=== PATIENT | male | born 1970 | race Hispanic/Latino ===

== ENCOUNTER 2016-06-23 18:26 | Inpatient (IN) | payer BC, MEDICAID ==
[2016-06-23] MEDS ORDERED: Sodium Chloride 0.9% 1,000 ML IV STA (18:59)
[2016-06-23 19:08] LABS: BASO # 0.1 K/uL (0.0-0.2); BASO % 0.6 % (0.0-2.0); EOS % 0.1 % (0.0-4.0); HEMATOCRIT 56.5 % (35.0-51.0); LYMPH # 1.1 K/uL (1.0-4.3); LYMPH % 6.1 % (20.0-40.0); MEAN CELL VOLUME 86.3 fL (80.0-94.0); MEAN CORPUSCULAR HEMOGLOBIN 28.1 pg (27.0-31.0); MEAN CORPUSCULAR HGB CONC 32.6 g/dL (33.0-37.0); MEAN PLATELET VOLUME 8.4 fL (7.2-11.7); MONO # 0.6 K/uL (0.0-0.8); MONO % 3.5 % (0.0-10.0); NRBC % 0.2 % (0.0-2.0); PLATELET COUNT 313 K/uL (130-400); RED CELL DISTRIBUTION WIDTH 13.6 % (11.5-14.5); WHITE BLOOD COUNT 18.2 K/uL (4.8-10.8)
[2016-06-23 19:20] LABS: VENOUS BLOOD GAS BASE EXCESS -29.1 mmol/L (0.0-2.0); VENOUS BLOOD GAS PCO2 12 mmHg (40-60)
[2016-06-23 19:22] LABS: NEUTROPHIL 88 % (50-75); TOTAL CELLS COUNTED 100
[2016-06-23] MEDS ORDERED: Potassium Chloride 20 mEq 100 ML IVPB ONE ×2 (19:22→19:28)
--- NOTE | 2016-06-23 19:23 | RAD ---
PROCEDURE: CHEST RADIOGRAPH, 1 VIEW HISTORY: Diabetic COMPARISON: None available. FINDINGS: LUNGS: Diffuse increased interstitial markings suggestive for venous congestion and or interstitial infiltrates. Left hilar prominence. Biapical pleural thickening with upper lobe granulomatous changes. PLEURA: As above. CARDIOVASCULAR: Cardiomegaly. Prominent aorta. OSSEOUS STRUCTURES: Degenerative changes in the spine and shoulders. VISUALIZED UPPER ABDOMEN: Normal. OTHER FINDINGS: None. IMPRESSION: Diffuse increased interstitial markings suggestive for venous congestion and or interstitial infiltrates. Left hilar prominence. Biapical pleural thickening with upper lobe granulomatous changes.
[2016-06-23 19:25] LABS: CHLORIDE 90 mmol/L (98-107); SODIUM 135 mmol/L (132-148)
[2016-06-23 19:26] LABS: POTASSIUM 4.9 mmol/L (3.6-5.2)
[2016-06-23 19:27] LABS: GFR AFRICAN-AMERICAN > 60
[2016-06-23 19:28] LABS: ALB/GLOB RATIO 1.3 (1.0-2.1); ALKALINE PHOSPHATASE 125 U/L (38-126); ALT/SGPT 26 U/L (21-72); AST/SGOT 18 U/L (17-59); BILIRUBIN,TOTAL 0.6 mg/dL (0.2-1.3); BLOOD UREA NITROGEN 24 mg/dL (9-20); TOTAL PROTEIN 7.9 g/dL (6.3-8.3)
[2016-06-23 19:29] LABS: CALCIUM 8.9 mg/dl (8.6-10.4); MAGNESIUM 2.2 mg/dL (1.6-2.3)
[2016-06-23] MEDS ORDERED: Dextrose 5%/0.9% NS 1,000 ML IV ONE (19:31)
[2016-06-23 19:36] LABS: RBC URINE < 1 /hpf (0-3); URINE BILIRUBIN NEGATIVE (NEGATIVE); URINE BLOOD 1+ (NEGATIVE); URINE COLOR Yellow (YELLOW); URINE GLUCOSE (UA) 3+ mg/dL (Normal); URINE KETONE 2+ mg/dL (NEGATIVE); URINE LEUKOCYTE ESTERASE NEG Leu/uL (Negative); URINE PROTEIN 1+ mg/dL (NEGATIVE); URINE UROBILINOGEN NORMAL mg/dL (0.2-1.0); WBC URINE 2 /hpf (0-5)
[2016-06-23] MEDS ORDERED: Sodium Chloride 0.9% 1,000 ML IV ONE (19:37)
[2016-06-23 19:56] LABS: CARBON DIOXIDE 9 mmol/L (22-30); GLUCOSE,RANDOM 589 mg/dL (75-110)
--- NOTE | 2016-06-23 20:01 | C.PDOC ---
Time Seen by Provider: 06/23/16 18:55 Chief Complaint (Nursing): High Blood Sugar History Per: Patient, Family Onset/Duration Of Symptoms: Hrs (since last night) Current Symptoms Are (Timing): Still Present Severity: Severe Current Diabetic Medications: Insulin Associated Infectious Symptoms: Nausea, Vomiting Additional History Per: Prior Records Past Medical History Reviewed: Historical Data, Nursing Documentation, Vital Signs Vital Signs: Last Vital Signs Temp Pulse 139 H 06/23/16 18:52 Resp 40 H 06/23/16 18:52 BP 147/63 06/23/16 18:52 Pulse Ox 98 06/23/16 18:52 - Medical History PMH: Diabetes (Type 1), HTN Surgical History: No Surg Hx Family History: States: Unknown Family Hx - Social History Hx Alcohol Use: No Hx Substance Use: No Review Of Systems Except As Marked, All Systems Reviewed And Found Negative. Constitutional: Positive for: Weakness Cardiovascular: Negative for: Chest Pain Respiratory: Negative for: Hemoptysis Gastrointestinal: Positive for: Nausea, Vomiting Musculoskeletal: Negative for: Neck Pain Skin: Negative for: Rash Neurological: Negative for: Weakness, Numbness, Seizures Physical Exam - Physical Exam Appears: Toxic, In Acute Distress Skin: Normal Color, Warm, Dry Head: Atraumatic, Normacephalic Eye(s): bilateral: PERRL, EOMI Oral Mucosa: Dry Neck: Normal ROM, Supple Cardiovascular: Rhythm Regular Respiratory: Normal Breath Sounds, No Accessory Muscle Use, Other (tachypnea) Gastrointestinal/Abdominal: Soft, No Tenderness Extremity: Normal ROM, No Deformity Neurological/Psych: Oriented x3, Normal Motor, Normal Sensation ED Course And Treatment - Laboratory Results Result Diagrams: 06/23/16 19:06 06/23/16 19:06 Lab Interpretation: Abnormal Interpretation Of Abnormal: Hyperglycemia. Acidosis. ECG: Interpreted By Me, Viewed By Me ECG Rhythm: Sinus Tachycardia, Nonspecific Changes ECG Interpretation: Abnormal Rate From EC O2 Sat by Pulse Oximetry: 98 Pulse Ox Interpretation: Normal - Radiology CXR: Viewed By Me, Read By Radiologist CXR Interpretation: Yes: Other (Diffuse increased interstitial markings suggestive for venous congestion and or interstitial infiltrates. Left hilar prominence. Biapical pleural thickening with upper lobe granulomatous changes.) - Physician Consult Information Physician Contacted: Boston Tucker Outcome Of Conversation: He accepted pt to ICU and agrees with current management. Progress - Interventions Interventions:: Observation, Intravenous fluid, Oxygen - Medications Administered Intravenous: Other (KCl. Insulin drip. ) - Data Reviewed Data Reviewed: Lab, Diagnostic imaging, EKG, Old records - Patient Status Patient status: Partially improved, Critical - Critical Care Citical Care: Excluding Proc Time Critical Care Time: 60 minutes - Continuity of Care Discussed patient case with:: Patient, Family-HIPPA compliant, ED Nurse, On- call PMD-pt unassigned Discussed pt. case with bi consultant/specialty: Pulmonary/Crit. Care - Patient Plan Patient Plan: Admission, ICU Disposition Discussed With DrLouis: Wang Hernandez Comment: He accepted pt on hospitalist service and agrees with current management. Doctor Will See Patient In The: Hospital Counseled Patient/Family Regarding: Studies Performed, Diagnosis - Disposition Disposition: HOSPITALIZED Disposition Time: 20:03 Condition: CRITICAL - Clinical Impression Clinical Impression: Diabetic ketoacidosis
--- NOTE | 2016-06-23 20:21 | CP.PCM.CON ---
History of Present Illness - History of Present Illness History of Present Illness: 46M DM1, HTN with acute onset of abd pain, n/v, polyuria and polydipsia that started today. Pt states he ate some seafood yesterday and is likely suffering from food poisoning. Denies brown/dizziness/chest pain/fevers/cough/sputum production. also has experienced tachypnea which prompted visit to ED. IN ED, workup reveals DKA and has been started on aggressive IVF resuscitation and Insulin gtt. ICU consult now requested. Review of Systems - Constitutional Constitutional: As Per HPI - EENT Eyes: absent: Blurred Vision, Diplopia Nose/Mouth/Throat: Dry Mouth - Cardiovascular Cardiovascular: absent: Chest Pain, Diaphoresis, Dyspnea, Edema, Irregular Heart Rhythm, Leg Edema - Respiratory Respiratory: absent: Cough, Dyspnea, Wheezing, Stridor - Gastrointestinal Gastrointestinal: Abdominal Pain, Nausea, Vomiting. absent: Diarrhea - Genitourinary Genitourinary: Urinary Frequency - Neurological Neurological: absent: Confusion, Dizziness, Numbness, Focal Weakness - Endocrine Endocrine: Polydipsia, Polyuria Past Patient History - Past Social History Smoking Status: Never Smoked Alcohol: None Drugs: Denies Home Situation {Lives}: With Family - CARDIAC Hx Hypertension: Yes - ENDOCRINE/METABOLIC Hx Diabetes Mellitus Type 1: Yes - PSYCHIATRIC Hx Substance Use: No Meds Allergies/Adverse Reactions: Allergies Allergy/AdvReac Type Severity Reaction Status Date / Time No Known Allergies Allergy Verified 06/23/16 18:52 - Medications Medications: Current Medications Acetaminophen (Tylenol 325mg Tab) 650 mg PO Q6 PRN PRN Reason: Headache Famotidine (Pepcid) 20 mg PO Q12 KIM Potassium Chloride (Potassium Chloride 20 Meq/100 Ml) 100 mls @ 50 mls/hr IVPB ONCE ONE Stop: 06/23/16 21:21 Insulin Human Regular 100 unit (/ Sodium Chloride) 100 mls @ 4 mls/hr IV .Q24H KIM PRN Reason: Protocol Sodium Chloride (Sodium Chloride 0.9%) 1,000 mls @ 1,000 mls/hr IV .Q1H ONE Stop: 06/23/16 20:36 Sodium Chloride (Sodium Chloride 0.9%) 1,000 mls @ 1,000 mls/hr IV .Q1H KIM Stop: 06/23/16 22:14 Sodium Chloride (Sodium Chloride 0.9%) 1,000 mls @ 200 mls/hr IV .Q5H [facility] Potassium Phosphate 15 mmole/ (Sodium Chloride) 255 mls @ 63 mls/hr IV ONCE ONE Stop: 06/24/16 00:12 Morphine Sulfate (Morphine) 2 mg IVP Q4H PRN PRN Reason: Pain, moderate (4-7) Ondansetron HCl (Zofran Inj) 4 mg IVP Q6H PRN PRN Reason: Nausea/Vomiting Physical Exam - Constitutional Appears: In Acute Distress (tachypneac, tachycardic) - Head Exam Head Exam: ATRAUMATIC, NORMAL INSPECTION, NORMOCEPHALIC - Eye Exam Eye Exam: EOMI, Normal appearance, PERRL - ENT Exam ENT Exam: Mucous Membranes Dry, Normal Exam - Neck Exam Neck exam: Positive for: Normal Inspection - Respiratory Exam Respiratory Exam: Clear to Auscultation Bilateral. absent: Rales, Rhonchi, Wheezes - Cardiovascular Exam Cardiovascular Exam: Tachycardia, REGULAR RHYTHM, +S1, +S2. absent: Diastolic murmur, Systolic Murmur - GI/Abdominal Exam GI & Abdominal Exam: Normal Bowel Sounds, Soft. absent: Distended, Tenderness - Extremities Exam Extremities exam: Positive for: normal inspection. Negative for: pedal edema, tenderness - Neurological Exam Neurological exam: Alert, CN II-XII Intact, Oriented x3 - Skin Skin Exam: Dry, Intact, Normal Color, Warm Results - Vital Signs Recent Vital Signs: Last Vital Signs Temp Pulse 139 H 06/23/16 18:52 Resp 40 H 06/23/16 18:52 BP 147/63 06/23/16 18:52 Pulse Ox 98 06/23/16 20:03 - Labs Result Diagrams: 06/23/16 19:06 06/23/16 19:06 Labs: Laboratory Results - last 24 hr 06/23/16 06/23/16 06/23/16 19:06 19:10 19:31 WBC 18.2 H RBC 6.54 H Hgb 18.4 H Hct 56.5 H MCV 86.3 MCH 28.1 MCHC 32.6 L RDW 13.6 Plt Count 313 MPV 8.4 Neut % (Auto) 89.7 H Lymph % (Auto) 6.1 L [place] % (Auto) 3.5 Eos % (Auto) 0.1 Baso % (Auto) 0.6 Neut # 16.3 H Lymph # 1.1 [place] # 0.6 Eos # 0.0 Baso # 0.1 Neutrophils % (Manual) 88 H Lymphocytes % (Manual) 10 L Monocytes % (Manual) 2 Platelet Estimate Normal pO2 80 H VBG pH 6.90 L* VBG pCO2 12 L* VBG HCO3 1.8 VBG Total CO2 2.8 L VBG O2 Sat (Calc) 97.6 H VBG Base Excess -29.1 L VBG Potassium 2.0 L* Glucose 284 H Lactate 1.8 Crit Value Called To Dr. gautam Crit Value Called By Chanda liriano rcp Crit Value Read Back Y Blood Gas Notified Time 1919 Sodium 135 144.0 Potassium 4.9 Chloride 90 L 126.0 H Carbon Dioxide 9 L* Anion Gap 41 H BUN 24 H Creatinine 1.5 Est GFR ( Amer) > 60 Est GFR (Non-Af Amer) 51 Random Glucose 589 H* Calcium 8.9 Phosphorus 10.0 H Magnesium 2.2 Total Bilirubin 0.6 AST 18 ALT 26 Alkaline Phosphatase 125 Troponin I < 0.0120 Total Protein 7.9 Albumin 4.4 Globulin 3.4 Albumin/Globulin Ratio 1.3 Lipase 3834 H Venous Blood Potassium 2.0 L* Urine Color Yellow Urine Clarity Clear Urine pH 5.0 Ur Specific [place] 1.023 Urine Protein 1+ H Urine Glucose (UA) 3+ H Urine Ketones 2+ H Urine Blood 1+ H Urine Nitrate Negative Urine Bilirubin Negative Urine Urobilinogen Normal Ur Leukocyte Esterase Neg Urine WBC (Auto) 2 Urine RBC (Auto) < 1 - Imaging and Cardiology Chest x-ray Status: Image reviewed by me (Poor inspiratory film; L hilar and basilar prominence) Assessment & Plan - Assessment and Plan (Free Text) Assessment: 46M DM1, HTN p/w acute DKA and possible acute pancreatitis admit to ICU cont aggressive IVF resuscitation insulin gtt with FSG q1 close monitoring of electrolytes and aggressive repletion maintain NPO follow lipase levels; if remain elevated, would consider CT scan and further workup symtomatic management and supportive care GI / DVT PPx d/w pt and family at bedside Boston Tucker MD cc time spent 40min
[2016-06-23] MEDS: Insulin Human Regular 100 UNIT in Sodium Chloride 0.9% 99 ML IV SCH (20:50)
[2016-06-23] MEDS: Sodium Chloride 0.9% 1,000 ML IV SCH ×3 (20:52→21:52)
[2016-06-23] MEDS ORDERED: Potassium Phosphate 15 MMOLE in Sodium Chloride 0.9% 250 ML IV ONE (21:00)
[2016-06-23 23:27] LABS: CHLORIDE 101 mmol/L (98-107)
[2016-06-23 23:28] LABS: SODIUM 137 mmol/L (132-148)
[2016-06-23 23:30] LABS: ALB/GLOB RATIO 1.3 (1.0-2.1); ALKALINE PHOSPHATASE 107 U/L (38-126); AST/SGOT 15 U/L (17-59); BILIRUBIN,TOTAL 0.4 mg/dL (0.2-1.3); BLOOD UREA NITROGEN 22 mg/dL (9-20); GFR AFRICAN-AMERICAN > 60; GLUCOSE,RANDOM 368 mg/dL (75-110); TOTAL PROTEIN 7.3 g/dL (6.3-8.3)
[2016-06-23 23:31] LABS: ALT/SGPT 16 U/L (21-72); CALCIUM 7.8 mg/dl (8.6-10.4); MAGNESIUM 1.9 mg/dL (1.6-2.3); PHOSPHOROUS 5.5 mg/dL (2.5-4.5)
[2016-06-23 23:35] LABS: CARBON DIOXIDE < 5 mmol/L (22-30); POTASSIUM 6.3 mmol/L (3.6-5.2)
[2016-06-24] MEDS: Sodium Chloride 0.9% 1,000 ML IV SCH ×3 (01:00→06:00)
--- NOTE | 2016-06-24 05:14 | CP.PCM.HP ---
<Jennifer Romero - Last Filed: 06/24/16 04:59> History of Present Illness - History of Present Illness History of Present Illness: CC: nausea, vomiting, hyperglycemia HPI: Pt is a 46 year old male who presented to the ED with nausea, vomiting, polydipsia, and hyperglycemia. Patient notes he started to have abdominal pain and emesis at 3 AM on Friday which he attributed to food poisoning from eating shellfish the night prior. Patient states he checked his blood sugar around 5 am and noted it to be in the 400s. Patient developed significant shortness of breath in the afternoon which prompted him to come to the hospital. Patient states he does not regularly check his sugars. He is compliant with his medications: Lantus 35 U SC BID and Humolog 10 U before breakfast. Patient states he was diagnosed with DM type I 10 years ago and was last hospitalized with DKA 5 years ago. Initial VBG: pH 6.90, pCO2 12, HCO3 1.8, Potassium 2.0, High Anion Gap 36 Glucose 284, repeat potassium and glucose 4.9 and 589, respectively Patient admitted to ICU for DKA. PMD: Dr. Martin PMH: DM type I , HTN Medications: Lantus 35 U SC BID and Humolog 10 U before breakfast Allergies: NKDA Family History: Grandfather: CAD Surgical Hx: Detached retina repair, Cyst excision to back Social: Never smoker. Denies alcohol and illicit drug use. Present on Admission - Present on Admission Any Indicators Present on Admission: No History of DVT/PE: No History of Uncontrolled Diabetes: Yes Urinary Catheter: No Decubitus Ulcer Present: No Review of Systems - Constitutional Constitutional: absent: Chills, Fever, Headache, Weakness - EENT Eyes: absent: Change in Vision - Cardiovascular Cardiovascular: absent: Chest Pain, Dyspnea - Respiratory Respiratory: absent: Dyspnea on Exertion - Gastrointestinal Gastrointestinal: Abdominal Pain, Nausea, Vomiting. absent: Constipation, Diarrhea - Genitourinary Genitourinary: absent: Urinary Frequency - Musculoskeletal Musculoskeletal: absent: Arthralgias, Back Pain - Integumentary Integumentary: absent: Changing Lesions, New Lesions - Neurological Neurological: absent: Confusion, Dizziness, Focal Weakness, Headaches - Psychiatric Psychiatric: absent: Anxiety Past Patient History - Past Medical History & Family History Past Medical History?: Yes - Past Social History Smoking Status: Never Smoked - CARDIAC Hx Cardiac Disorders: Yes Hx Hypertension: Yes - PULMONARY Hx Respiratory Disorders: No - NEUROLOGICAL Hx Neurological Disorder: No - HEENT Hx HEENT Problems: No - RENAL Hx Chronic Kidney Disease: No - ENDOCRINE/METABOLIC Hx Endocrine Disorders: Yes Hx Diabetes Mellitus Type 1: Yes - HEMATOLOGICAL/ONCOLOGICAL Hx Blood Disorders: No - INTEGUMENTARY Hx Dermatological Problems: No - MUSCULOSKELETAL/RHEUMATOLOGICAL Hx Musculoskeletal Disorders: No Hx Falls: No - GASTROINTESTINAL Hx Gastrointestinal Disorders: No - GENITOURINARY/GYNECOLOGICAL Hx Genitourinary Disorders: No - PSYCHIATRIC Hx Psychophysiologic Disorder: No Hx Substance Use: No - SURGICAL HISTORY Hx Surgeries: No - ANESTHESIA Hx Anesthesia: No Meds Allergies/Adverse Reactions: Allergies Allergy/AdvReac Type Severity Reaction Status Date / Time No Known Allergies Allergy Verified 06/23/16 18:52 Physical Exam - Constitutional Appears: Non-toxic Additional comments: increased respiratory rate - Head Exam Head Exam: ATRAUMATIC, NORMAL INSPECTION, NORMOCEPHALIC - Eye Exam Eye Exam: EOMI, Normal appearance, PERRL - ENT Exam ENT Exam: Mucous Membranes Moist - Neck Exam Neck exam: Positive for: Normal Inspection - Respiratory Exam Respiratory Exam: Clear to Auscultation Bilateral Additional comments: increased respiratory rate - Cardiovascular Exam Cardiovascular Exam: Tachycardia, +S1, +S2. absent: Diastolic murmur, Systolic Murmur - GI/Abdominal Exam GI & Abdominal Exam: Normal Bowel Sounds, Soft. absent: Firm, Guarding - Extremities Exam Extremities exam: Positive for: normal inspection. Negative for: pedal edema, tenderness - Back Exam Back exam: NORMAL INSPECTION - Neurological Exam Neurological exam: Oriented x3 - Psychiatric Exam Psychiatric exam: Normal Affect, Normal Mood - Skin Skin Exam: Intact, Normal Color Results - Vital Signs Recent Vital Signs: Last Vital Signs Temp 97.2 F L 06/24/16 04:00 Pulse 119 H 06/24/16 04:00 Resp 35 H 06/24/16 04:00 BP 135/82 06/24/16 03:30 Pulse Ox 100 06/24/16 04:00 - Labs Result Diagrams: 06/23/16 19:06 06/23/16 23:22 Labs: Laboratory Results - last 24 hr 06/23/16 06/23/16 06/23/16 20:27 22:40 23:12 Sodium Potassium Chloride Carbon Dioxide Anion Gap BUN Creatinine Est GFR ( Amer) Est GFR (Non-Af Amer) POC Glucose (mg/dL) 341 H 288 H 252 H Random Glucose Calcium Phosphorus Magnesium Total Bilirubin AST ALT Alkaline Phosphatase Total Protein Albumin Globulin Albumin/Globulin Ratio 06/23/16 06/24/16 06/24/16 23:22 00:17 01:13 Sodium 137 Potassium 6.3 H* D Chloride 101 Carbon Dioxide < 5 L* D Anion Gap 37 H BUN 22 H Creatinine 1.2 Est GFR ( Amer) > 60 Est GFR (Non-Af Amer) > 60 POC Glucose (mg/dL) 300 H 341 H Random Glucose 368 H Calcium 7.8 L Phosphorus 5.5 H Magnesium 1.9 Total Bilirubin 0.4 AST 15 L ALT 16 L D Alkaline Phosphatase 107 Total Protein 7.3 Albumin 4.1 Globulin 3.2 Albumin/Globulin Ratio 1.3 06/24/16 06/24/16 06/24/16 02:05 03:09 03:57 Sodium Potassium Chloride Carbon Dioxide Anion Gap BUN Creatinine Est GFR ( Amer) Est GFR (Non-Af Amer) POC Glucose (mg/dL) 242 H 262 H 200 H Random Glucose Calcium Phosphorus Magnesium Total Bilirubin AST ALT Alkaline Phosphatase Total Protein Albumin Globulin Albumin/Globulin Ratio Assessment & Plan - Assessment and Plan (Free Text) Assessment: 1. DKA Admit to ICU Insulin drip Normal Saline IV @200cc/hr Potassium Chloride IV Zofran 4 mg IVP Q6h Accuchecks q1h f/u hemoglobin a1c Continue care per ICU team - Date & Time Date: 06/24/16 Time: 05:20 <Wang Hernandez P - Last Filed: 06/28/16 08:38> Results - Vital Signs Recent Vital Signs: Last Vital Signs Temp 98.1 F 06/28/16 07:23 Pulse 78 06/28/16 07:23 Resp 20 06/28/16 07:23 BP 140/81 06/28/16 07:23 Pulse Ox 96 06/28/16 07:23 - Labs Result Diagrams: 06/28/16 07:40 06/28/16 07:40 Labs: Laboratory Results - last 24 hr 06/27/16 06/27/16 06/27/16 08:27 12:01 16:43 WBC RBC Hgb Hct MCV MCH MCHC RDW Plt Count MPV Neut % (Auto) Lymph % (Auto) [place] % (Auto) Eos % (Auto) Baso % (Auto) Neut # Lymph # [place] # Eos # Baso # Sodium 134 Potassium 3.4 L Chloride 102 Carbon Dioxide 17 L Anion Gap 18 BUN 8 L Creatinine 0.6 L Est GFR ( Amer) > 60 Est GFR (Non-Af Amer) > 60 POC Glucose (mg/dL) 162 H 139 H Random Glucose 128 H Calcium 7.8 L Phosphorus 2.6 Magnesium 1.8 Total Bilirubin 0.9 AST 16 L ALT 26 Alkaline Phosphatase 70 Total Protein 6.0 L Albumin 2.9 L D Globulin 3.2 Albumin/Globulin Ratio 0.9 L Triglycerides 98 Cholesterol 146 LDL Cholesterol Direct 91 HDL Cholesterol 33 Lipase 748 H TSH 3rd Generation 3.35 06/27/16 06/28/16 06/28/16 22:06 06:06 07:01 WBC RBC Hgb Hct MCV MCH MCHC RDW Plt Count MPV Neut % (Auto) Lymph % (Auto) [place] % (Auto) Eos % (Auto) Baso % (Auto) Neut # Lymph # [place] # Eos # Baso # Sodium Potassium Chloride Carbon Dioxide Anion Gap BUN Creatinine Est GFR ( Amer) Est GFR (Non-Af Amer) POC Glucose (mg/dL) 71 111 H 94 Random Glucose Calcium Phosphorus Magnesium Total Bilirubin AST ALT Alkaline Phosphatase Total Protein Albumin Globulin Albumin/Globulin Ratio Triglycerides Cholesterol LDL Cholesterol Direct HDL Cholesterol Lipase TSH 3rd Generation 06/28/16 07:40 WBC 5.7 RBC 4.99 Hgb 13.5 Hct 39.7 MCV 79.5 L D MCH 27.1 MCHC 34.1 RDW 13.5 Plt Count 169 MPV 7.9 Neut % (Auto) 60.3 Lymph % (Auto) 26.7 [place] % (Auto) 10.6 H Eos % (Auto) 1.8 Baso % (Auto) 0.6 Neut # 3.4 Lymph # 1.5 [place] # 0.6 Eos # 0.1 Baso # 0.0 Sodium 137 Potassium 3.0 L Chloride 102 Carbon Dioxide 21 L Anion Gap 17 BUN 7 L Creatinine 0.6 L Est GFR ( Amer) > 60 Est GFR (Non-Af Amer) > 60 POC Glucose (mg/dL) Random Glucose 106 Calcium 7.8 L Phosphorus 3.2 Magnesium 1.8 Total Bilirubin 0.6 AST 12 L D ALT 17 L D Alkaline Phosphatase 63 Total Protein 5.5 L Albumin 2.8 L Globulin 2.8 Albumin/Globulin Ratio 1.0 Triglycerides Cholesterol LDL Cholesterol Direct HDL Cholesterol Lipase TSH 3rd Generation Attending/Attestation - Attestation I have personally seen and examined this patient.: Yes I have fully participated in the care of the patient.: Yes I have reviewed all pertinent clinical information: Yes
[2016-06-24 06:37] LABS: BASO # 0.1 K/uL (0.0-0.2); BASO % 0.4 % (0.0-2.0); HEMATOCRIT 49.5 % (35.0-51.0); LYMPH # 1.4 K/uL (1.0-4.3); LYMPH % 10.1 % (20.0-40.0); MEAN CELL VOLUME 82.8 fL (80.0-94.0); MEAN CORPUSCULAR HGB CONC 33.8 g/dL (33.0-37.0); MEAN PLATELET VOLUME 7.9 fL (7.2-11.7); MONO # 1.3 K/uL (0.0-0.8); MONO % 8.8 % (0.0-10.0); NRBC % 0.1 % (0.0-2.0); RED CELL DISTRIBUTION WIDTH 13.6 % (11.5-14.5); WHITE BLOOD COUNT 14.2 K/uL (4.8-10.8)
[2016-06-24 06:40] LABS: CHLORIDE 105 mmol/L (98-107); POTASSIUM 5.7 mmol/L (3.6-5.2); SODIUM 141 mmol/L (132-148)
[2016-06-24 06:42] LABS: ALB/GLOB RATIO 1.1 (1.0-2.1); AMYLASE 813 U/L (30-110); BILIRUBIN,TOTAL 0.7 mg/dL (0.2-1.3); GFR AFRICAN-AMERICAN > 60; TOTAL PROTEIN 7.1 g/dL (6.3-8.3)
[2016-06-24 06:43] LABS: ALKALINE PHOSPHATASE 85 U/L (38-126); ALT/SGPT 26 U/L (21-72); AST/SGOT 17 U/L (17-59); BLOOD UREA NITROGEN 18 mg/dL (9-20); CALCIUM 8.1 mg/dl (8.6-10.4); GLUCOSE,RANDOM 190 mg/dL (75-110); MAGNESIUM 2.1 mg/dL (1.6-2.3); PHOSPHOROUS 2.7 mg/dL (2.5-4.5)
[2016-06-24 06:53] LABS: CARBON DIOXIDE 11 mmol/L (22-30)
[2016-06-24 07:12] LABS: THYROID STIMULATING HORMONE 1.02 mIU/L (0.46-4.68)
[2016-06-24] MEDS: Dextrose 5%/0.9% NS 1,000 ML IV SCH ×3 (07:30→20:06)
[2016-06-24] MEDS ORDERED: Sodium Chloride 0.9% 1,000 ML IV SCH (07:39)
--- NOTE | 2016-06-24 09:16 | CP.PCM.PN ---
Subjective - Date & Time of Evaluation Date of Evaluation: 06/24/16 Time of Evaluation: 09:10 - Subjective Subjective: Medical Attending Note Follow-up: DKA, Abdominal Pain Patient seen and examined. Patient denies headache, denies chest pain, denies shortness of breathe, denies abdominal pain, denies nausea, denies vomitting, denies BRBPR, denies constipation, denies diarrhea. Patient reports 1.5 days ago, he went to a restaurant which is known to him from before, but it was the first time he was trying seafood. Patient denies swelling, denies itchiness, denies allergy type symptoms. Objective - Vital Signs/Intake and Output Vital Signs (last 24 hours): Temp Pulse Resp BP Pulse Ox 97.2 F L 114 H 22 132/71 100 06/24/16 04:00 06/24/16 07:00 06/24/16 07:00 06/24/16 06:30 06/24/16 07:00 Intake and Output: 06/24/16 06/24/16 06:59 18:59 Intake Total 2698 202 Output Total 3900 150 Balance -1202 52 - Medications Medications: Current Medications Acetaminophen (Tylenol 325mg Tab) 650 mg PO Q6 PRN PRN Reason: Headache Famotidine (Pepcid) 20 mg PO Q12 [facility] Last Admin: 06/23/16 21:44 Dose: 20 mg Insulin Human Regular 100 unit (/ Sodium Chloride) 100 mls @ 4 mls/hr IV .Q24H KIM PRN Reason: Protocol Last Titration: 06/24/16 05:15 Dose: 2 units/hr Dextrose/Sodium Chloride (Dextrose 5%/0.9% Ns 1000 Ml) 1,000 mls @ 175 mls/hr IV .Q5H43M KIM Sodium Chloride (Sodium Chloride 0.9%) 1,000 mls @ 50 mls/hr IV .Q20H KIM Morphine Sulfate (Morphine) 2 mg IVP Q4H PRN PRN Reason: Pain, moderate (4-7) Ondansetron HCl (Zofran Inj) 4 mg IVP Q6H PRN PRN Reason: Nausea/Vomiting - Labs Labs: 06/24/16 06:20 06/24/16 06:20 - Constitutional Appears: Non-toxic, No Acute Distress - Head Exam Head Exam: NORMAL INSPECTION - Eye Exam Eye Exam: EOMI - ENT Exam ENT Exam: Mucous Membranes Moist - Respiratory Exam Respiratory Exam: Clear to Ausculation Bilateral, NORMAL BREATHING PATTERN. absent: Rales, Rhonchi - Cardiovascular Exam Cardiovascular Exam: RRR, +S1, +S2 - GI/Abdominal Exam GI & Abdominal Exam: Soft, Tenderness (generalized), Normal Bowel Sounds. absent: Distended, Firm, Guarding, Rigid, Rebound - Extremities Exam Extremities Exam: absent: Pedal Edema, Tenderness - Neurological Exam Neurological Exam: Alert, Awake, Oriented x3 - Psychiatric Exam Psychiatric exam: Normal Affect, Normal Mood - Skin Skin Exam: Dry, Normal Color, Warm Assessment and Plan (1) DKA (diabetic ketoacidosis) Assessment & Plan: D5 NS 175 cc/hr Monitor anion gap Monitor potassium Monitor CO2 Insulin drip Management per ICU Patient reports he is compliant on his insulin regiment, and reports he sees a genetic coordinator (a doctor) as an outpatient. Status: Acute (2) Abdominal pain Assessment & Plan: Lipase uptrendning Mild abdominal pain upon palpation Ordered for blood alcohol, lipid panel Abdominal US ordered check for CBD/gallstones Ordered for CT abdomen/pelvis PO contrast Status: Acute (3) Prophylactic measure Assessment & Plan: DVT ppx: Lovenox 40mg subq daily GI ppx: Pepcid 20mg IV Q 12hours Status: Acute
[2016-06-24] MEDS ORDERED: Pneumococcal 23-Valent Vaccine SC ONE (09:50)
[2016-06-24] MEDS ORDERED: Enoxaparin 40 mg Syringe SC SCH (10:00)
[2016-06-24] MEDS: Enoxaparin 40 mg Syringe SC SCH (10:44)
--- NOTE | 2016-06-24 11:04 | US ---
HISTORY: check CBD, gallstones COMPARISON: None. TECHNIQUE: Sonographic evaluation of the abdomen. FINDINGS: LIVER: Measures 15.5 cm. There is diffuse increased echogenicity of the liver parenchyma. No mass. No intrahepatic bile duct dilatation. GALLBLADDER: The gallbladder is well distended without evidence of gallstones, wall thickening or pericholecystic fluid. The sonographic Russo's sign is negative. COMMON BILE DUCT: Measures 0.3 mm. No stones. No dilatation. PANCREAS: Unremarkable as visualized. No mass. No ductal dilatation. RIGHT KIDNEY: Measures 13.2cm. Normal echogenicity. No calculus, mass, or hydronephrosis. LEFT KIDNEY: Measures 13.2cm. Normal echogenicity. No calculus, mass, or hydronephrosis. SPLEEN: Normal in size and contour. No mass. AORTA: No aneurysmal dilatation. IVC: Unremarkable. OTHER FINDINGS: There is small amount of free fluid in the Morison's pouch. IMPRESSION: Diffuse increased echogenicity in the liver may reflect hepatic steatosis however parenchymal infectious/ inflammatory etiologies cannot be entirely excluded. Clinical and laboratory correlation is advised. No evidence of cholelithiasis or biliary dilatation.
[2016-06-24] MEDS ORDERED: Iohexol 240 (50 ml) PO ONE (11:30)
--- NOTE | 2016-06-24 14:29 | CT ---
PROCEDURE: CT Abdomen and Pelvis without IV contrast. HISTORY: abdominal pain, elevated lipase COMPARISON: Abdominal ultrasound performed 06/24/16 TECHNIQUE: Contiguous axial images of the abdomen and pelvis. Oral contrast was administered. No IV contrast given. Coronal and Sagittal reformats generated and reviewed. Radiation dose: Total exam DLP = 1149.04 mGy-cm. FINDINGS: There is limited evaluation of the solid organs without the administration of IV contrast. LOWER THORAX: Mild bibasilar atelectasis. There is no visible pleural effusion or pneumothorax. Small hiatal hernia/distal esophageal wall thickening and evidence of gastroesophageal reflux. LIVER: Unremarkable unenhanced appearance. GALLBLADDER AND BILE DUCTS: Unremarkable unenhanced appearance. PANCREAS: Peripancreatic inflammatory stranding, peripancreatic adenopathy, and mild pancreatic edema consistent with acute pancreatitis. SPLEEN: Unremarkable unenhanced appearance. ADRENALS: Unremarkable unenhanced appearance. KIDNEYS AND URETERS: No hydronephrosis or obstructing renal calculus. BLADDER: The urinary bladder appears unremarkable. REPRODUCTIVE: Unremarkable. APPENDIX: The appendix appears within normal limits of caliber. No secondary signs of acute appendicitis. BOWEL: The stomach is nondistended. The bowel loops appear within normal limits of caliber without evidence of intestinal obstruction. PERITONEUM: No significant free fluid. No definite free air. LYMPH NODES: Prominent peripancreatic lymph nodes. VASCULATURE: No aortic aneurysm. BONES: No acute osseous abnormality is detected. OTHER FINDINGS: None. IMPRESSION: Peripancreatic inflammatory stranding, peripancreatic adenopathy, and mild pancreatic edema consistent with acute pancreatitis. Small hiatal hernia/distal esophageal wall thickening and evidence of gastroesophageal reflux. Recommend further evaluation with endoscopy given prominent distal esophageal wall thickening of unclear significance.
[2016-06-24 14:54] LABS: CHLORIDE 106 mmol/L (98-107)
[2016-06-24 14:56] LABS: POTASSIUM 3.9 mmol/L (3.6-5.2); SODIUM 136 mmol/L (132-148)
[2016-06-24 14:57] LABS: BILIRUBIN,TOTAL 0.6 mg/dL (0.2-1.3); CARBON DIOXIDE 13 mmol/L (22-30); GFR AFRICAN-AMERICAN > 60
[2016-06-24 14:58] LABS: ALKALINE PHOSPHATASE 75 U/L (38-126); ALT/SGPT 23 U/L (21-72); AST/SGOT 20 U/L (17-59); BLOOD UREA NITROGEN 13 mg/dL (9-20); CALCIUM 7.9 mg/dl (8.6-10.4); CHOLESTEROL 171 mg/dL (0-199); GLUCOSE,RANDOM 197 mg/dL (75-110); PHOSPHOROUS 2.3 mg/dL (2.5-4.5); TOTAL PROTEIN 6.3 g/dL (6.3-8.3)
[2016-06-24 14:59] LABS: ALCOHOL SERUM < 10 mg/dl (0-10); MAGNESIUM 1.8 mg/dL (1.6-2.3)
[2016-06-24] MEDS: Potassium Phosphate 15 MMOLE in Sodium Chloride 0.9% 250 ML IVPB ONE ×2 (17:51→20:08)
--- NOTE | 2016-06-24 17:56 | CP.CCUPN ---
CCU Subjective - Physician Review Subjective (Free Text): 06/24/16 17:54 Patient seen and examined at bedside. No additional acute events overnight per nursing. Pt states his abdominal pain has resolved and he is feeling better. Patient urinating without problems. Patient denies chest pain, shortness of breath, nausea, vomiting, diarrhea, headaches, paresthesias, abdominal pain at this time. Critical Care Time Spent (in minutes): 45 CCU Objective - Vital Signs / Intake & Output Vital Signs (Last 4 hours): Vital Signs Pulse Resp BP Pulse Ox 06/24/16 15:31 100 H 33 H 133/89 100 06/24/16 15:00 90 16 100 06/24/16 14:32 102 H 33 H 132/70 100 06/24/16 14:22 100 H 32 H 99 06/24/16 14:01 108 H 17 Intake and Output (Last 8hrs): Intake & Output 06/24/16 06/24/16 06/24/16 06:59 14:59 22:59 Intake Total 1626 2597 228 Output Total 2700 1450 400 Balance -1074 1147 -172 Intake: Intake, IV Amount 1626 1797 228 Right Antecubital 26 22 3 Left Antecubital 1225 175 Left Hand 1600 550 50 Oral 800 Output: Urine 2700 1450 400 Urine, Voided 2700 1450 400 Other: # Voids Urine, Voided 1 1 - Physical Exam Physical Exam Limitations: Negative for: Altered Mental Status Head: Positive for: Atraumatic, Normocephalic Pupils: Positive for: PERRL Extroacular Muscles: Positive for: EOMI Conjunctiva: Positive for: Normal Mouth: Positive for: Moist Mucous Membranes Nose (External): Negative for: Atraumatic, Abrasion Nose (Internal): Positive for: Normal Inspection Neck: Positive for: Normal Range of Motion Respiratory/Chest: Positive for: Clear to Auscultation. Negative for: Wheezes Cardiovascular: Positive for: Regular Rate and Rhythm, Normal S1, S2 Abdomen: Positive for: Distention. Negative for: Tenderness Back: Positive for: Normal Inspection Upper Extremity: Positive for: Normal Inspection, Normal ROM. Negative for: Edema Lower Extremity: Positive for: Normal Inspection. Negative for: CALF TENDERNESS Neurological: Positive for: CN II-XII Intact, Speech Normal, Normal Sensory Function Skin: Positive for: Warm, Dry, Normal Color Psychiatric: Positive for: Alert, Oriented x 3, Normal Insight, Normal Concentration, Normal Affect, Normal Mood - Medications Active Medications: Active Medications Generic Name Dose Route Start Last Admin Trade Name Freq PRN Reason Stop Dose Admin Acetaminophen 650 mg 06/23/16 20:21 Tylenol 325mg Tab PO Q6 PRN Headache Enoxaparin Sodium 40 mg 06/24/16 10:00 06/24/16 10:44 Lovenox SC 40 mg DAILY KIM Administration Famotidine 20 mg 06/23/16 22:00 06/24/16 10:44 Pepcid PO 20 mg Q12 KIM Administration Insulin Human Regular 100 unit 100 mls @ 4 mls/hr 06/23/16 19:30 06/24/16 05:15 / Sodium Chloride IV 2 units/hr .Q24H KIM Titration Protocol Dextrose/Sodium Chloride 1,000 mls @ 175 mls/hr 06/24/16 07:45 06/24/16 07:30 Dextrose 5%/0.9% Ns 1000 Ml IV 175 mls/hr .Q5H43M KIM Administration Sodium Chloride 1,000 mls @ 50 mls/hr 06/24/16 07:39 06/24/16 07:30 Sodium Chloride 0.9% IV 50 mls/hr .Q20H KIM Administration Potassium Phosphate 15 mmole/ 255 mls @ 42.5 mls/hr 06/24/16 17:30 Sodium Chloride IVPB 06/24/16 23:29 ONCE ONE Morphine Sulfate 2 mg 06/23/16 20:09 Morphine IVP Q4H PRN Pain, moderate (4-7) Ondansetron HCl 4 mg 06/23/16 20:09 Zofran Inj IVP Q6H PRN Nausea/Vomiting - Patient Studies Lab Studies: Lab Studies 06/24/16 06/24/16 06/24/16 Range/Units 17:19 16:04 14:40 WBC (4.8-10.8) K/uL RBC (4.40-5.90) Mil/uL Hgb (12.0-18.0) g/dL Hct (35.0-51.0) % MCV (80.0-94.0) fL MCH (27.0-31.0) pg MCHC (33.0-37.0) g/dL RDW (11.5-14.5) % Plt Count (130-400) K/uL MPV (7.2-11.7) fL Neut % (Auto) (50.0-75.0) % Lymph % (Auto) (20.0-40.0) % [place] % (Auto) (0.0-10.0) % Eos % (Auto) (0.0-4.0) % Baso % (Auto) (0.0-2.0) % Neut # (1.8-7.0) K/uL Lymph # (1.0-4.3) K/uL [place] # (0.0-0.8) K/uL Eos # (0.0-0.7) K/uL Baso # (0.0-0.2) K/uL Sodium 136 (132-148) mmol/L Potassium 3.9 (3.6-5.2) mmol/L Chloride 106 (98-107) mmol/L Carbon Dioxide 13 L (22-30) mmol/L Anion Gap 21 H (10-20) BUN 13 (9-20) mg/dL Creatinine 0.9 (0.8-1.5) MG/DL Est GFR ( Amer) > 60 Est GFR (Non-Af Amer) > 60 POC Glucose (mg/dL) 179 H 225 H (65-110) mg/dL Random Glucose 197 H (75-110) mg/dL Hemoglobin A1c (4.2-6.5) % Calcium 7.9 L (8.6-10.4) mg/dl Phosphorus 2.3 L (2.5-4.5) mg/dL Magnesium 1.8 (1.6-2.3) mg/dL Total Bilirubin 0.6 (0.2-1.3) mg/dL AST 20 (17-59) U/L ALT 23 (21-72) U/L Alkaline Phosphatase 75 (38-126) U/L Total Protein 6.3 (6.3-8.3) g/dL Albumin 3.1 L (3.5-5.0) g/dL Globulin 3.2 (2.2-3.9) gm/dL Albumin/Globulin Ratio 1.0 (1.0-2.1) Triglycerides 122 (0-149) mg/dL Cholesterol 171 (0-199) mg/dL LDL Cholesterol Direct 110 (0-129) mg/dL HDL Cholesterol 39 (30-70) mg/dL Amylase (30-110) U/L Lipase 4940 H (23-300) U/L TSH 3rd Generation (0.46-4.68) mIU/L Alcohol, Quantitative < 10 (0-10) mg/dl 06/24/16 06/24/16 06/24/16 Range/Units 14:28 11:05 10:11 WBC (4.8-10.8) K/uL RBC (4.40-5.90) Mil/uL Hgb (12.0-18.0) g/dL Hct (35.0-51.0) % MCV (80.0-94.0) fL MCH (27.0-31.0) pg MCHC (33.0-37.0) g/dL RDW (11.5-14.5) % Plt Count (130-400) K/uL MPV (7.2-11.7) fL Neut % (Auto) (50.0-75.0) % Lymph % (Auto) (20.0-40.0) % [place] % (Auto) (0.0-10.0) % Eos % (Auto) (0.0-4.0) % Baso % (Auto) (0.0-2.0) % Neut # (1.8-7.0) K/uL Lymph # (1.0-4.3) K/uL [place] # (0.0-0.8) K/uL Eos # (0.0-0.7) K/uL Baso # (0.0-0.2) K/uL Sodium (132-148) mmol/L Potassium (3.6-5.2) mmol/L Chloride (98-107) mmol/L Carbon Dioxide (22-30) mmol/L Anion Gap (10-20) BUN (9-20) mg/dL Creatinine (0.8-1.5) MG/DL Est GFR ( Amer) Est GFR (Non-Af Amer) POC Glucose (mg/dL) 195 H 209 H 187 H (65-110) mg/dL Random Glucose (75-110) mg/dL Hemoglobin A1c (4.2-6.5) % Calcium (8.6-10.4) mg/dl Phosphorus (2.5-4.5) mg/dL Magnesium (1.6-2.3) mg/dL Total Bilirubin (0.2-1.3) mg/dL AST (17-59) U/L ALT (21-72) U/L Alkaline Phosphatase (38-126) U/L Total Protein (6.3-8.3) g/dL Albumin (3.5-5.0) g/dL Globulin (2.2-3.9) gm/dL Albumin/Globulin Ratio (1.0-2.1) Triglycerides (0-149) mg/dL Cholesterol (0-199) mg/dL LDL Cholesterol Direct (0-129) mg/dL HDL Cholesterol (30-70) mg/dL Amylase (30-110) U/L Lipase (23-300) U/L TSH 3rd Generation (0.46-4.68) mIU/L Alcohol, Quantitative (0-10) mg/dl 06/24/16 06/24/16 06/24/16 Range/Units 09:20 08:20 07:08 WBC (4.8-10.8) K/uL RBC (4.40-5.90) Mil/uL Hgb (12.0-18.0) g/dL Hct (35.0-51.0) % MCV (80.0-94.0) fL MCH (27.0-31.0) pg MCHC (33.0-37.0) g/dL RDW (11.5-14.5) % Plt Count (130-400) K/uL MPV (7.2-11.7) fL Neut % (Auto) (50.0-75.0) % Lymph % (Auto) (20.0-40.0) % [place] % (Auto) (0.0-10.0) % Eos % (Auto) (0.0-4.0) % Baso % (Auto) (0.0-2.0) % Neut # (1.8-7.0) K/uL Lymph # (1.0-4.3) K/uL [place] # (0.0-0.8) K/uL Eos # (0.0-0.7) K/uL Baso # (0.0-0.2) K/uL Sodium (132-148) mmol/L Potassium (3.6-5.2) mmol/L Chloride (98-107) mmol/L Carbon Dioxide (22-30) mmol/L Anion Gap (10-20) BUN (9-20) mg/dL Creatinine (0.8-1.5) MG/DL Est GFR ( Amer) Est GFR (Non-Af Amer) POC Glucose (mg/dL) 205 H 189 H 198 H (65-110) mg/dL Random Glucose (75-110) mg/dL Hemoglobin A1c (4.2-6.5) % Calcium (8.6-10.4) mg/dl Phosphorus (2.5-4.5) mg/dL Magnesium (1.6-2.3) mg/dL Total Bilirubin (0.2-1.3) mg/dL AST (17-59) U/L ALT (21-72) U/L Alkaline Phosphatase (38-126) U/L Total Protein (6.3-8.3) g/dL Albumin (3.5-5.0) g/dL Globulin (2.2-3.9) gm/dL Albumin/Globulin Ratio (1.0-2.1) Triglycerides (0-149) mg/dL Cholesterol (0-199) mg/dL LDL Cholesterol Direct (0-129) mg/dL HDL Cholesterol (30-70) mg/dL Amylase (30-110) U/L Lipase (23-300) U/L TSH 3rd Generation (0.46-4.68) mIU/L Alcohol, Quantitative (0-10) mg/dl 06/24/16 06/24/16 06/24/16 Range/Units 06:21 06:20 05:13 WBC 14.2 H (4.8-10.8) K/uL RBC 5.98 H (4.40-5.90) Mil/uL Hgb 16.8 (12.0-18.0) g/dL Hct 49.5 (35.0-51.0) % MCV 82.8 D (80.0-94.0) fL MCH 28.0 (27.0-31.0) pg MCHC 33.8 (33.0-37.0) g/dL RDW 13.6 (11.5-14.5) % Plt Count 235 (130-400) K/uL MPV 7.9 (7.2-11.7) fL Neut % (Auto) 80.7 H (50.0-75.0) % Lymph % (Auto) 10.1 L (20.0-40.0) % [place] % (Auto) 8.8 (0.0-10.0) % Eos % (Auto) 0.0 (0.0-4.0) % Baso % (Auto) 0.4 (0.0-2.0) % Neut # 11.5 H (1.8-7.0) K/uL Lymph # 1.4 (1.0-4.3) K/uL [place] # 1.3 H (0.0-0.8) K/uL Eos # 0.0 (0.0-0.7) K/uL Baso # 0.1 (0.0-0.2) K/uL Sodium 141 (132-148) mmol/L Potassium 5.7 H (3.6-5.2) mmol/L Chloride 105 (98-107) mmol/L Carbon Dioxide 11 L* D (22-30) mmol/L Anion Gap 31 H (10-20) BUN 18 (9-20) mg/dL Creatinine 1.1 (0.8-1.5) MG/DL Est GFR ( Amer) > 60 Est GFR (Non-Af Amer) > 60 POC Glucose (mg/dL) 170 H 173 H (65-110) mg/dL Random Glucose 190 H (75-110) mg/dL Hemoglobin A1c 12.0 H (4.2-6.5) % Calcium 8.1 L (8.6-10.4) mg/dl Phosphorus 2.7 (2.5-4.5) mg/dL Magnesium 2.1 (1.6-2.3) mg/dL Total Bilirubin 0.7 (0.2-1.3) mg/dL AST 17 (17-59) U/L ALT 26 (21-72) U/L Alkaline Phosphatase 85 (38-126) U/L Total Protein 7.1 (6.3-8.3) g/dL Albumin 3.7 (3.5-5.0) g/dL Globulin 3.4 (2.2-3.9) gm/dL Albumin/Globulin Ratio 1.1 (1.0-2.1) Triglycerides (0-149) mg/dL Cholesterol (0-199) mg/dL LDL Cholesterol Direct (0-129) mg/dL HDL Cholesterol (30-70) mg/dL Amylase 813 H (30-110) U/L Lipase 4423 H (23-300) U/L TSH 3rd Generation 1.02 (0.46-4.68) mIU/L Alcohol, Quantitative (0-10) mg/dl 06/24/16 06/24/16 06/24/16 Range/Units 03:57 03:09 02:05 WBC (4.8-10.8) K/uL RBC (4.40-5.90) Mil/uL Hgb (12.0-18.0) g/dL Hct (35.0-51.0) % MCV (80.0-94.0) fL MCH (27.0-31.0) pg MCHC (33.0-37.0) g/dL RDW (11.5-14.5) % Plt Count (130-400) K/uL MPV (7.2-11.7) fL Neut % (Auto) (50.0-75.0) % Lymph % (Auto) (20.0-40.0) % [place] % (Auto) (0.0-10.0) % Eos % (Auto) (0.0-4.0) % Baso % (Auto) (0.0-2.0) % Neut # (1.8-7.0) K/uL Lymph # (1.0-4.3) K/uL [place] # (0.0-0.8) K/uL Eos # (0.0-0.7) K/uL Baso # (0.0-0.2) K/uL Sodium (132-148) mmol/L Potassium (3.6-5.2) mmol/L Chloride (98-107) mmol/L Carbon Dioxide (22-30) mmol/L Anion Gap (10-20) BUN (9-20) mg/dL Creatinine (0.8-1.5) MG/DL Est GFR ( Amer) Est GFR (Non-Af Amer) POC Glucose (mg/dL) 200 H 262 H 242 H (65-110) mg/dL Random Glucose (75-110) mg/dL Hemoglobin A1c (4.2-6.5) % Calcium (8.6-10.4) mg/dl Phosphorus (2.5-4.5) mg/dL Magnesium (1.6-2.3) mg/dL Total Bilirubin (0.2-1.3) mg/dL AST (17-59) U/L ALT (21-72) U/L Alkaline Phosphatase (38-126) U/L Total Protein (6.3-8.3) g/dL Albumin (3.5-5.0) g/dL Globulin (2.2-3.9) gm/dL Albumin/Globulin Ratio (1.0-2.1) Triglycerides (0-149) mg/dL Cholesterol (0-199) mg/dL LDL Cholesterol Direct (0-129) mg/dL HDL Cholesterol (30-70) mg/dL Amylase (30-110) U/L Lipase (23-300) U/L TSH 3rd Generation (0.46-4.68) mIU/L Alcohol, Quantitative (0-10) mg/dl 06/24/16 06/24/16 06/23/16 Range/Units 01:13 00:17 23:22 WBC (4.8-10.8) K/uL RBC (4.40-5.90) Mil/uL Hgb (12.0-18.0) g/dL Hct (35.0-51.0) % MCV (80.0-94.0) fL MCH (27.0-31.0) pg MCHC (33.0-37.0) g/dL RDW (11.5-14.5) % Plt Count (130-400) K/uL MPV (7.2-11.7) fL Neut % (Auto) (50.0-75.0) % Lymph % (Auto) (20.0-40.0) % [place] % (Auto) (0.0-10.0) % Eos % (Auto) (0.0-4.0) % Baso % (Auto) (0.0-2.0) % Neut # (1.8-7.0) K/uL Lymph # (1.0-4.3) K/uL [place] # (0.0-0.8) K/uL Eos # (0.0-0.7) K/uL Baso # (0.0-0.2) K/uL Sodium 137 (132-148) mmol/L Potassium 6.3 H* D (3.6-5.2) mmol/L Chloride 101 (98-107) mmol/L Carbon Dioxide < 5 L* D (22-30) mmol/L Anion Gap 37 H (10-20) BUN 22 H (9-20) mg/dL Creatinine 1.2 (0.8-1.5) MG/DL Est GFR ( Amer) > 60 Est GFR (Non-Af Amer) > 60 POC Glucose (mg/dL) 341 H 300 H (65-110) mg/dL Random Glucose 368 H (75-110) mg/dL Hemoglobin A1c (4.2-6.5) % Calcium 7.8 L (8.6-10.4) mg/dl Phosphorus 5.5 H (2.5-4.5) mg/dL Magnesium 1.9 (1.6-2.3) mg/dL Total Bilirubin 0.4 (0.2-1.3) mg/dL AST 15 L (17-59) U/L ALT 16 L D (21-72) U/L Alkaline Phosphatase 107 (38-126) U/L Total Protein 7.3 (6.3-8.3) g/dL Albumin 4.1 (3.5-5.0) g/dL Globulin 3.2 (2.2-3.9) gm/dL Albumin/Globulin Ratio 1.3 (1.0-2.1) Triglycerides (0-149) mg/dL Cholesterol (0-199) mg/dL LDL Cholesterol Direct (0-129) mg/dL HDL Cholesterol (30-70) mg/dL Amylase (30-110) U/L Lipase (23-300) U/L TSH 3rd Generation (0.46-4.68) mIU/L Alcohol, Quantitative (0-10) mg/dl 06/23/16 06/23/16 06/23/16 Range/Units 23:12 22:40 20:27 WBC (4.8-10.8) K/uL RBC (4.40-5.90) Mil/uL Hgb (12.0-18.0) g/dL Hct (35.0-51.0) % MCV (80.0-94.0) fL MCH (27.0-31.0) pg MCHC (33.0-37.0) g/dL RDW (11.5-14.5) % Plt Count (130-400) K/uL MPV (7.2-11.7) fL Neut % (Auto) (50.0-75.0) % Lymph % (Auto) (20.0-40.0) % [place] % (Auto) (0.0-10.0) % Eos % (Auto) (0.0-4.0) % Baso % (Auto) (0.0-2.0) % Neut # (1.8-7.0) K/uL Lymph # (1.0-4.3) K/uL [place] # (0.0-0.8) K/uL Eos # (0.0-0.7) K/uL Baso # (0.0-0.2) K/uL Sodium (132-148) mmol/L Potassium (3.6-5.2) mmol/L Chloride (98-107) mmol/L Carbon Dioxide (22-30) mmol/L Anion Gap (10-20) BUN (9-20) mg/dL Creatinine (0.8-1.5) MG/DL Est GFR ( Amer) Est GFR (Non-Af Amer) POC Glucose (mg/dL) 252 H 288 H 341 H (65-110) mg/dL Random Glucose (75-110) mg/dL Hemoglobin A1c (4.2-6.5) % Calcium (8.6-10.4) mg/dl Phosphorus (2.5-4.5) mg/dL Magnesium (1.6-2.3) mg/dL Total Bilirubin (0.2-1.3) mg/dL AST (17-59) U/L ALT (21-72) U/L Alkaline Phosphatase (38-126) U/L Total Protein (6.3-8.3) g/dL Albumin (3.5-5.0) g/dL Globulin (2.2-3.9) gm/dL Albumin/Globulin Ratio (1.0-2.1) Triglycerides (0-149) mg/dL Cholesterol (0-199) mg/dL LDL Cholesterol Direct (0-129) mg/dL HDL Cholesterol (30-70) mg/dL Amylase (30-110) U/L Lipase (23-300) U/L TSH 3rd Generation (0.46-4.68) mIU/L Alcohol, Quantitative (0-10) mg/dl Laboratory Results - last 24 hr 06/23/16 06/23/16 06/23/16 20:27 22:40 23:12 WBC RBC Hgb Hct MCV MCH MCHC RDW Plt Count MPV Neut % (Auto) Lymph % (Auto) [place] % (Auto) Eos % (Auto) Baso % (Auto) Neut # Lymph # [place] # Eos # Baso # Sodium Potassium Chloride Carbon Dioxide Anion Gap BUN Creatinine Est GFR ( Amer) Est GFR (Non-Af Amer) POC Glucose (mg/dL) 341 H 288 H 252 H Random Glucose Hemoglobin A1c Calcium Phosphorus Magnesium Total Bilirubin AST ALT Alkaline Phosphatase Total Protein Albumin Globulin Albumin/Globulin Ratio Triglycerides Cholesterol LDL Cholesterol Direct HDL Cholesterol Amylase Lipase TSH 3rd Generation Alcohol, Quantitative 06/23/16 06/24/16 06/24/16 23:22 00:17 01:13 WBC RBC Hgb Hct MCV MCH MCHC RDW Plt Count MPV Neut % (Auto) Lymph % (Auto) [place] % (Auto) Eos % (Auto) Baso % (Auto) Neut # Lymph # [place] # Eos # Baso # Sodium 137 Potassium 6.3 H* D Chloride 101 Carbon Dioxide < 5 L* D Anion Gap 37 H BUN 22 H Creatinine 1.2 Est GFR ( Amer) > 60 Est GFR (Non-Af Amer) > 60 POC Glucose (mg/dL) 300 H 341 H Random Glucose 368 H Hemoglobin A1c Calcium 7.8 L Phosphorus 5.5 H Magnesium 1.9 Total Bilirubin 0.4 AST 15 L ALT 16 L D Alkaline Phosphatase 107 Total Protein 7.3 Albumin 4.1 Globulin 3.2 Albumin/Globulin Ratio 1.3 Triglycerides Cholesterol LDL Cholesterol Direct HDL Cholesterol Amylase Lipase TSH 3rd Generation Alcohol, Quantitative 06/24/16 06/24/16 06/24/16 02:05 03:09 03:57 WBC RBC Hgb Hct MCV MCH MCHC RDW Plt Count MPV Neut % (Auto) Lymph % (Auto) [place] % (Auto) Eos % (Auto) Baso % (Auto) Neut # Lymph # [place] # Eos # Baso # Sodium Potassium Chloride Carbon Dioxide Anion Gap BUN Creatinine Est GFR ( Amer) Est GFR (Non-Af Amer) POC Glucose (mg/dL) 242 H 262 H 200 H Random Glucose Hemoglobin A1c Calcium Phosphorus Magnesium Total Bilirubin AST ALT Alkaline Phosphatase Total Protein Albumin Globulin Albumin/Globulin Ratio Triglycerides Cholesterol LDL Cholesterol Direct HDL Cholesterol Amylase Lipase TSH 3rd Generation Alcohol, Quantitative 06/24/16 06/24/16 06/24/16 05:13 06:20 06:21 WBC 14.2 H RBC 5.98 H Hgb 16.8 Hct 49.5 MCV 82.8 D MCH 28.0 MCHC 33.8 RDW 13.6 Plt Count 235 MPV 7.9 Neut % (Auto) 80.7 H Lymph % (Auto) 10.1 L [place] % (Auto) 8.8 Eos % (Auto) 0.0 Baso % (Auto) 0.4 Neut # 11.5 H Lymph # 1.4 [place] # 1.3 H Eos # 0.0 Baso # 0.1 Sodium 141 Potassium 5.7 H Chloride 105 Carbon Dioxide 11 L* D Anion Gap 31 H BUN 18 Creatinine 1.1 Est GFR ( Amer) > 60 Est GFR (Non-Af Amer) > 60 POC Glucose (mg/dL) 173 H 170 H Random Glucose 190 H Hemoglobin A1c 12.0 H Calcium 8.1 L Phosphorus 2.7 Magnesium 2.1 Total Bilirubin 0.7 AST 17 ALT 26 Alkaline Phosphatase 85 Total Protein 7.1 Albumin 3.7 Globulin 3.4 Albumin/Globulin Ratio 1.1 Triglycerides Cholesterol LDL Cholesterol Direct HDL Cholesterol Amylase 813 H Lipase 4423 H TSH 3rd Generation 1.02 Alcohol, Quantitative 06/24/16 06/24/16 06/24/16 07:08 08:20 09:20 WBC RBC Hgb Hct MCV MCH MCHC RDW Plt Count MPV Neut % (Auto) Lymph % (Auto) [place] % (Auto) Eos % (Auto) Baso % (Auto) Neut # Lymph # [place] # Eos # Baso # Sodium Potassium Chloride Carbon Dioxide Anion Gap BUN Creatinine Est GFR ( Amer) Est GFR (Non-Af Amer) POC Glucose (mg/dL) 198 H 189 H 205 H Random Glucose Hemoglobin A1c Calcium Phosphorus Magnesium Total Bilirubin AST ALT Alkaline Phosphatase Total Protein Albumin Globulin Albumin/Globulin Ratio Triglycerides Cholesterol LDL Cholesterol Direct HDL Cholesterol Amylase Lipase TSH 3rd Generation Alcohol, Quantitative 06/24/16 06/24/16 06/24/16 10:11 11:05 14:28 WBC RBC Hgb Hct MCV MCH MCHC RDW Plt Count MPV Neut % (Auto) Lymph % (Auto) [place] % (Auto) Eos % (Auto) Baso % (Auto) Neut # Lymph # [place] # Eos # Baso # Sodium Potassium Chloride Carbon Dioxide Anion Gap BUN Creatinine Est GFR ( Amer) Est GFR (Non-Af Amer) POC Glucose (mg/dL) 187 H 209 H 195 H Random Glucose Hemoglobin A1c Calcium Phosphorus Magnesium Total Bilirubin AST ALT Alkaline Phosphatase Total Protein Albumin Globulin Albumin/Globulin Ratio Triglycerides Cholesterol LDL Cholesterol Direct HDL Cholesterol Amylase Lipase TSH 3rd Generation Alcohol, Quantitative 06/24/16 06/24/16 06/24/16 14:40 16:04 17:19 WBC RBC Hgb Hct MCV MCH MCHC RDW Plt Count MPV Neut % (Auto) Lymph % (Auto) [place] % (Auto) Eos % (Auto) Baso % (Auto) Neut # Lymph # [place] # Eos # Baso # Sodium 136 Potassium 3.9 Chloride 106 Carbon Dioxide 13 L Anion Gap 21 H BUN 13 Creatinine 0.9 Est GFR ( Amer) > 60 Est GFR (Non-Af Amer) > 60 POC Glucose (mg/dL) 225 H 179 H Random Glucose 197 H Hemoglobin A1c Calcium 7.9 L Phosphorus 2.3 L Magnesium 1.8 Total Bilirubin 0.6 AST 20 ALT 23 Alkaline Phosphatase 75 Total Protein 6.3 Albumin 3.1 L Globulin 3.2 Albumin/Globulin Ratio 1.0 Triglycerides 122 Cholesterol 171 LDL Cholesterol Direct 110 HDL Cholesterol 39 Amylase Lipase 4940 H TSH 3rd Generation Alcohol, Quantitative < 10 Fingerstick Blood Sugar Results: 288 Review of Systems - Review of Systems Review of Systems: Documented as per subjective note. Critical Care Progress Note - Prophylaxis GI Prophylaxis GI: Pepsid - Prophylaxis DVT Prophylaxis DVT: Lovenox, SCDs - Nutrition Nutrition: Nutrition Category Date Time Status NPO Diet [DIET] Diets 06/24/16 Breakfast Active Assessment/Plan - Assessment and Plan (Free Text) Assessment: 46 M with past medical history of DM Type I ( diagnosed 10 years ago) who presented to the ED yesterday with shortness of breath, nausea, vomiting, and abdominal pain. Pt admitted to ICU for DKA and now suspected pancreatitis. Plan: Neuro: AAOx3 No neurologic deficit ETOH screen - negative Pulm: On n.c. O2sat 100% RR 22- stable 06/23/16 CXR: Diffuse increased interstitial markings suggestive for venous congestion and or interstitial infiltrates. Left hilar prominence. Biapical pleural thickening with upper lobe granulomatous changes. Cardio: Hx of HTN, Normotensive at this time 06/24/16 ECG: Sinus tachycardia, T wave abnormality, consider inferior ischemia. Troponin I: <0.0120 Monitor Heme: WBC 14.2 (06/24/16) H/H: 16.8/49.5 (06/24/16) Plt 235 (06/24/16) GI: Acute pancreatitis, likely DKA associated 06/24/16 AM: Amylase 813, Lipase 4423 06/24/16 PM: Lipase 4940 (elevated) f/u pancreatic enzymes 06/24/16 CT abdomen/pelvis - Peripancreatic inflammatory stranding, peripancreatic adenopathy, and mild pancreatic edema consistent with acute pancreatitis.Small hiatal hernia/distal esophageal wall thickening and evidence of gastroesophageal reflux. Recommend further evaluation with endoscopy given prominent distal esophageal wall thickening of unclear significance. 06/24/16 U/S abdomen - Diffuse increased echogenicity in the liver may reflect hepatic steatosis, however, parenchymal infections/inflammatory etiologies cannot be entirely excluded. Clinical and laboratory correlation is advised. No evidence of chlelithiasis or biliary dilatation. Abdominal pain - resolving Lipid panel - WNL GI Consulted (Dr. Owen Xiao) - help appreciated NPO, Continue IVF Endo: DKA Insulin drip IVF D5NS IV @175cc/hr Sodium Chloride IV Zofran 4mg IVP Q6h Hgb A1c 12.0, FBS 187 (06/24/16 10:00) Accuchecks Q1h Nephro: BUN/Cr: 18/1.1 Ca2+ 8.1 Hyperkalemia resolved (5.7 >> 3.9) Monitor electrolytes, replenish as needed Phos - repleted ID: WBC 14.2 Blood, urine, MRSA cultures - pending : UA (06/23/16): protein 1+, Glu 3+, Ketones 2+, Blood 1+, Leuk esterase - UDS pending Monitor Prophylaxis: DVT ppx: Lovenox 40mg subq daily, SCDs GI ppx: Pepcid 20mg IV Q12h
--- NOTE | 2016-06-24 19:08 | CP.PCM.CON ---
History of Present Illness - History of Present Illness History of Present Illness: Reason for consult: pancreatitis, esophagitis on CT CC: abdominal pain, nausea/vomiting HPI: This is a 46 year old male with history of hypertension (not on medications), type 1 diabetes mellitus who is admitted with epigastric abdominal pain associated with nausea/vomiting. The patient states that he was in his usual state of health until yesterday morning, when he developed sudden onset sharp abdominal pain associated with multiple episodes of non bloody/non bilious emesis. No change in bowel habits. He denies diarrhea or constipation. No rectal bleeding/melena/hematemesis. No chronic acid reflux/heartburn. He was found to have DKA and admitted to ICU for further management/treatment. He was noted to have elevated lipase with CT scan today showing pancreatitis and distal esophageal wall thickening. The patient denies any prior history of pancreatitis. He denies ETOH. Abdominal sonogram/CT were negative for gallstones. There is a reported FH of pancreatic cancer. PMHx/PSHx: as above Medications: insulin Allergies: NKDA ROS: as per above, otherwise 12 point negative in detail FH: pancreatic cancer, mother with esophagitis SH: denies tobacco, ETOH or illicit drug use Review of Systems - Constitutional Constitutional: absent: Chills, Fever - Cardiovascular Cardiovascular: absent: Chest Pain - Respiratory Respiratory: absent: Cough, Dyspnea - Gastrointestinal Gastrointestinal: As Per HPI - Genitourinary Genitourinary: Urinary Frequency. absent: Dysuria - Musculoskeletal Musculoskeletal: absent: Back Pain, Numbness - Neurological Neurological: absent: Weakness - Psychiatric Psychiatric: absent: Anxiety, Depression Past Patient History - Past Medical History & Family History Past Medical History?: Yes - Past Social History Smoking Status: Never Smoked - CARDIAC Hx Cardiac Disorders: Yes Hx Hypertension: Yes - PULMONARY Hx Respiratory Disorders: No - NEUROLOGICAL Hx Neurological Disorder: No - HEENT Hx HEENT Problems: No - RENAL Hx Chronic Kidney Disease: No - ENDOCRINE/METABOLIC Hx Endocrine Disorders: Yes Hx Diabetes Mellitus Type 1: Yes - HEMATOLOGICAL/ONCOLOGICAL Hx Blood Disorders: No - INTEGUMENTARY Hx Dermatological Problems: No - MUSCULOSKELETAL/RHEUMATOLOGICAL Hx Musculoskeletal Disorders: No Hx Falls: No - GASTROINTESTINAL Hx Gastrointestinal Disorders: No - GENITOURINARY/GYNECOLOGICAL Hx Genitourinary Disorders: No - PSYCHIATRIC Hx Psychophysiologic Disorder: No Hx Substance Use: No - SURGICAL HISTORY Hx Surgeries: No - ANESTHESIA Hx Anesthesia: No Meds Allergies/Adverse Reactions: Allergies Allergy/AdvReac Type Severity Reaction Status Date / Time No Known Allergies Allergy Verified 06/23/16 18:52 - Medications Medications: Current Medications Acetaminophen (Tylenol 325mg Tab) 650 mg PO Q6 PRN PRN Reason: Headache Enoxaparin Sodium (Lovenox) 40 mg SC DAILY [facility] Last Admin: 06/24/16 10:44 Dose: 40 mg Famotidine (Pepcid) 20 mg PO Q12 [facility] Last Admin: 06/24/16 10:44 Dose: 20 mg Insulin Human Regular 100 unit (/ Sodium Chloride) 100 mls @ 4 mls/hr IV .Q24H [facility] PRN Reason: Protocol Last Titration: 06/24/16 05:15 Dose: 2 units/hr Dextrose/Sodium Chloride (Dextrose 5%/0.9% Ns 1000 Ml) 1,000 mls @ 175 mls/hr IV .Q5H43M [facility] Last Admin: 06/24/16 15:10 Dose: 175 mls/hr Sodium Chloride (Sodium Chloride 0.9%) 1,000 mls @ 50 mls/hr IV .Q20H [facility] Last Admin: 06/24/16 07:30 Dose: 50 mls/hr Potassium Phosphate 15 mmole/ (Sodium Chloride) 255 mls @ 42.5 mls/hr IVPB ONCE ONE Stop: 06/24/16 23:29 Last Admin: 06/24/16 17:51 Dose: 42.5 mls/hr Morphine Sulfate (Morphine) 2 mg IVP Q4H PRN PRN Reason: Pain, moderate (4-7) Ondansetron HCl (Zofran Inj) 4 mg IVP Q6H PRN PRN Reason: Nausea/Vomiting Physical Exam - Constitutional Appears: No Acute Distress - Eye Exam Eye Exam: absent: Scleral icterus - ENT Exam ENT Exam: Mucous Membranes Moist - Respiratory Exam Respiratory Exam: Clear to Auscultation Bilateral - Cardiovascular Exam Cardiovascular Exam: +S1, +S2 - GI/Abdominal Exam Additional comments: abdomen soft, non tender to palpation, no rebound or guarding, bowel sounds present, no palpable mass - Extremities Exam Extremities exam: Negative for: pedal edema - Neurological Exam Neurological exam: Alert, Oriented x3 - Skin Skin Exam: Dry, Intact Results - Vital Signs Recent Vital Signs: Last Vital Signs Temp 99.1 F 06/24/16 12:00 Pulse 100 H 06/24/16 15:31 Resp 33 H 06/24/16 15:31 BP 133/89 06/24/16 15:31 Pulse Ox 100 06/24/16 15:31 - Labs Result Diagrams: 06/24/16 06:20 06/24/16 14:40 Labs: Laboratory Results - last 24 hr 06/23/16 06/23/16 06/23/16 20:27 22:40 23:12 WBC RBC Hgb Hct MCV MCH MCHC RDW Plt Count MPV Neut % (Auto) Lymph % (Auto) [place] % (Auto) Eos % (Auto) Baso % (Auto) Neut # Lymph # [place] # Eos # Baso # Sodium Potassium Chloride Carbon Dioxide Anion Gap BUN Creatinine Est GFR ( Amer) Est GFR (Non-Af Amer) POC Glucose (mg/dL) 341 H 288 H 252 H Random Glucose Hemoglobin A1c Calcium Phosphorus Magnesium Total Bilirubin AST ALT Alkaline Phosphatase Total Protein Albumin Globulin Albumin/Globulin Ratio Triglycerides Cholesterol LDL Cholesterol Direct HDL Cholesterol Amylase Lipase TSH 3rd Generation Alcohol, Quantitative 06/23/16 06/24/16 06/24/16 23:22 00:17 01:13 WBC RBC Hgb Hct MCV MCH MCHC RDW Plt Count MPV Neut % (Auto) Lymph % (Auto) [place] % (Auto) Eos % (Auto) Baso % (Auto) Neut # Lymph # [place] # Eos # Baso # Sodium 137 Potassium 6.3 H* D Chloride 101 Carbon Dioxide < 5 L* D Anion Gap 37 H BUN 22 H Creatinine 1.2 Est GFR ( Amer) > 60 Est GFR (Non-Af Amer) > 60 POC Glucose (mg/dL) 300 H 341 H Random Glucose 368 H Hemoglobin A1c Calcium 7.8 L Phosphorus 5.5 H Magnesium 1.9 Total Bilirubin 0.4 AST 15 L ALT 16 L D Alkaline Phosphatase 107 Total Protein 7.3 Albumin 4.1 Globulin 3.2 Albumin/Globulin Ratio 1.3 Triglycerides Cholesterol LDL Cholesterol Direct HDL Cholesterol Amylase Lipase TSH 3rd Generation Alcohol, Quantitative 06/24/16 06/24/16 06/24/16 02:05 03:09 03:57 WBC RBC Hgb Hct MCV MCH MCHC RDW Plt Count MPV Neut % (Auto) Lymph % (Auto) [place] % (Auto) Eos % (Auto) Baso % (Auto) Neut # Lymph # [place] # Eos # Baso # Sodium Potassium Chloride Carbon Dioxide Anion Gap BUN Creatinine Est GFR ( Amer) Est GFR (Non-Af Amer) POC Glucose (mg/dL) 242 H 262 H 200 H Random Glucose Hemoglobin A1c Calcium Phosphorus Magnesium Total Bilirubin AST ALT Alkaline Phosphatase Total Protein Albumin Globulin Albumin/Globulin Ratio Triglycerides Cholesterol LDL Cholesterol Direct HDL Cholesterol Amylase Lipase TSH 3rd Generation Alcohol, Quantitative 06/24/16 06/24/16 06/24/16 05:13 06:20 06:21 WBC 14.2 H RBC 5.98 H Hgb 16.8 Hct 49.5 MCV 82.8 D MCH 28.0 MCHC 33.8 RDW 13.6 Plt Count 235 MPV 7.9 Neut % (Auto) 80.7 H Lymph % (Auto) 10.1 L [place] % (Auto) 8.8 Eos % (Auto) 0.0 Baso % (Auto) 0.4 Neut # 11.5 H Lymph # 1.4 [place] # 1.3 H Eos # 0.0 Baso # 0.1 Sodium 141 Potassium 5.7 H Chloride 105 Carbon Dioxide 11 L* D Anion Gap 31 H BUN 18 Creatinine 1.1 Est GFR ( Amer) > 60 Est GFR (Non-Af Amer) > 60 POC Glucose (mg/dL) 173 H 170 H Random Glucose 190 H Hemoglobin A1c 12.0 H Calcium 8.1 L Phosphorus 2.7 Magnesium 2.1 Total Bilirubin 0.7 AST 17 ALT 26 Alkaline Phosphatase 85 Total Protein 7.1 Albumin 3.7 Globulin 3.4 Albumin/Globulin Ratio 1.1 Triglycerides Cholesterol LDL Cholesterol Direct HDL Cholesterol Amylase 813 H Lipase 4423 H TSH 3rd Generation 1.02 Alcohol, Quantitative 06/24/16 06/24/16 06/24/16 07:08 08:20 09:20 WBC RBC Hgb Hct MCV MCH MCHC RDW Plt Count MPV Neut % (Auto) Lymph % (Auto) [place] % (Auto) Eos % (Auto) Baso % (Auto) Neut # Lymph # [place] # Eos # Baso # Sodium Potassium Chloride Carbon Dioxide Anion Gap BUN Creatinine Est GFR ( Amer) Est GFR (Non-Af Amer) POC Glucose (mg/dL) 198 H 189 H 205 H Random Glucose Hemoglobin A1c Calcium Phosphorus Magnesium Total Bilirubin AST ALT Alkaline Phosphatase Total Protein Albumin Globulin Albumin/Globulin Ratio Triglycerides Cholesterol LDL Cholesterol Direct HDL Cholesterol Amylase Lipase TSH 3rd Generation Alcohol, Quantitative 06/24/16 06/24/16 06/24/16 10:11 11:05 14:28 WBC RBC Hgb Hct MCV MCH MCHC RDW Plt Count MPV Neut % (Auto) Lymph % (Auto) [place] % (Auto) Eos % (Auto) Baso % (Auto) Neut # Lymph # [place] # Eos # Baso # Sodium Potassium Chloride Carbon Dioxide Anion Gap BUN Creatinine Est GFR ( Amer) Est GFR (Non-Af Amer) POC Glucose (mg/dL) 187 H 209 H 195 H Random Glucose Hemoglobin A1c Calcium Phosphorus Magnesium Total Bilirubin AST ALT Alkaline Phosphatase Total Protein Albumin Globulin Albumin/Globulin Ratio Triglycerides Cholesterol LDL Cholesterol Direct HDL Cholesterol Amylase Lipase TSH 3rd Generation Alcohol, Quantitative 06/24/16 06/24/16 06/24/16 14:40 16:04 17:19 WBC RBC Hgb Hct MCV MCH MCHC RDW Plt Count MPV Neut % (Auto) Lymph % (Auto) [place] % (Auto) Eos % (Auto) Baso % (Auto) Neut # Lymph # [place] # Eos # Baso # Sodium 136 Potassium 3.9 Chloride 106 Carbon Dioxide 13 L Anion Gap 21 H BUN 13 Creatinine 0.9 Est GFR ( Amer) > 60 Est GFR (Non-Af Amer) > 60 POC Glucose (mg/dL) 225 H 179 H Random Glucose 197 H Hemoglobin A1c Calcium 7.9 L Phosphorus 2.3 L Magnesium 1.8 Total Bilirubin 0.6 AST 20 ALT 23 Alkaline Phosphatase 75 Total Protein 6.3 Albumin 3.1 L Globulin 3.2 Albumin/Globulin Ratio 1.0 Triglycerides 122 Cholesterol 171 LDL Cholesterol Direct 110 HDL Cholesterol 39 Amylase Lipase 4940 H TSH 3rd Generation Alcohol, Quantitative < 10 06/24/16 18:02 WBC RBC Hgb Hct MCV MCH MCHC RDW Plt Count MPV Neut % (Auto) Lymph % (Auto) [place] % (Auto) Eos % (Auto) Baso % (Auto) Neut # Lymph # [place] # Eos # Baso # Sodium Potassium Chloride Carbon Dioxide Anion Gap BUN Creatinine Est GFR ( Amer) Est GFR (Non-Af Amer) POC Glucose (mg/dL) 223 H Random Glucose Hemoglobin A1c Calcium Phosphorus Magnesium Total Bilirubin AST ALT Alkaline Phosphatase Total Protein Albumin Globulin Albumin/Globulin Ratio Triglycerides Cholesterol LDL Cholesterol Direct HDL Cholesterol Amylase Lipase TSH 3rd Generation Alcohol, Quantitative Assessment & Plan - Assessment and Plan (Free Text) Assessment: This is a 46 year old male with history of type I diabetes who is admitted with abdominal pain, nausea/vomiting secondary to diabetic ketoacidosis and acute pancreatitis. Admission BISAP 1-2 (BUN now improved with fluid hydration). Abdominal pain overall improved. No antecedent history of ETOH, no gallstones on imaging and TG are within normal limits. CT a/p shows distal esophageal wall thickening, possibly esophagitis in setting of vomiting. Plan: Continue management of DKA as per intensive care unit, currently on insulin gtt Continue IVF hydration Pain control, antiemetic therapy as needed Monitor BUN/electrolytes Initiate liquid diet as tolerated once pain improved and ok from ICU perspective re: DKA Continue supportive care He would ultimately benefit from EGD evaluation of esophageal wall thickening, which can be arranged non emergently after resolution of acute medical issues Will continue to follow and make recommendations depending on clinical course
[2016-06-24] MEDS: Insulin Human Regular 100 UNIT in Sodium Chloride 0.9% 99 ML IV SCH (20:09)
[2016-06-24] MEDS ORDERED: (Lantus) Insulin Glargine, Recombinant SC ONE ×2 (20:13→21:30)
[2016-06-24 22:56] LABS: CHLORIDE 106 mmol/L (98-107)
[2016-06-24 22:57] LABS: POTASSIUM 3.4 mmol/L (3.6-5.2); SODIUM 134 mmol/L (132-148)
[2016-06-24 22:59] LABS: ALB/GLOB RATIO 1.1 (1.0-2.1); ALKALINE PHOSPHATASE 64 U/L (38-126); ALT/SGPT 17 U/L (21-72); AST/SGOT 18 U/L (17-59); BILIRUBIN,TOTAL 0.5 mg/dL (0.2-1.3); BLOOD UREA NITROGEN 9 mg/dL (9-20); CALCIUM 7.7 mg/dl (8.6-10.4); GFR AFRICAN-AMERICAN > 60; GLUCOSE,RANDOM 208 mg/dL (75-110); TOTAL PROTEIN 5.4 g/dL (6.3-8.3)
[2016-06-24 23:01] LABS: CARBON DIOXIDE 11 mmol/L (22-30)
[2016-06-24] MEDS ORDERED: Dextrose 5%/0.9% NS 1,000 ML IV SCH (23:40)
[2016-06-24] MEDS ORDERED: Potassium Chloride 20 mEq ER Tab PO STA (23:57)
[2016-06-25 06:18] LABS: BASO # 0.1 K/uL (0.0-0.2); BASO % 0.8 % (0.0-2.0); EOS % 0.6 % (0.0-4.0); HEMATOCRIT 41.2 % (35.0-51.0); LYMPH # 1.7 K/uL (1.0-4.3); LYMPH % 23.3 % (20.0-40.0); MEAN CELL VOLUME 81.7 fL (80.0-94.0); MEAN CORPUSCULAR HEMOGLOBIN 27.6 pg (27.0-31.0); MEAN CORPUSCULAR HGB CONC 33.8 g/dL (33.0-37.0); MEAN PLATELET VOLUME 7.7 fL (7.2-11.7); MONO # 0.6 K/uL (0.0-0.8); MONO % 8.4 % (0.0-10.0); NRBC % 0.1 % (0.0-2.0); RED CELL DISTRIBUTION WIDTH 14.1 % (11.5-14.5); WHITE BLOOD COUNT 7.2 K/uL (4.8-10.8)
[2016-06-25 06:33] LABS: CHLORIDE 108 mmol/L (98-107)
[2016-06-25 06:34] LABS: POTASSIUM 3.6 mmol/L (3.6-5.2); SODIUM 137 mmol/L (132-148)
[2016-06-25 06:36] LABS: AST/SGOT 15 U/L (17-59); BILIRUBIN,TOTAL 0.5 mg/dL (0.2-1.3); CARBON DIOXIDE 13 mmol/L (22-30); GFR AFRICAN-AMERICAN > 60
[2016-06-25 06:37] LABS: ALKALINE PHOSPHATASE 62 U/L (38-126); ALT/SGPT 17 U/L (21-72); BLOOD UREA NITROGEN 8 mg/dL (9-20); CALCIUM 7.8 mg/dl (8.6-10.4); GLUCOSE,RANDOM 184 mg/dL (75-110); MAGNESIUM 1.7 mg/dL (1.6-2.3); TOTAL PROTEIN 5.3 g/dL (6.3-8.3)
[2016-06-25] MEDS: Potassium Chl 40 mEq in D5-1/2 1,000 ML IV SCH ×2 (08:18→15:38)
[2016-06-25] MEDS: Enoxaparin 40 mg Syringe SC SCH (09:20)
--- NOTE | 2016-06-25 09:40 | CP.PCM.PN ---
Subjective - Date & Time of Evaluation Date of Evaluation: 06/25/16 Time of Evaluation: 09:35 - Subjective Subjective: Medical Attending Note: Follow-ip: DKA, Acute pancreatitis, Abdominal pain, abnormal UA Patient seen and examined at bedside. Patient denies acute complaints. Patient feels restless. Patient urinating well. Objective - Vital Signs/Intake and Output Vital Signs (last 24 hours): Temp Pulse Resp BP Pulse Ox 97.5 F L 84 25 H 114/63 98 06/25/16 08:00 06/25/16 09:01 06/25/16 09:01 06/25/16 09:01 06/25/16 09:01 Intake and Output: 06/25/16 06/25/16 06:59 18:59 Intake Total 2339.5 430 Output Total 800 500 Balance 1539.5 -70 - Medications Medications: Current Medications Acetaminophen (Tylenol 325mg Tab) 650 mg PO Q6 PRN PRN Reason: Headache Enoxaparin Sodium (Lovenox) 40 mg SC DAILY [facility] Last Admin: 06/25/16 09:20 Dose: 40 mg Famotidine (Pepcid) 20 mg PO Q12 [facility] Last Admin: 06/25/16 09:20 Dose: 20 mg Insulin Human Regular 100 unit (/ Sodium Chloride) 100 mls @ 4 mls/hr IV .Q24H [facility] PRN Reason: Protocol Last Titration: 06/25/16 09:17 Dose: 2 units/hr Potassium Chloride/Dextrose/Sod Cl (Potassium Chl 40 Meq In D5-1/2ns) 1,000 mls @ 150 mls/hr IV .Q6H40M [facility] Last Admin: 06/25/16 08:18 Dose: 150 mls/hr Morphine Sulfate (Morphine) 2 mg IVP Q4H PRN PRN Reason: Pain, moderate (4-7) Ondansetron HCl (Zofran Inj) 4 mg IVP Q6H PRN PRN Reason: Nausea/Vomiting - Labs Labs: 06/25/16 06:08 06/25/16 06:08 - Constitutional Appears: Non-toxic, No Acute Distress - Head Exam Head Exam: NORMAL INSPECTION - Eye Exam Eye Exam: EOMI - ENT Exam ENT Exam: Mucous Membranes Moist - Respiratory Exam Respiratory Exam: Clear to Ausculation Bilateral, NORMAL BREATHING PATTERN. absent: Rales, Rhonchi, Wheezes - Cardiovascular Exam Cardiovascular Exam: REGULAR RHYTHM, +S1, +S2 - GI/Abdominal Exam GI & Abdominal Exam: Soft, Normal Bowel Sounds. absent: Distended, Firm, Guarding, Rigid, Tenderness, Rebound - Extremities Exam Extremities Exam: absent: Pedal Edema, Tenderness - Neurological Exam Neurological Exam: Alert, Awake, Oriented x3 - Psychiatric Exam Psychiatric exam: Normal Affect, Normal Mood - Skin Skin Exam: Dry, Normal Color, Warm Assessment and Plan (1) DKA (diabetic ketoacidosis) Assessment & Plan: D51/2NS 40 KCL meq Insulin drip anion gap closed CO2 low but improving a1c: 12 Accuchecks Q 6 hours NPO Status: Acute (2) Acute pancreatitis Assessment & Plan: Ct abdomen (06/25/16): peripancreatic inflammatory stranding, peripancreatic adenopathy, and mild pancreatic edema consistent with acute pancreatitis. Small hiatal hernia/distal esophageal wall thicking and evidence of gastroesophageal reflux. Recommend further evaluation with endoscopy given prominent distal esophageal wall thickening of unclear significance. Ab US (06/25/16): diffuse increased echogenicity in the liver may reflex hepatic statosis however, parenchymal infectious/inflammaotyr etiology ecannot be entireley ecluded. No evidence of cholelithiasis or biliary dilatation. Gi (Dr. Xiao): on board Per GI note: Continue management of DKA as per intensive care unit, currently on insulin gtt Continue IVF hydration Pain control, antiemetic therapy as needed Monitor BUN/electrolytes Initiate liquid diet as tolerated once pain improved and ok from ICU perspective re: DKA Continue supportive care He would ultimately benefit from EGD evaluation of esophageal wall thickening, which can be arranged non emergently after resolution of acute medical issues Will continue to follow and make recommendations depending on clinical course Status: Acute (3) Abdominal pain Assessment & Plan: resolved Status: Acute (4) Abnormal urinalysis Assessment & Plan: repeat UA Status: Acute (5) Prophylactic measure Assessment & Plan: Pepcid 20mg IV Q 12hours for GI ppx Lovenox 40mg subq for DVT ppx Status: Acute
[2016-06-25] MEDS ORDERED: Potassium Chloride 20 mEq ER Tab PO SCH (10:00)
[2016-06-25 10:52] LABS: CHLORIDE 104 mmol/L (98-107); SODIUM 134 mmol/L (132-148)
[2016-06-25 10:53] LABS: POTASSIUM 3.6 mmol/L (3.6-5.2)
[2016-06-25 10:55] LABS: AMYLASE 355 U/L (30-110); AST/SGOT 17 U/L (17-59); BILIRUBIN,TOTAL 0.7 mg/dL (0.2-1.3); BLOOD UREA NITROGEN 7 mg/dL (9-20); CARBON DIOXIDE 12 mmol/L (22-30); GFR AFRICAN-AMERICAN > 60; GLUCOSE,RANDOM 220 mg/dL (75-110); TOTAL PROTEIN 5.6 g/dL (6.3-8.3)
[2016-06-25 10:56] LABS: ALKALINE PHOSPHATASE 68 U/L (38-126); ALT/SGPT 20 U/L (21-72); CALCIUM 7.9 mg/dl (8.6-10.4); RBC URINE < 1 /hpf (0-3); URINE BILIRUBIN NEGATIVE (NEGATIVE); URINE BLOOD NEGATIVE (NEGATIVE); URINE COLOR Yellow (YELLOW); URINE GLUCOSE (UA) 3+ mg/dL (Normal); URINE KETONE 2+ mg/dL (NEGATIVE); URINE LEUKOCYTE ESTERASE NEG Leu/uL (Negative); URINE PROTEIN NEGATIVE (NEGATIVE); URINE UROBILINOGEN NORMAL mg/dL (0.2-1.0); WBC URINE < 1 /hpf (0-5)
--- NOTE | 2016-06-25 13:11 | CARD ---
APPROVED REPORT EKG Measurement Heart [id number] <Conclusion> Sinus tachycardia T wave abnormality, consider inferior ischemia Abnormal ECG
[2016-06-25 14:29] LABS: CHLORIDE 105 mmol/L (98-107); POTASSIUM 3.4 mmol/L (3.6-5.2); SODIUM 134 mmol/L (132-148)
[2016-06-25 14:32] LABS: GFR AFRICAN-AMERICAN > 60
[2016-06-25 14:33] LABS: BLOOD UREA NITROGEN 7 mg/dL (9-20); CARBON DIOXIDE 17 mmol/L (22-30); GLUCOSE,RANDOM 176 mg/dL (75-110)
--- NOTE | 2016-06-25 14:51 | CP.CCUPN ---
<Debbie German - Last Filed: 06/25/16 15:00> CCU Subjective - Physician Review Subjective (Free Text): 06/24/16 17:54 Patient seen and examined at bedside. No additional acute events overnight per nursing. Pt states his abdominal pain has resolved and he is feeling better. Patient urinating without problems. Patient denies chest pain, shortness of breath, nausea, vomiting, diarrhea, headaches, paresthesias, abdominal pain at this time. 06/25/16 14:50 Patient seen and examined in no acute distress. No events overnight per nursing. Pt inquired about his medical course thus far which was explained to him. Patient states that he would like to eat. He is urinating without complaints. He denies headaches, subjective fevers or chills, nausea, vomiting, diarrhea, chest pain, abdominal pain at this point. 06/25/16 14:54 Critical Care Time Spent (in minutes): 35 CCU Objective - Vital Signs / Intake & Output Vital Signs (Last 4 hours): Vital Signs Pulse Resp BP Pulse Ox 06/25/16 14:01 92 H 125/59 L 98 06/25/16 14:00 88 98 06/25/16 13:01 85 28 H 114/64 99 06/25/16 13:00 85 14 98 06/25/16 12:25 85 23 100 06/25/16 12:01 88 29 H 123/69 98 06/25/16 12:00 90 13 99 06/25/16 11:27 88 29 H 99 06/25/16 11:01 84 31 H 129/77 99 06/25/16 11:00 90 33 H 99 Intake and Output (Last 8hrs): Intake & Output 06/24/16 06/25/16 06/25/16 22:59 06:59 14:59 Intake Total 1983.5 1268 1049 Output Total 5307 594 0115 Balance 783.5 868 -251 Intake: Intake, IV Amount 1833.5 1118 1049 Right Antecubital 21 18 24 Left Antecubital 1225 1050 1025 Left Hand 350 50 Right Antecubital 175 Left Hand 62.5 Oral 150 150 Output: Urine 7074 102 0145 Urine, Voided 8894 980 7566 - Physical Exam Head: Positive for: Atraumatic, Normocephalic Pupils: Positive for: PERRL Extroacular Muscles: Positive for: EOMI Conjunctiva: Positive for: Normal Mouth: Positive for: Moist Mucous Membranes Nose (External): Negative for: Atraumatic, Abrasion Nose (Internal): Positive for: Normal Inspection Neck: Positive for: Normal Range of Motion Respiratory/Chest: Positive for: Clear to Auscultation. Negative for: Wheezes Cardiovascular: Positive for: Regular Rate and Rhythm, Normal S1, S2 Abdomen: Positive for: Normal Bowel Sounds. Negative for: Tenderness, Peritoneal Signs, McBurney's Point Tender, Rovsing's Sign Present Back: Positive for: Normal Inspection Upper Extremity: Positive for: Normal Inspection, Normal ROM. Negative for: Edema Lower Extremity: Positive for: Normal Inspection. Negative for: CALF TENDERNESS Neurological: Positive for: CN II-XII Intact, Speech Normal, Normal Sensory Function Skin: Positive for: Warm, Dry, Normal Color Psychiatric: Positive for: Alert, Oriented x 3, Normal Insight, Normal Concentration, Normal Affect, Normal Mood - Medications Active Medications: Active Medications Generic Name Dose Route Start Last Admin Trade Name Freq PRN Reason Stop Dose Admin Acetaminophen 650 mg 06/23/16 20:21 Tylenol 325mg Tab PO Q6 PRN Headache Enoxaparin Sodium 40 mg 06/24/16 10:00 06/25/16 09:20 Lovenox SC 40 mg DAILY KIM Administration Famotidine 20 mg 06/23/16 22:00 06/25/16 09:20 Pepcid PO 20 mg Q12 KIM Administration Insulin Human Regular 100 unit 100 mls @ 4 mls/hr 06/23/16 19:30 06/25/16 11:25 / Sodium Chloride IV 3 units/hr .Q24H KIM Titration Protocol Potassium Chloride/Dextrose/Sod Cl 1,000 mls @ 150 mls/hr 06/25/16 07:45 08:18 Potassium Chl 40 Meq In D5-1/2ns IV 150 mls/hr .Q6H40M KIM Administration Morphine Sulfate 2 mg 06/23/16 20:09 Morphine IVP Q4H PRN Pain, moderate (4-7) Ondansetron HCl 4 mg 06/23/16 20:09 Zofran Inj IVP Q6H PRN Nausea/Vomiting - Patient Studies Lab Studies: Microbiology Studies 06/23/16 Unknown Urine Culture - Final Urine No Growth (<1,000 CFU/ML) 06/23/16 Unknown MRSA Culture (Admit) - Final Naris MRSA NOT DETECTED Lab Studies 06/25/16 06/25/16 06/25/16 Range/Units 14:11 14:07 13:09 WBC (4.8-10.8) K/uL RBC (4.40-5.90) Mil/uL Hgb (12.0-18.0) g/dL Hct (35.0-51.0) % MCV (80.0-94.0) fL MCH (27.0-31.0) pg MCHC (33.0-37.0) g/dL RDW (11.5-14.5) % Plt Count (130-400) K/uL MPV (7.2-11.7) fL Neut % (Auto) (50.0-75.0) % Lymph % (Auto) (20.0-40.0) % Becker % (Auto) (0.0-10.0) % Eos % (Auto) (0.0-4.0) % Baso % (Auto) (0.0-2.0) % Neut # (1.8-7.0) K/uL Lymph # (1.0-4.3) K/uL Becker # (0.0-0.8) K/uL Eos # (0.0-0.7) K/uL Baso # (0.0-0.2) K/uL Sodium 134 (132-148) mmol/L Potassium 3.4 L (3.6-5.2) mmol/L Chloride 105 (98-107) mmol/L Carbon Dioxide 17 L (22-30) mmol/L Anion Gap 15 (10-20) BUN 7 L (9-20) mg/dL Creatinine 0.6 L (0.8-1.5) MG/DL Est GFR ( Amer) > 60 Est GFR (Non-Af Amer) > 60 POC Glucose (mg/dL) 184 H 203 H (65-110) mg/dL Random Glucose 176 H (75-110) mg/dL Calcium 8.0 L (8.6-10.4) mg/dl Phosphorus (2.5-4.5) mg/dL Magnesium (1.6-2.3) mg/dL Total Bilirubin (0.2-1.3) mg/dL AST (17-59) U/L ALT (21-72) U/L Alkaline Phosphatase (38-126) U/L Total Protein (6.3-8.3) g/dL Albumin (3.5-5.0) g/dL Globulin (2.2-3.9) gm/dL Albumin/Globulin Ratio (1.0-2.1) Triglycerides (0-149) mg/dL Cholesterol (0-199) mg/dL LDL Cholesterol Direct (0-129) mg/dL HDL Cholesterol (30-70) mg/dL Amylase (30-110) U/L Lipase (23-300) U/L Urine Color (YELLOW) Urine Clarity (Clear) Urine pH (5.0-8.0) Ur Specific [place] (1.003-1.030) Urine Protein (NEGATIVE) mg/dL Urine Glucose (UA) (Normal) mg/dL Urine Ketones (NEGATIVE) mg/dL Urine Blood (NEGATIVE) Urine Nitrate (NEGATIVE) Urine Bilirubin (NEGATIVE) Urine Urobilinogen (0.2-1.0) mg/dL Ur Leukocyte Esterase (Negative) [place]/uL Urine WBC (Auto) (0-5) /hpf Urine RBC (Auto) (0-3) /hpf Alcohol, Quantitative (0-10) mg/dl Serum Ketones (NEGATIVE) 06/25/16 06/25/16 06/25/16 Range/Units 12:07 11:12 10:33 WBC (4.8-10.8) K/uL RBC (4.40-5.90) Mil/uL Hgb (12.0-18.0) g/dL Hct (35.0-51.0) % MCV (80.0-94.0) fL MCH (27.0-31.0) pg MCHC (33.0-37.0) g/dL RDW (11.5-14.5) % Plt Count (130-400) K/uL MPV (7.2-11.7) fL Neut % (Auto) (50.0-75.0) % Lymph % (Auto) (20.0-40.0) % Becker % (Auto) (0.0-10.0) % Eos % (Auto) (0.0-4.0) % Baso % (Auto) (0.0-2.0) % Neut # (1.8-7.0) K/uL Lymph # (1.0-4.3) K/uL Becker # (0.0-0.8) K/uL Eos # (0.0-0.7) K/uL Baso # (0.0-0.2) K/uL Sodium 134 (132-148) mmol/L Potassium 3.6 (3.6-5.2) mmol/L Chloride 104 (98-107) mmol/L Carbon Dioxide 12 L (22-30) mmol/L Anion Gap 22 H (10-20) BUN 7 L (9-20) mg/dL Creatinine 0.7 L (0.8-1.5) MG/DL Est GFR ( Amer) > 60 Est GFR (Non-Af Amer) > 60 POC Glucose (mg/dL) 232 H 249 H (65-110) mg/dL Random Glucose 220 H (75-110) mg/dL Calcium 7.9 L (8.6-10.4) mg/dl Phosphorus (2.5-4.5) mg/dL Magnesium (1.6-2.3) mg/dL Total Bilirubin 0.7 (0.2-1.3) mg/dL AST 17 (17-59) U/L ALT 20 L (21-72) U/L Alkaline Phosphatase 68 (38-126) U/L Total Protein 5.6 L (6.3-8.3) g/dL Albumin 2.9 L (3.5-5.0) g/dL Globulin 2.8 (2.2-3.9) gm/dL Albumin/Globulin Ratio 1.0 (1.0-2.1) Triglycerides (0-149) mg/dL Cholesterol (0-199) mg/dL LDL Cholesterol Direct (0-129) mg/dL HDL Cholesterol (30-70) mg/dL Amylase 355 H D (30-110) U/L Lipase 1213 H (23-300) U/L Urine Color Yellow (YELLOW) Urine Clarity Clear (Clear) Urine pH 5.0 (5.0-8.0) Ur Specific [place] 1.025 (1.003-1.030) Urine Protein Negative (NEGATIVE) mg/dL Urine Glucose (UA) 3+ H (Normal) mg/dL Urine Ketones 2+ H (NEGATIVE) mg/dL Urine Blood Negative (NEGATIVE) Urine Nitrate Negative (NEGATIVE) Urine Bilirubin Negative (NEGATIVE) Urine Urobilinogen Normal (0.2-1.0) mg/dL Ur Leukocyte Esterase Neg (Negative) [place]angel/uL Urine WBC (Auto) < 1 (0-5) /hpf Urine RBC (Auto) < 1 (0-3) /hpf Alcohol, Quantitative (0-10) mg/dl Serum Ketones Small (NEGATIVE) 06/25/16 06/25/16 06/25/16 Range/Units 10:15 09:14 08:06 WBC (4.8-10.8) K/uL RBC (4.40-5.90) Mil/uL Hgb (12.0-18.0) g/dL Hct (35.0-51.0) % MCV (80.0-94.0) fL MCH (27.0-31.0) pg MCHC (33.0-37.0) g/dL RDW (11.5-14.5) % Plt Count (130-400) K/uL MPV (7.2-11.7) fL Neut % (Auto) (50.0-75.0) % Lymph % (Auto) (20.0-40.0) % Becker % (Auto) (0.0-10.0) % Eos % (Auto) (0.0-4.0) % Baso % (Auto) (0.0-2.0) % Neut # (1.8-7.0) K/uL Lymph # (1.0-4.3) K/uL Becker # (0.0-0.8) K/uL Eos # (0.0-0.7) K/uL Baso # (0.0-0.2) K/uL Sodium (132-148) mmol/L Potassium (3.6-5.2) mmol/L Chloride (98-107) mmol/L Carbon Dioxide (22-30) mmol/L Anion Gap (10-20) BUN (9-20) mg/dL Creatinine (0.8-1.5) MG/DL Est GFR ( Amer) Est GFR (Non-Af Amer) POC Glucose (mg/dL) 203 H 187 H 209 H (65-110) mg/dL Random Glucose (75-110) mg/dL Calcium (8.6-10.4) mg/dl Phosphorus (2.5-4.5) mg/dL Magnesium (1.6-2.3) mg/dL Total Bilirubin (0.2-1.3) mg/dL AST (17-59) U/L ALT (21-72) U/L Alkaline Phosphatase (38-126) U/L Total Protein (6.3-8.3) g/dL Albumin (3.5-5.0) g/dL Globulin (2.2-3.9) gm/dL Albumin/Globulin Ratio (1.0-2.1) Triglycerides (0-149) mg/dL Cholesterol (0-199) mg/dL LDL Cholesterol Direct (0-129) mg/dL HDL Cholesterol (30-70) mg/dL Amylase (30-110) U/L Lipase (23-300) U/L Urine Color (YELLOW) Urine Clarity (Clear) Urine pH (5.0-8.0) Ur Specific [place] (1.003-1.030) Urine Protein (NEGATIVE) mg/dL Urine Glucose (UA) (Normal) mg/dL Urine Ketones (NEGATIVE) mg/dL Urine Blood (NEGATIVE) Urine Nitrate (NEGATIVE) Urine Bilirubin (NEGATIVE) Urine Urobilinogen (0.2-1.0) mg/dL Ur Leukocyte Esterase (Negative) [place]/uL Urine WBC (Auto) (0-5) /hpf Urine RBC (Auto) (0-3) /hpf Alcohol, Quantitative (0-10) mg/dl Serum Ketones (NEGATIVE) 06/25/16 06/25/16 06/25/16 Range/Units 06:55 06:11 06:08 WBC 7.2 (4.8-10.8) K/uL RBC 5.05 (4.40-5.90) Mil/uL Hgb 13.9 D (12.0-18.0) g/dL Hct 41.2 (35.0-51.0) % MCV 81.7 (80.0-94.0) fL MCH 27.6 (27.0-31.0) pg MCHC 33.8 (33.0-37.0) g/dL RDW 14.1 (11.5-14.5) % Plt Count 171 (130-400) K/uL MPV 7.7 (7.2-11.7) fL Neut % (Auto) 66.9 (50.0-75.0) % Lymph % (Auto) 23.3 (20.0-40.0) % Becker % (Auto) 8.4 (0.0-10.0) % Eos % (Auto) 0.6 (0.0-4.0) % Baso % (Auto) 0.8 (0.0-2.0) % Neut # 4.8 (1.8-7.0) K/uL Lymph # 1.7 (1.0-4.3) K/uL Becker # 0.6 (0.0-0.8) K/uL Eos # 0.0 (0.0-0.7) K/uL Baso # 0.1 (0.0-0.2) K/uL Sodium 137 (132-148) mmol/L Potassium 3.6 (3.6-5.2) mmol/L Chloride 108 H (98-107) mmol/L Carbon Dioxide 13 L (22-30) mmol/L Anion Gap 20 (10-20) BUN 8 L (9-20) mg/dL Creatinine 0.7 L (0.8-1.5) MG/DL Est GFR ( Amer) > 60 Est GFR (Non-Af Amer) > 60 POC Glucose (mg/dL) 184 H 199 H (65-110) mg/dL Random Glucose 184 H (75-110) mg/dL Calcium 7.8 L (8.6-10.4) mg/dl Phosphorus 2.0 L (2.5-4.5) mg/dL Magnesium 1.7 (1.6-2.3) mg/dL Total Bilirubin 0.5 (0.2-1.3) mg/dL AST 15 L (17-59) U/L ALT 17 L (21-72) U/L Alkaline Phosphatase 62 (38-126) U/L Total Protein 5.3 L (6.3-8.3) g/dL Albumin 2.7 L (3.5-5.0) g/dL Globulin 2.6 (2.2-3.9) gm/dL Albumin/Globulin Ratio 1.0 (1.0-2.1) Triglycerides (0-149) mg/dL Cholesterol (0-199) mg/dL LDL Cholesterol Direct (0-129) mg/dL HDL Cholesterol (30-70) mg/dL Amylase (30-110) U/L Lipase (23-300) U/L Urine Color (YELLOW) Urine Clarity (Clear) Urine pH (5.0-8.0) Ur Specific [place] (1.003-1.030) Urine Protein (NEGATIVE) mg/dL Urine Glucose (UA) (Normal) mg/dL Urine Ketones (NEGATIVE) mg/dL Urine Blood (NEGATIVE) Urine Nitrate (NEGATIVE) Urine Bilirubin (NEGATIVE) Urine Urobilinogen (0.2-1.0) mg/dL Ur Leukocyte Esterase (Negative) [place]/uL Urine WBC (Auto) (0-5) /hpf Urine RBC (Auto) (0-3) /hpf Alcohol, Quantitative (0-10) mg/dl Serum Ketones (NEGATIVE) 06/25/16 06/25/16 06/25/16 Range/Units 05:09 04:05 03:05 WBC (4.8-10.8) K/uL RBC (4.40-5.90) Mil/uL Hgb (12.0-18.0) g/dL Hct (35.0-51.0) % MCV (80.0-94.0) fL MCH (27.0-31.0) pg MCHC (33.0-37.0) g/dL RDW (11.5-14.5) % Plt Count (130-400) K/uL MPV (7.2-11.7) fL Neut % (Auto) (50.0-75.0) % Lymph % (Auto) (20.0-40.0) % Becker % (Auto) (0.0-10.0) % Eos % (Auto) (0.0-4.0) % Baso % (Auto) (0.0-2.0) % Neut # (1.8-7.0) K/uL Lymph # (1.0-4.3) K/uL Becker # (0.0-0.8) K/uL Eos # (0.0-0.7) K/uL Baso # (0.0-0.2) K/uL Sodium (132-148) mmol/L Potassium (3.6-5.2) mmol/L Chloride (98-107) mmol/L Carbon Dioxide (22-30) mmol/L Anion Gap (10-20) BUN (9-20) mg/dL Creatinine (0.8-1.5) MG/DL Est GFR ( Amer) Est GFR (Non-Af Amer) POC Glucose (mg/dL) 174 H 198 H 155 H (65-110) mg/dL Random Glucose (75-110) mg/dL Calcium (8.6-10.4) mg/dl Phosphorus (2.5-4.5) mg/dL Magnesium (1.6-2.3) mg/dL Total Bilirubin (0.2-1.3) mg/dL AST (17-59) U/L ALT (21-72) U/L Alkaline Phosphatase (38-126) U/L Total Protein (6.3-8.3) g/dL Albumin (3.5-5.0) g/dL Globulin (2.2-3.9) gm/dL Albumin/Globulin Ratio (1.0-2.1) Triglycerides (0-149) mg/dL Cholesterol (0-199) mg/dL LDL Cholesterol Direct (0-129) mg/dL HDL Cholesterol (30-70) mg/dL Amylase (30-110) U/L Lipase (23-300) U/L Urine Color (YELLOW) Urine Clarity (Clear) Urine pH (5.0-8.0) Ur Specific [place] (1.003-1.030) Urine Protein (NEGATIVE) mg/dL Urine Glucose (UA) (Normal) mg/dL Urine Ketones (NEGATIVE) mg/dL Urine Blood (NEGATIVE) Urine Nitrate (NEGATIVE) Urine Bilirubin (NEGATIVE) Urine Urobilinogen (0.2-1.0) mg/dL Ur Leukocyte Esterase (Negative) [place]/uL Urine WBC (Auto) (0-5) /hpf Urine RBC (Auto) (0-3) /hpf Alcohol, Quantitative (0-10) mg/dl Serum Ketones (NEGATIVE) 06/25/16 06/25/16 06/24/16 Range/Units 02:07 00:51 23:40 WBC (4.8-10.8) K/uL RBC (4.40-5.90) Mil/uL Hgb (12.0-18.0) g/dL Hct (35.0-51.0) % MCV (80.0-94.0) fL MCH (27.0-31.0) pg MCHC (33.0-37.0) g/dL RDW (11.5-14.5) % Plt Count (130-400) K/uL MPV (7.2-11.7) fL Neut % (Auto) (50.0-75.0) % Lymph % (Auto) (20.0-40.0) % Becker % (Auto) (0.0-10.0) % Eos % (Auto) (0.0-4.0) % Baso % (Auto) (0.0-2.0) % Neut # (1.8-7.0) K/uL Lymph # (1.0-4.3) K/uL Becker # (0.0-0.8) K/uL Eos # (0.0-0.7) K/uL Baso # (0.0-0.2) K/uL Sodium (132-148) mmol/L Potassium (3.6-5.2) mmol/L Chloride (98-107) mmol/L Carbon Dioxide (22-30) mmol/L Anion Gap (10-20) BUN (9-20) mg/dL Creatinine (0.8-1.5) MG/DL Est GFR ( Amer) Est GFR (Non-Af Amer) POC Glucose (mg/dL) 177 H 188 H 200 H (65-110) mg/dL Random Glucose (75-110) mg/dL Calcium (8.6-10.4) mg/dl Phosphorus (2.5-4.5) mg/dL Magnesium (1.6-2.3) mg/dL Total Bilirubin (0.2-1.3) mg/dL AST (17-59) U/L ALT (21-72) U/L Alkaline Phosphatase (38-126) U/L Total Protein (6.3-8.3) g/dL Albumin (3.5-5.0) g/dL Globulin (2.2-3.9) gm/dL Albumin/Globulin Ratio (1.0-2.1) Triglycerides (0-149) mg/dL Cholesterol (0-199) mg/dL LDL Cholesterol Direct (0-129) mg/dL HDL Cholesterol (30-70) mg/dL Amylase (30-110) U/L Lipase (23-300) U/L Urine Color (YELLOW) Urine Clarity (Clear) Urine pH (5.0-8.0) Ur Specific [place] (1.003-1.030) Urine Protein (NEGATIVE) mg/dL Urine Glucose (UA) (Normal) mg/dL Urine Ketones (NEGATIVE) mg/dL Urine Blood (NEGATIVE) Urine Nitrate (NEGATIVE) Urine Bilirubin (NEGATIVE) Urine Urobilinogen (0.2-1.0) mg/dL Ur Leukocyte Esterase (Negative) [place]/uL Urine WBC (Auto) (0-5) /hpf Urine RBC (Auto) (0-3) /hpf Alcohol, Quantitative (0-10) mg/dl Serum Ketones (NEGATIVE) 06/24/16 06/24/16 06/24/16 Range/Units 22:59 22:32 22:14 WBC (4.8-10.8) K/uL RBC (4.40-5.90) Mil/uL Hgb (12.0-18.0) g/dL Hct (35.0-51.0) % MCV (80.0-94.0) fL MCH (27.0-31.0) pg MCHC (33.0-37.0) g/dL RDW (11.5-14.5) % Plt Count (130-400) K/uL MPV (7.2-11.7) fL Neut % (Auto) (50.0-75.0) % Lymph % (Auto) (20.0-40.0) % Becker % (Auto) (0.0-10.0) % Eos % (Auto) (0.0-4.0) % Baso % (Auto) (0.0-2.0) % Neut # (1.8-7.0) K/uL Lymph # (1.0-4.3) K/uL Becker # (0.0-0.8) K/uL Eos # (0.0-0.7) K/uL Baso # (0.0-0.2) K/uL Sodium 134 (132-148) mmol/L Potassium 3.4 L (3.6-5.2) mmol/L Chloride 106 (98-107) mmol/L Carbon Dioxide 11 L* (22-30) mmol/L Anion Gap 20 (10-20) BUN 9 (9-20) mg/dL Creatinine 0.7 L (0.8-1.5) MG/DL Est GFR ( Amer) > 60 Est GFR (Non-Af Amer) > 60 POC Glucose (mg/dL) 216 H 230 H (65-110) mg/dL Random Glucose 208 H (75-110) mg/dL Calcium 7.7 L (8.6-10.4) mg/dl Phosphorus (2.5-4.5) mg/dL Magnesium (1.6-2.3) mg/dL Total Bilirubin 0.5 (0.2-1.3) mg/dL AST 18 (17-59) U/L ALT 17 L D (21-72) U/L Alkaline Phosphatase 64 (38-126) U/L Total Protein 5.4 L (6.3-8.3) g/dL Albumin 2.8 L (3.5-5.0) g/dL Globulin 2.6 (2.2-3.9) gm/dL Albumin/Globulin Ratio 1.1 (1.0-2.1) Triglycerides (0-149) mg/dL Cholesterol (0-199) mg/dL LDL Cholesterol Direct (0-129) mg/dL HDL Cholesterol (30-70) mg/dL Amylase (30-110) U/L Lipase (23-300) U/L Urine Color (YELLOW) Urine Clarity (Clear) Urine pH (5.0-8.0) Ur Specific [place] (1.003-1.030) Urine Protein (NEGATIVE) mg/dL Urine Glucose (UA) (Normal) mg/dL Urine Ketones (NEGATIVE) mg/dL Urine Blood (NEGATIVE) Urine Nitrate (NEGATIVE) Urine Bilirubin (NEGATIVE) Urine Urobilinogen (0.2-1.0) mg/dL Ur Leukocyte Esterase (Negative) [place]/uL Urine WBC (Auto) (0-5) /hpf Urine RBC (Auto) (0-3) /hpf Alcohol, Quantitative (0-10) mg/dl Serum Ketones (NEGATIVE) 06/24/16 06/24/16 06/24/16 Range/Units 21:08 20:05 18:02 WBC (4.8-10.8) K/uL RBC (4.40-5.90) Mil/uL Hgb (12.0-18.0) g/dL Hct (35.0-51.0) % MCV (80.0-94.0) fL MCH (27.0-31.0) pg MCHC (33.0-37.0) g/dL RDW (11.5-14.5) % Plt Count (130-400) K/uL MPV (7.2-11.7) fL Neut % (Auto) (50.0-75.0) % Lymph % (Auto) (20.0-40.0) % Becker % (Auto) (0.0-10.0) % Eos % (Auto) (0.0-4.0) % Baso % (Auto) (0.0-2.0) % Neut # (1.8-7.0) K/uL Lymph # (1.0-4.3) K/uL Becker # (0.0-0.8) K/uL Eos # (0.0-0.7) K/uL Baso # (0.0-0.2) K/uL Sodium (132-148) mmol/L Potassium (3.6-5.2) mmol/L Chloride (98-107) mmol/L Carbon Dioxide (22-30) mmol/L Anion Gap (10-20) BUN (9-20) mg/dL Creatinine (0.8-1.5) MG/DL Est GFR ( Amer) Est GFR (Non-Af Amer) POC Glucose (mg/dL) 225 H 232 H 223 H (65-110) mg/dL Random Glucose (75-110) mg/dL Calcium (8.6-10.4) mg/dl Phosphorus (2.5-4.5) mg/dL Magnesium (1.6-2.3) mg/dL Total Bilirubin (0.2-1.3) mg/dL AST (17-59) U/L ALT (21-72) U/L Alkaline Phosphatase (38-126) U/L Total Protein (6.3-8.3) g/dL Albumin (3.5-5.0) g/dL Globulin (2.2-3.9) gm/dL Albumin/Globulin Ratio (1.0-2.1) Triglycerides (0-149) mg/dL Cholesterol (0-199) mg/dL LDL Cholesterol Direct (0-129) mg/dL HDL Cholesterol (30-70) mg/dL Amylase (30-110) U/L Lipase (23-300) U/L Urine Color (YELLOW) Urine Clarity (Clear) Urine pH (5.0-8.0) Ur Specific [place] (1.003-1.030) Urine Protein (NEGATIVE) mg/dL Urine Glucose (UA) (Normal) mg/dL Urine Ketones (NEGATIVE) mg/dL Urine Blood (NEGATIVE) Urine Nitrate (NEGATIVE) Urine Bilirubin (NEGATIVE) Urine Urobilinogen (0.2-1.0) mg/dL Ur Leukocyte Esterase (Negative) [place]/uL Urine WBC (Auto) (0-5) /hpf Urine RBC (Auto) (0-3) /hpf Alcohol, Quantitative (0-10) mg/dl Serum Ketones (NEGATIVE) 06/24/16 06/24/16 06/24/16 Range/Units 17:19 16:04 14:40 WBC (4.8-10.8) K/uL RBC (4.40-5.90) Mil/uL Hgb (12.0-18.0) g/dL Hct (35.0-51.0) % MCV (80.0-94.0) fL MCH (27.0-31.0) pg MCHC (33.0-37.0) g/dL RDW (11.5-14.5) % Plt Count (130-400) K/uL MPV (7.2-11.7) fL Neut % (Auto) (50.0-75.0) % Lymph % (Auto) (20.0-40.0) % Becker % (Auto) (0.0-10.0) % Eos % (Auto) (0.0-4.0) % Baso % (Auto) (0.0-2.0) % Neut # (1.8-7.0) K/uL Lymph # (1.0-4.3) K/uL Becker # (0.0-0.8) K/uL Eos # (0.0-0.7) K/uL Baso # (0.0-0.2) K/uL Sodium 136 (132-148) mmol/L Potassium 3.9 (3.6-5.2) mmol/L Chloride 106 (98-107) mmol/L Carbon Dioxide 13 L (22-30) mmol/L Anion Gap 21 H (10-20) BUN 13 (9-20) mg/dL Creatinine 0.9 (0.8-1.5) MG/DL Est GFR ( Amer) > 60 Est GFR (Non-Af Amer) > 60 POC Glucose (mg/dL) 179 H 225 H (65-110) mg/dL Random Glucose 197 H (75-110) mg/dL Calcium 7.9 L (8.6-10.4) mg/dl Phosphorus 2.3 L (2.5-4.5) mg/dL Magnesium 1.8 (1.6-2.3) mg/dL Total Bilirubin 0.6 (0.2-1.3) mg/dL AST 20 (17-59) U/L ALT 23 (21-72) U/L Alkaline Phosphatase 75 (38-126) U/L Total Protein 6.3 (6.3-8.3) g/dL Albumin 3.1 L (3.5-5.0) g/dL Globulin 3.2 (2.2-3.9) gm/dL Albumin/Globulin Ratio 1.0 (1.0-2.1) Triglycerides 122 (0-149) mg/dL Cholesterol 171 (0-199) mg/dL LDL Cholesterol Direct 110 (0-129) mg/dL HDL Cholesterol 39 (30-70) mg/dL Amylase (30-110) U/L Lipase 4940 H (23-300) U/L Urine Color (YELLOW) Urine Clarity (Clear) Urine pH (5.0-8.0) Ur Specific [place] (1.003-1.030) Urine Protein (NEGATIVE) mg/dL Urine Glucose (UA) (Normal) mg/dL Urine Ketones (NEGATIVE) mg/dL Urine Blood (NEGATIVE) Urine Nitrate (NEGATIVE) Urine Bilirubin (NEGATIVE) Urine Urobilinogen (0.2-1.0) mg/dL Ur Leukocyte Esterase (Negative) [place]/uL Urine WBC (Auto) (0-5) /hpf Urine RBC (Auto) (0-3) /hpf Alcohol, Quantitative < 10 (0-10) mg/dl Serum Ketones (NEGATIVE) Laboratory Results - last 24 hr 06/24/16 06/24/16 06/24/16 14:40 16:04 17:19 WBC RBC Hgb Hct MCV MCH MCHC RDW Plt Count MPV Neut % (Auto) Lymph % (Auto) Becker % (Auto) Eos % (Auto) Baso % (Auto) Neut # Lymph # Becker # Eos # Baso # Sodium 136 Potassium 3.9 Chloride 106 Carbon Dioxide 13 L Anion Gap 21 H BUN 13 Creatinine 0.9 Est GFR ( Amer) > 60 Est GFR (Non-Af Amer) > 60 POC Glucose (mg/dL) 225 H 179 H Random Glucose 197 H Calcium 7.9 L Phosphorus 2.3 L Magnesium 1.8 Total Bilirubin 0.6 AST 20 ALT 23 Alkaline Phosphatase 75 Total Protein 6.3 Albumin 3.1 L Globulin 3.2 Albumin/Globulin Ratio 1.0 Triglycerides 122 Cholesterol 171 LDL Cholesterol Direct 110 HDL Cholesterol 39 Amylase Lipase 4940 H Urine Color Urine Clarity Urine pH Ur Specific [place] Urine Protein Urine Glucose (UA) Urine Ketones Urine Blood Urine Nitrate Urine Bilirubin Urine Urobilinogen Ur Leukocyte Esterase Urine WBC (Auto) Urine RBC (Auto) Alcohol, Quantitative < 10 Serum Ketones 06/24/16 06/24/16 06/24/16 18:02 20:05 21:08 WBC RBC Hgb Hct MCV MCH MCHC RDW Plt Count MPV Neut % (Auto) Lymph % (Auto) Becker % (Auto) Eos % (Auto) Baso % (Auto) Neut # Lymph # Becker # Eos # Baso # Sodium Potassium Chloride Carbon Dioxide Anion Gap BUN Creatinine Est GFR ( Amer) Est GFR (Non-Af Amer) POC Glucose (mg/dL) 223 H 232 H 225 H Random Glucose Calcium Phosphorus Magnesium Total Bilirubin AST ALT Alkaline Phosphatase Total Protein Albumin Globulin Albumin/Globulin Ratio Triglycerides Cholesterol LDL Cholesterol Direct HDL Cholesterol Amylase Lipase Urine Color Urine Clarity Urine pH Ur Specific [place] Urine Protein Urine Glucose (UA) Urine Ketones Urine Blood Urine Nitrate Urine Bilirubin Urine Urobilinogen Ur Leukocyte Esterase Urine WBC (Auto) Urine RBC (Auto) Alcohol, Quantitative Serum Ketones 06/24/16 06/24/16 06/24/16 22:14 22:32 22:59 WBC RBC Hgb Hct MCV MCH MCHC RDW Plt Count MPV Neut % (Auto) Lymph % (Auto) Becker % (Auto) Eos % (Auto) Baso % (Auto) Neut # Lymph # Becker # Eos # Baso # Sodium 134 Potassium 3.4 L Chloride 106 Carbon Dioxide 11 L* Anion Gap 20 BUN 9 Creatinine 0.7 L Est GFR ( Amer) > 60 Est GFR (Non-Af Amer) > 60 POC Glucose (mg/dL) 230 H 216 H Random Glucose 208 H Calcium 7.7 L Phosphorus Magnesium Total Bilirubin 0.5 AST 18 ALT 17 L D Alkaline Phosphatase 64 Total Protein 5.4 L Albumin 2.8 L Globulin 2.6 Albumin/Globulin Ratio 1.1 Triglycerides Cholesterol LDL Cholesterol Direct HDL Cholesterol Amylase Lipase Urine Color Urine Clarity Urine pH Ur Specific [place] Urine Protein Urine Glucose (UA) Urine Ketones Urine Blood Urine Nitrate Urine Bilirubin Urine Urobilinogen Ur Leukocyte Esterase Urine WBC (Auto) Urine RBC (Auto) Alcohol, Quantitative Serum Ketones 06/24/16 06/25/16 06/25/16 23:40 00:51 02:07 WBC RBC Hgb Hct MCV MCH MCHC RDW Plt Count MPV Neut % (Auto) Lymph % (Auto) Becker % (Auto) Eos % (Auto) Baso % (Auto) Neut # Lymph # Becker # Eos # Baso # Sodium Potassium Chloride Carbon Dioxide Anion Gap BUN Creatinine Est GFR ( Amer) Est GFR (Non-Af Amer) POC Glucose (mg/dL) 200 H 188 H 177 H Random Glucose Calcium Phosphorus Magnesium Total Bilirubin AST ALT Alkaline Phosphatase Total Protein Albumin Globulin Albumin/Globulin Ratio Triglycerides Cholesterol LDL Cholesterol Direct HDL Cholesterol Amylase Lipase Urine Color Urine Clarity Urine pH Ur Specific [place] Urine Protein Urine Glucose (UA) Urine Ketones Urine Blood Urine Nitrate Urine Bilirubin Urine Urobilinogen Ur Leukocyte Esterase Urine WBC (Auto) Urine RBC (Auto) Alcohol, Quantitative Serum Ketones 06/25/16 06/25/16 06/25/16 03:05 04:05 05:09 WBC RBC Hgb Hct MCV MCH MCHC RDW Plt Count MPV Neut % (Auto) Lymph % (Auto) Becker % (Auto) Eos % (Auto) Baso % (Auto) Neut # Lymph # [place] # Eos # Baso # Sodium Potassium Chloride Carbon Dioxide Anion Gap BUN Creatinine Est GFR ( Amer) Est GFR (Non-Af Amer) POC Glucose (mg/dL) 155 H 198 H 174 H Random Glucose Calcium Phosphorus Magnesium Total Bilirubin AST ALT Alkaline Phosphatase Total Protein Albumin Globulin Albumin/Globulin Ratio Triglycerides Cholesterol LDL Cholesterol Direct HDL Cholesterol Amylase Lipase Urine Color Urine Clarity Urine pH Ur Specific [place] Urine Protein Urine Glucose (UA) Urine Ketones Urine Blood Urine Nitrate Urine Bilirubin Urine Urobilinogen Ur Leukocyte Esterase Urine WBC (Auto) Urine RBC (Auto) Alcohol, Quantitative Serum Ketones 06/25/16 06/25/16 06/25/16 06:08 06:11 06:55 WBC 7.2 RBC 5.05 Hgb 13.9 D Hct 41.2 MCV 81.7 MCH 27.6 MCHC 33.8 RDW 14.1 Plt Count 171 MPV 7.7 Neut % (Auto) 66.9 Lymph % (Auto) 23.3 Becker % (Auto) 8.4 Eos % (Auto) 0.6 Baso % (Auto) 0.8 Neut # 4.8 Lymph # 1.7 Becker # 0.6 Eos # 0.0 Baso # 0.1 Sodium 137 Potassium 3.6 Chloride 108 H Carbon Dioxide 13 L Anion Gap 20 BUN 8 L Creatinine 0.7 L Est GFR ( Amer) > 60 Est GFR (Non-Af Amer) > 60 POC Glucose (mg/dL) 199 H 184 H Random Glucose 184 H Calcium 7.8 L Phosphorus 2.0 L Magnesium 1.7 Total Bilirubin 0.5 AST 15 L ALT 17 L Alkaline Phosphatase 62 Total Protein 5.3 L Albumin 2.7 L Globulin 2.6 Albumin/Globulin Ratio 1.0 Triglycerides Cholesterol LDL Cholesterol Direct HDL Cholesterol Amylase Lipase Urine Color Urine Clarity Urine pH Ur Specific [place] Urine Protein Urine Glucose (UA) Urine Ketones Urine Blood Urine Nitrate Urine Bilirubin Urine Urobilinogen Ur Leukocyte Esterase Urine WBC (Auto) Urine RBC (Auto) Alcohol, Quantitative Serum Ketones 06/25/16 06/25/16 06/25/16 08:06 09:14 10:15 WBC RBC Hgb Hct MCV MCH MCHC RDW Plt Count MPV Neut % (Auto) Lymph % (Auto) Becker % (Auto) Eos % (Auto) Baso % (Auto) Neut # Lymph # Becker # Eos # Baso # Sodium Potassium Chloride Carbon Dioxide Anion Gap BUN Creatinine Est GFR ( Amer) Est GFR (Non-Af Amer) POC Glucose (mg/dL) 209 H 187 H 203 H Random Glucose Calcium Phosphorus Magnesium Total Bilirubin AST ALT Alkaline Phosphatase Total Protein Albumin Globulin Albumin/Globulin Ratio Triglycerides Cholesterol LDL Cholesterol Direct HDL Cholesterol Amylase Lipase Urine Color Urine Clarity Urine pH Ur Specific [place] Urine Protein Urine Glucose (UA) Urine Ketones Urine Blood Urine Nitrate Urine Bilirubin Urine Urobilinogen Ur Leukocyte Esterase Urine WBC (Auto) Urine RBC (Auto) Alcohol, Quantitative Serum Ketones 06/25/16 06/25/16 06/25/16 10:33 11:12 12:07 WBC RBC Hgb Hct MCV MCH MCHC RDW Plt Count MPV Neut % (Auto) Lymph % (Auto) Becker % (Auto) Eos % (Auto) Baso % (Auto) Neut # Lymph # Becker # Eos # Baso # Sodium 134 Potassium 3.6 Chloride 104 Carbon Dioxide 12 L Anion Gap 22 H BUN 7 L Creatinine 0.7 L Est GFR ( Amer) > 60 Est GFR (Non-Af Amer) > 60 POC Glucose (mg/dL) 249 H 232 H Random Glucose 220 H Calcium 7.9 L Phosphorus Magnesium Total Bilirubin 0.7 AST 17 ALT 20 L Alkaline Phosphatase 68 Total Protein 5.6 L Albumin 2.9 L Globulin 2.8 Albumin/Globulin Ratio 1.0 Triglycerides Cholesterol LDL Cholesterol Direct HDL Cholesterol Amylase 355 H D Lipase 1213 H Urine Color Yellow Urine Clarity Clear Urine pH 5.0 Ur Specific [place] 1.025 Urine Protein Negative Urine Glucose (UA) 3+ H Urine Ketones 2+ H Urine Blood Negative Urine Nitrate Negative Urine Bilirubin Negative Urine Urobilinogen Normal Ur Leukocyte Esterase Neg Urine WBC (Auto) < 1 Urine RBC (Auto) < 1 Alcohol, Quantitative Serum Ketones Small 06/25/16 06/25/16 06/25/16 13:09 14:07 14:11 WBC RBC Hgb Hct MCV MCH MCHC RDW Plt Count MPV Neut % (Auto) Lymph % (Auto) Becker % (Auto) Eos % (Auto) Baso % (Auto) Neut # Lymph # Becker # Eos # Baso # Sodium 134 Potassium 3.4 L Chloride 105 Carbon Dioxide 17 L Anion Gap 15 BUN 7 L Creatinine 0.6 L Est GFR ( Amer) > 60 Est GFR (Non-Af Amer) > 60 POC Glucose (mg/dL) 203 H 184 H Random Glucose 176 H Calcium 8.0 L Phosphorus Magnesium Total Bilirubin AST ALT Alkaline Phosphatase Total Protein Albumin Globulin Albumin/Globulin Ratio Triglycerides Cholesterol LDL Cholesterol Direct HDL Cholesterol Amylase Lipase Urine Color Urine Clarity Urine pH Ur Specific [place] Urine Protein Urine Glucose (UA) Urine Ketones Urine Blood Urine Nitrate Urine Bilirubin Urine Urobilinogen Ur Leukocyte Esterase Urine WBC (Auto) Urine RBC (Auto) Alcohol, Quantitative Serum Ketones Fingerstick Blood Sugar Results: 232 Review of Systems - Review of Systems Review of Systems: as noted in subjective Critical Care Progress Note - Prophylaxis GI Prophylaxis GI: Pepsid - Prophylaxis DVT Prophylaxis DVT: Lovenox - Nutrition Nutrition: Nutrition Category Date Time Status NPO Diet [DIET] Diets 06/24/16 Breakfast Active Assessment/Plan - Assessment and Plan (Free Text) Assessment: 46 M with past medical history of DM Type I ( diagnosed 10 years ago) who presented to the ED yesterday with shortness of breath, nausea, vomiting, and abdominal pain. Pt admitted to ICU for DKA and now suspected pancreatitis though pancreatic enzymes are improving. Plan: Neuro: AAOx3 No neurologic deficit ETOH screen - negative Pulm: On n.c. O2 sat 98-99% RR stable 06/23/16 CXR: Diffuse increased interstitial markings suggestive for venous congestion and or interstitial infiltrates. Left hilar prominence. Biapical pleural thickening with upper lobe granulomatous changes. Cardio: Hx of HTN, Normotensive at this time 06/24/16 ECG: Sinus tachycardia, T wave abnormality, consider inferior ischemia. Troponin I: <0.0120 Monitor Heme: WBC 7.2 (06/25/16) improved H/H: 13.9/41.2 (06/25/16) Plt 171 (06/25/16) GI: Acute pancreatitis, likely DKA associated Lipase and Amylase improved today ( NPO) 06/24/16 CT abdomen/pelvis - Peripancreatic inflammatory stranding, peripancreatic adenopathy, and mild pancreatic edema consistent with acute pancreatitis.Small hiatal hernia/distal esophageal wall thickening and evidence of gastroesophageal reflux. Recommend further evaluation with endoscopy given prominent distal esophageal wall thickening of unclear significance. 06/24/16 U/S abdomen - Diffuse increased echogenicity in the liver may reflect hepatic steatosis, however, parenchymal infections/inflammatory etiologies cannot be entirely excluded. Clinical and laboratory correlation is advised. No evidence of chlelithiasis or biliary dilatation. Abdominal pain - resolving Lipid panel - WNL GI Consulted (Dr. Owen Xiao) - help appreciated NPO, Continue IVF. Can advance to liquid diet with noted improvement. Would benefit from EGD evaluation of esophageal wall thickening non emrgently after pressing clinical matters are addressed. Endo: DKA Insulin drip inc to 4 mls/hr to close anion gap Anion Gap 15 as of afternoon labs; serum ketones low IVF D5- 0.45NS IV @155cc/hr Sodium Chloride IV Zofran 4mg IVP Q6h Hgb A1c 12.0, FBS 187 (06/24/16 10:00) Accuchecks Q1h Nephro: BUN/Cr: 7/0.6 Ca2+ 8.1 Hypokalemia- repleted Phos - repleted ID: WBC 7.2 Blood pending, urine negative, MRSA cultures not detected : UA (06/23/16): protein 1+, Glu 3+, Ketones 2+, Blood 1+, Leuk esterase - UDS pending Monitor Prophylaxis: DVT ppx: Lovenox 40mg subq daily, SCDs GI ppx: Pepcid 20mg IV Q12h <Jose Negro S - Last Filed: 06/25/16 18:23> CCU Objective - Vital Signs / Intake & Output Vital Signs (Last 4 hours): Vital Signs Temp Pulse Resp BP Pulse Ox 06/25/16 18:01 89 28 H 144/80 100 06/25/16 18:00 83 28 H 100 06/25/16 17:42 85 25 H 99 06/25/16 17:01 90 17 133/72 100 06/25/16 17:00 89 20 100 06/25/16 16:09 85 29 H 99 06/25/16 16:01 84 22 132/75 98 06/25/16 16:00 98.2 F 85 25 H 99 06/25/16 15:55 86 24 131/68 98 06/25/16 15:09 80 22 100 06/25/16 15:01 85 31 H 131/68 100 06/25/16 15:00 82 36 H 100 06/25/16 14:24 85 15 98 Intake and Output (Last 8hrs): Intake & Output 06/25/16 06/25/16 06/25/16 06:59 14:59 22:59 Intake Total 1268 1199 616 Output Total 400 1300 150 Balance 868 -101 466 Intake: Intake, IV Amount 1118 1199 616 Right Antecubital 18 24 16 Left Antecubital 1050 1175 600 Left Hand 50 Oral 150 Output: Urine 400 1300 150 Urine, Voided 400 1300 150 - Medications Active Medications: Active Medications Generic Name Dose Route Start Last Admin Trade Name Freq PRN Reason Stop Dose Admin Acetaminophen 650 mg 06/23/16 20:21 Tylenol 325mg Tab PO Q6 PRN Headache Enoxaparin Sodium 40 mg 06/24/16 10:00 06/25/16 09:20 Lovenox SC 40 mg DAILY KIM Administration Famotidine 20 mg 06/23/16 22:00 06/25/16 09:20 Pepcid PO 20 mg Q12 KIM Administration Insulin Human Regular 100 unit 100 mls @ 4 mls/hr 06/23/16 19:30 06/25/16 11:30 / Sodium Chloride IV 4 units/hr .Q24H KIM Titration Protocol Potassium Chloride/Dextrose/Sod Cl 1,000 mls @ 150 mls/hr 06/25/16 07:45 15:38 Potassium Chl 40 Meq In D5-1/2ns IV 150 mls/hr .Q6H40M KIM Administration Morphine Sulfate 2 mg 06/23/16 20:09 Morphine IVP Q4H PRN Pain, moderate (4-7) Ondansetron HCl 4 mg 06/23/16 20:09 Zofran Inj IVP Q6H PRN Nausea/Vomiting - Patient Studies Lab Studies: Microbiology Studies 06/23/16 Unknown Urine Culture - Final Urine No Growth (<1,000 CFU/ML) 06/23/16 Unknown MRSA Culture (Admit) - Final Naris MRSA NOT DETECTED Lab Studies 06/25/16 06/25/16 06/25/16 Range/Units 18:02 16:52 16:04 WBC (4.8-10.8) K/uL RBC (4.40-5.90) Mil/uL Hgb (12.0-18.0) g/dL Hct (35.0-51.0) % MCV (80.0-94.0) fL MCH (27.0-31.0) pg MCHC (33.0-37.0) g/dL RDW (11.5-14.5) % Plt Count (130-400) K/uL MPV (7.2-11.7) fL Neut % (Auto) (50.0-75.0) % Lymph % (Auto) (20.0-40.0) % Becker % (Auto) (0.0-10.0) % Eos % (Auto) (0.0-4.0) % Baso % (Auto) (0.0-2.0) % Neut # (1.8-7.0) K/uL Lymph # (1.0-4.3) K/uL Becker # (0.0-0.8) K/uL Eos # (0.0-0.7) K/uL Baso # (0.0-0.2) K/uL Sodium (132-148) mmol/L Potassium (3.6-5.2) mmol/L Chloride (98-107) mmol/L Carbon Dioxide (22-30) mmol/L Anion Gap (10-20) BUN (9-20) mg/dL Creatinine (0.8-1.5) MG/DL Est GFR ( Amer) Est GFR (Non-Af Amer) POC Glucose (mg/dL) 194 H 197 H 194 H (65-110) mg/dL Random Glucose (75-110) mg/dL Calcium (8.6-10.4) mg/dl Phosphorus (2.5-4.5) mg/dL Magnesium (1.6-2.3) mg/dL Total Bilirubin (0.2-1.3) mg/dL AST (17-59) U/L ALT (21-72) U/L Alkaline Phosphatase (38-126) U/L Total Protein (6.3-8.3) g/dL Albumin (3.5-5.0) g/dL Globulin (2.2-3.9) gm/dL Albumin/Globulin Ratio (1.0-2.1) Amylase (30-110) U/L Lipase (23-300) U/L Urine Color (YELLOW) Urine Clarity (Clear) Urine pH (5.0-8.0) Ur Specific [place] (1.003-1.030) Urine Protein (NEGATIVE) mg/dL Urine Glucose (UA) (Normal) mg/dL Urine Ketones (NEGATIVE) mg/dL Urine Blood (NEGATIVE) Urine Nitrate (NEGATIVE) Urine Bilirubin (NEGATIVE) Urine Urobilinogen (0.2-1.0) mg/dL Ur Leukocyte Esterase (Negative) [place]/uL Urine WBC (Auto) (0-5) /hpf Urine RBC (Auto) (0-3) /hpf Serum Ketones (NEGATIVE) 06/25/16 06/25/16 06/25/16 Range/Units 15:01 14:11 14:07 WBC (4.8-10.8) K/uL RBC (4.40-5.90) Mil/uL Hgb (12.0-18.0) g/dL Hct (35.0-51.0) % MCV (80.0-94.0) fL MCH (27.0-31.0) pg MCHC (33.0-37.0) g/dL RDW (11.5-14.5) % Plt Count (130-400) K/uL MPV (7.2-11.7) fL Neut % (Auto) (50.0-75.0) % Lymph % (Auto) (20.0-40.0) % Becker % (Auto) (0.0-10.0) % Eos % (Auto) (0.0-4.0) % Baso % (Auto) (0.0-2.0) % Neut # (1.8-7.0) K/uL Lymph # (1.0-4.3) K/uL Becker # (0.0-0.8) K/uL Eos # (0.0-0.7) K/uL Baso # (0.0-0.2) K/uL Sodium 134 (132-148) mmol/L Potassium 3.4 L (3.6-5.2) mmol/L Chloride 105 (98-107) mmol/L Carbon Dioxide 17 L (22-30) mmol/L Anion Gap 15 (10-20) BUN 7 L (9-20) mg/dL Creatinine 0.6 L (0.8-1.5) MG/DL Est GFR ( Amer) > 60 Est GFR (Non-Af Amer) > 60 POC Glucose (mg/dL) 226 H 184 H (65-110) mg/dL Random Glucose 176 H (75-110) mg/dL Calcium 8.0 L (8.6-10.4) mg/dl Phosphorus (2.5-4.5) mg/dL Magnesium (1.6-2.3) mg/dL Total Bilirubin (0.2-1.3) mg/dL AST (17-59) U/L ALT (21-72) U/L Alkaline Phosphatase (38-126) U/L Total Protein (6.3-8.3) g/dL Albumin (3.5-5.0) g/dL Globulin (2.2-3.9) gm/dL Albumin/Globulin Ratio (1.0-2.1) Amylase (30-110) U/L Lipase (23-300) U/L Urine Color (YELLOW) Urine Clarity (Clear) Urine pH (5.0-8.0) Ur Specific [place] (1.003-1.030) Urine Protein (NEGATIVE) mg/dL Urine Glucose (UA) (Normal) mg/dL Urine Ketones (NEGATIVE) mg/dL Urine Blood (NEGATIVE) Urine Nitrate (NEGATIVE) Urine Bilirubin (NEGATIVE) Urine Urobilinogen (0.2-1.0) mg/dL Ur Leukocyte Esterase (Negative) [place]/uL Urine WBC (Auto) (0-5) /hpf Urine RBC (Auto) (0-3) /hpf Serum Ketones (NEGATIVE) 06/25/16 06/25/16 06/25/16 Range/Units 13:09 12:07 11:12 WBC (4.8-10.8) K/uL RBC (4.40-5.90) Mil/uL Hgb (12.0-18.0) g/dL Hct (35.0-51.0) % MCV (80.0-94.0) fL MCH (27.0-31.0) pg MCHC (33.0-37.0) g/dL RDW (11.5-14.5) % Plt Count (130-400) K/uL MPV (7.2-11.7) fL Neut % (Auto) (50.0-75.0) % Lymph % (Auto) (20.0-40.0) % Becker % (Auto) (0.0-10.0) % Eos % (Auto) (0.0-4.0) % Baso % (Auto) (0.0-2.0) % Neut # (1.8-7.0) K/uL Lymph # (1.0-4.3) K/uL Becker # (0.0-0.8) K/uL Eos # (0.0-0.7) K/uL Baso # (0.0-0.2) K/uL Sodium (132-148) mmol/L Potassium (3.6-5.2) mmol/L Chloride (98-107) mmol/L Carbon Dioxide (22-30) mmol/L Anion Gap (10-20) BUN (9-20) mg/dL Creatinine (0.8-1.5) MG/DL Est GFR ( Amer) Est GFR (Non-Af Amer) POC Glucose (mg/dL) 203 H 232 H 249 H (65-110) mg/dL Random Glucose (75-110) mg/dL Calcium (8.6-10.4) mg/dl Phosphorus (2.5-4.5) mg/dL Magnesium (1.6-2.3) mg/dL Total Bilirubin (0.2-1.3) mg/dL AST (17-59) U/L ALT (21-72) U/L Alkaline Phosphatase (38-126) U/L Total Protein (6.3-8.3) g/dL Albumin (3.5-5.0) g/dL Globulin (2.2-3.9) gm/dL Albumin/Globulin Ratio (1.0-2.1) Amylase (30-110) U/L Lipase (23-300) U/L Urine Color (YELLOW) Urine Clarity (Clear) Urine pH (5.0-8.0) Ur Specific [place] (1.003-1.030) Urine Protein (NEGATIVE) mg/dL Urine Glucose (UA) (Normal) mg/dL Urine Ketones (NEGATIVE) mg/dL Urine Blood (NEGATIVE) Urine Nitrate (NEGATIVE) Urine Bilirubin (NEGATIVE) Urine Urobilinogen (0.2-1.0) mg/dL Ur Leukocyte Esterase (Negative) [place]/uL Urine WBC (Auto) (0-5) /hpf Urine RBC (Auto) (0-3) /hpf Serum Ketones (NEGATIVE) 06/25/16 06/25/16 06/25/16 Range/Units 10:33 10:15 09:14 WBC (4.8-10.8) K/uL RBC (4.40-5.90) Mil/uL Hgb (12.0-18.0) g/dL Hct (35.0-51.0) % MCV (80.0-94.0) fL MCH (27.0-31.0) pg MCHC (33.0-37.0) g/dL RDW (11.5-14.5) % Plt Count (130-400) K/uL MPV (7.2-11.7) fL Neut % (Auto) (50.0-75.0) % Lymph % (Auto) (20.0-40.0) % Becker % (Auto) (0.0-10.0) % Eos % (Auto) (0.0-4.0) % Baso % (Auto) (0.0-2.0) % Neut # (1.8-7.0) K/uL Lymph # (1.0-4.3) K/uL Becker # (0.0-0.8) K/uL Eos # (0.0-0.7) K/uL Baso # (0.0-0.2) K/uL Sodium 134 (132-148) mmol/L Potassium 3.6 (3.6-5.2) mmol/L Chloride 104 (98-107) mmol/L Carbon Dioxide 12 L (22-30) mmol/L Anion Gap 22 H (10-20) BUN 7 L (9-20) mg/dL Creatinine 0.7 L (0.8-1.5) MG/DL Est GFR ( Amer) > 60 Est GFR (Non-Af Amer) > 60 POC Glucose (mg/dL) 203 H 187 H (65-110) mg/dL Random Glucose 220 H (75-110) mg/dL Calcium 7.9 L (8.6-10.4) mg/dl Phosphorus (2.5-4.5) mg/dL Magnesium (1.6-2.3) mg/dL Total Bilirubin 0.7 (0.2-1.3) mg/dL AST 17 (17-59) U/L ALT 20 L (21-72) U/L Alkaline Phosphatase 68 (38-126) U/L Total Protein 5.6 L (6.3-8.3) g/dL Albumin 2.9 L (3.5-5.0) g/dL Globulin 2.8 (2.2-3.9) gm/dL Albumin/Globulin Ratio 1.0 (1.0-2.1) Amylase 355 H D (30-110) U/L Lipase 1213 H (23-300) U/L Urine Color Yellow (YELLOW) Urine Clarity Clear (Clear) Urine pH 5.0 (5.0-8.0) Ur Specific [place] 1.025 (1.003-1.030) Urine Protein Negative (NEGATIVE) mg/dL Urine Glucose (UA) 3+ H (Normal) mg/dL Urine Ketones 2+ H (NEGATIVE) mg/dL Urine Blood Negative (NEGATIVE) Urine Nitrate Negative (NEGATIVE) Urine Bilirubin Negative (NEGATIVE) Urine Urobilinogen Normal (0.2-1.0) mg/dL Ur Leukocyte Esterase Neg (Negative) [place]/uL Urine WBC (Auto) < 1 (0-5) /hpf Urine RBC (Auto) < 1 (0-3) /hpf Serum Ketones Small (NEGATIVE) 06/25/16 06/25/16 06/25/16 Range/Units 08:06 06:55 06:11 WBC (4.8-10.8) K/uL RBC (4.40-5.90) Mil/uL Hgb (12.0-18.0) g/dL Hct (35.0-51.0) % MCV (80.0-94.0) fL MCH (27.0-31.0) pg MCHC (33.0-37.0) g/dL RDW (11.5-14.5) % Plt Count (130-400) K/uL MPV (7.2-11.7) fL Neut % (Auto) (50.0-75.0) % Lymph % (Auto) (20.0-40.0) % Becker % (Auto) (0.0-10.0) % Eos % (Auto) (0.0-4.0) % Baso % (Auto) (0.0-2.0) % Neut # (1.8-7.0) K/uL Lymph # (1.0-4.3) K/uL Becker # (0.0-0.8) K/uL Eos # (0.0-0.7) K/uL Baso # (0.0-0.2) K/uL Sodium (132-148) mmol/L Potassium (3.6-5.2) mmol/L Chloride (98-107) mmol/L Carbon Dioxide (22-30) mmol/L Anion Gap (10-20) BUN (9-20) mg/dL Creatinine (0.8-1.5) MG/DL Est GFR ( Amer) Est GFR (Non-Af Amer) POC Glucose (mg/dL) 209 H 184 H 199 H (65-110) mg/dL Random Glucose (75-110) mg/dL Calcium (8.6-10.4) mg/dl Phosphorus (2.5-4.5) mg/dL Magnesium (1.6-2.3) mg/dL Total Bilirubin (0.2-1.3) mg/dL AST (17-59) U/L ALT (21-72) U/L Alkaline Phosphatase (38-126) U/L Total Protein (6.3-8.3) g/dL Albumin (3.5-5.0) g/dL Globulin (2.2-3.9) gm/dL Albumin/Globulin Ratio (1.0-2.1) Amylase (30-110) U/L Lipase (23-300) U/L Urine Color (YELLOW) Urine Clarity (Clear) Urine pH (5.0-8.0) Ur Specific [place] (1.003-1.030) Urine Protein (NEGATIVE) mg/dL Urine Glucose (UA) (Normal) mg/dL Urine Ketones (NEGATIVE) mg/dL Urine Blood (NEGATIVE) Urine Nitrate (NEGATIVE) Urine Bilirubin (NEGATIVE) Urine Urobilinogen (0.2-1.0) mg/dL Ur Leukocyte Esterase (Negative) [place]/uL Urine WBC (Auto) (0-5) /hpf Urine RBC (Auto) (0-3) /hpf Serum Ketones (NEGATIVE) 06/25/16 06/25/16 06/25/16 Range/Units 06:08 05:09 04:05 WBC 7.2 (4.8-10.8) K/uL RBC 5.05 (4.40-5.90) Mil/uL Hgb 13.9 D (12.0-18.0) g/dL Hct 41.2 (35.0-51.0) % MCV 81.7 (80.0-94.0) fL MCH 27.6 (27.0-31.0) pg MCHC 33.8 (33.0-37.0) g/dL RDW 14.1 (11.5-14.5) % Plt Count 171 (130-400) K/uL MPV 7.7 (7.2-11.7) fL Neut % (Auto) 66.9 (50.0-75.0) % Lymph % (Auto) 23.3 (20.0-40.0) % Becker % (Auto) 8.4 (0.0-10.0) % Eos % (Auto) 0.6 (0.0-4.0) % Baso % (Auto) 0.8 (0.0-2.0) % Neut # 4.8 (1.8-7.0) K/uL Lymph # 1.7 (1.0-4.3) K/uL Becker # 0.6 (0.0-0.8) K/uL Eos # 0.0 (0.0-0.7) K/uL Baso # 0.1 (0.0-0.2) K/uL Sodium 137 (132-148) mmol/L Potassium 3.6 (3.6-5.2) mmol/L Chloride 108 H (98-107) mmol/L Carbon Dioxide 13 L (22-30) mmol/L Anion Gap 20 (10-20) BUN 8 L (9-20) mg/dL Creatinine 0.7 L (0.8-1.5) MG/DL Est GFR ( Amer) > 60 Est GFR (Non-Af Amer) > 60 POC Glucose (mg/dL) 174 H 198 H (65-110) mg/dL Random Glucose 184 H (75-110) mg/dL Calcium 7.8 L (8.6-10.4) mg/dl Phosphorus 2.0 L (2.5-4.5) mg/dL Magnesium 1.7 (1.6-2.3) mg/dL Total Bilirubin 0.5 (0.2-1.3) mg/dL AST 15 L (17-59) U/L ALT 17 L (21-72) U/L Alkaline Phosphatase 62 (38-126) U/L Total Protein 5.3 L (6.3-8.3) g/dL Albumin 2.7 L (3.5-5.0) g/dL Globulin 2.6 (2.2-3.9) gm/dL Albumin/Globulin Ratio 1.0 (1.0-2.1) Amylase (30-110) U/L Lipase (23-300) U/L Urine Color (YELLOW) Urine Clarity (Clear) Urine pH (5.0-8.0) Ur Specific [place] (1.003-1.030) Urine Protein (NEGATIVE) mg/dL Urine Glucose (UA) (Normal) mg/dL Urine Ketones (NEGATIVE) mg/dL Urine Blood (NEGATIVE) Urine Nitrate (NEGATIVE) Urine Bilirubin (NEGATIVE) Urine Urobilinogen (0.2-1.0) mg/dL Ur Leukocyte Esterase (Negative) [place]/uL Urine WBC (Auto) (0-5) /hpf Urine RBC (Auto) (0-3) /hpf Serum Ketones (NEGATIVE) 06/25/16 06/25/16 06/25/16 Range/Units 03:05 02:07 00:51 WBC (4.8-10.8) K/uL RBC (4.40-5.90) Mil/uL Hgb (12.0-18.0) g/dL Hct (35.0-51.0) % MCV (80.0-94.0) fL MCH (27.0-31.0) pg MCHC (33.0-37.0) g/dL RDW (11.5-14.5) % Plt Count (130-400) K/uL MPV (7.2-11.7) fL Neut % (Auto) (50.0-75.0) % Lymph % (Auto) (20.0-40.0) % Becker % (Auto) (0.0-10.0) % Eos % (Auto) (0.0-4.0) % Baso % (Auto) (0.0-2.0) % Neut # (1.8-7.0) K/uL Lymph # (1.0-4.3) K/uL Becker # (0.0-0.8) K/uL Eos # (0.0-0.7) K/uL Baso # (0.0-0.2) K/uL Sodium (132-148) mmol/L Potassium (3.6-5.2) mmol/L Chloride (98-107) mmol/L Carbon Dioxide (22-30) mmol/L Anion Gap (10-20) BUN (9-20) mg/dL Creatinine (0.8-1.5) MG/DL Est GFR ( Amer) Est GFR (Non-Af Amer) POC Glucose (mg/dL) 155 H 177 H 188 H (65-110) mg/dL Random Glucose (75-110) mg/dL Calcium (8.6-10.4) mg/dl Phosphorus (2.5-4.5) mg/dL Magnesium (1.6-2.3) mg/dL Total Bilirubin (0.2-1.3) mg/dL AST (17-59) U/L ALT (21-72) U/L Alkaline Phosphatase (38-126) U/L Total Protein (6.3-8.3) g/dL Albumin (3.5-5.0) g/dL Globulin (2.2-3.9) gm/dL Albumin/Globulin Ratio (1.0-2.1) Amylase (30-110) U/L Lipase (23-300) U/L Urine Color (YELLOW) Urine Clarity (Clear) Urine pH (5.0-8.0) Ur Specific [place] (1.003-1.030) Urine Protein (NEGATIVE) mg/dL Urine Glucose (UA) (Normal) mg/dL Urine Ketones (NEGATIVE) mg/dL Urine Blood (NEGATIVE) Urine Nitrate (NEGATIVE) Urine Bilirubin (NEGATIVE) Urine Urobilinogen (0.2-1.0) mg/dL Ur Leukocyte Esterase (Negative) [place]/uL Urine WBC (Auto) (0-5) /hpf Urine RBC (Auto) (0-3) /hpf Serum Ketones (NEGATIVE) 06/24/16 06/24/16 06/24/16 Range/Units 23:40 22:59 22:32 WBC (4.8-10.8) K/uL RBC (4.40-5.90) Mil/uL Hgb (12.0-18.0) g/dL Hct (35.0-51.0) % MCV (80.0-94.0) fL MCH (27.0-31.0) pg MCHC (33.0-37.0) g/dL RDW (11.5-14.5) % Plt Count (130-400) K/uL MPV (7.2-11.7) fL Neut % (Auto) (50.0-75.0) % Lymph % (Auto) (20.0-40.0) % Becker % (Auto) (0.0-10.0) % Eos % (Auto) (0.0-4.0) % Baso % (Auto) (0.0-2.0) % Neut # (1.8-7.0) K/uL Lymph # (1.0-4.3) K/uL Becker # (0.0-0.8) K/uL Eos # (0.0-0.7) K/uL Baso # (0.0-0.2) K/uL Sodium 134 (132-148) mmol/L Potassium 3.4 L (3.6-5.2) mmol/L Chloride 106 (98-107) mmol/L Carbon Dioxide 11 L* (22-30) mmol/L Anion Gap 20 (10-20) BUN 9 (9-20) mg/dL Creatinine 0.7 L (0.8-1.5) MG/DL Est GFR ( Amer) > 60 Est GFR (Non-Af Amer) > 60 POC Glucose (mg/dL) 200 H 216 H (65-110) mg/dL Random Glucose 208 H (75-110) mg/dL Calcium 7.7 L (8.6-10.4) mg/dl Phosphorus (2.5-4.5) mg/dL Magnesium (1.6-2.3) mg/dL Total Bilirubin 0.5 (0.2-1.3) mg/dL AST 18 (17-59) U/L ALT 17 L D (21-72) U/L Alkaline Phosphatase 64 (38-126) U/L Total Protein 5.4 L (6.3-8.3) g/dL Albumin 2.8 L (3.5-5.0) g/dL Globulin 2.6 (2.2-3.9) gm/dL Albumin/Globulin Ratio 1.1 (1.0-2.1) Amylase (30-110) U/L Lipase (23-300) U/L Urine Color (YELLOW) Urine Clarity (Clear) Urine pH (5.0-8.0) Ur Specific [place] (1.003-1.030) Urine Protein (NEGATIVE) mg/dL Urine Glucose (UA) (Normal) mg/dL Urine Ketones (NEGATIVE) mg/dL Urine Blood (NEGATIVE) Urine Nitrate (NEGATIVE) Urine Bilirubin (NEGATIVE) Urine Urobilinogen (0.2-1.0) mg/dL Ur Leukocyte Esterase (Negative) [place]/uL Urine WBC (Auto) (0-5) /hpf Urine RBC (Auto) (0-3) /hpf Serum Ketones (NEGATIVE) 06/24/16 06/24/16 06/24/16 Range/Units 22:14 21:08 20:05 WBC (4.8-10.8) K/uL RBC (4.40-5.90) Mil/uL Hgb (12.0-18.0) g/dL Hct (35.0-51.0) % MCV (80.0-94.0) fL MCH (27.0-31.0) pg MCHC (33.0-37.0) g/dL RDW (11.5-14.5) % Plt Count (130-400) K/uL MPV (7.2-11.7) fL Neut % (Auto) (50.0-75.0) % Lymph % (Auto) (20.0-40.0) % Becker % (Auto) (0.0-10.0) % Eos % (Auto) (0.0-4.0) % Baso % (Auto) (0.0-2.0) % Neut # (1.8-7.0) K/uL Lymph # (1.0-4.3) K/uL Becker # (0.0-0.8) K/uL Eos # (0.0-0.7) K/uL Baso # (0.0-0.2) K/uL Sodium (132-148) mmol/L Potassium (3.6-5.2) mmol/L Chloride (98-107) mmol/L Carbon Dioxide (22-30) mmol/L Anion Gap (10-20) BUN (9-20) mg/dL Creatinine (0.8-1.5) MG/DL Est GFR ( Amer) Est GFR (Non-Af Amer) POC Glucose (mg/dL) 230 H 225 H 232 H (65-110) mg/dL Random Glucose (75-110) mg/dL Calcium (8.6-10.4) mg/dl Phosphorus (2.5-4.5) mg/dL Magnesium (1.6-2.3) mg/dL Total Bilirubin (0.2-1.3) mg/dL AST (17-59) U/L ALT (21-72) U/L Alkaline Phosphatase (38-126) U/L Total Protein (6.3-8.3) g/dL Albumin (3.5-5.0) g/dL Globulin (2.2-3.9) gm/dL Albumin/Globulin Ratio (1.0-2.1) Amylase (30-110) U/L Lipase (23-300) U/L Urine Color (YELLOW) Urine Clarity (Clear) Urine pH (5.0-8.0) Ur Specific [place] (1.003-1.030) Urine Protein (NEGATIVE) mg/dL Urine Glucose (UA) (Normal) mg/dL Urine Ketones (NEGATIVE) mg/dL Urine Blood (NEGATIVE) Urine Nitrate (NEGATIVE) Urine Bilirubin (NEGATIVE) Urine Urobilinogen (0.2-1.0) mg/dL Ur Leukocyte Esterase (Negative) [place]/uL Urine WBC (Auto) (0-5) /hpf Urine RBC (Auto) (0-3) /hpf Serum Ketones (NEGATIVE) Laboratory Results - last 24 hr 06/24/16 06/24/16 06/24/16 20:05 21:08 22:14 WBC RBC Hgb Hct MCV MCH MCHC RDW Plt Count MPV Neut % (Auto) Lymph % (Auto) Becker % (Auto) Eos % (Auto) Baso % (Auto) Neut # Lymph # Becker # Eos # Baso # Sodium Potassium Chloride Carbon Dioxide Anion Gap BUN Creatinine Est GFR ( Amer) Est GFR (Non-Af Amer) POC Glucose (mg/dL) 232 H 225 H 230 H Random Glucose Calcium Phosphorus Magnesium Total Bilirubin AST ALT Alkaline Phosphatase Total Protein Albumin Globulin Albumin/Globulin Ratio Amylase Lipase Urine Color Urine Clarity Urine pH Ur Specific [place] Urine Protein Urine Glucose (UA) Urine Ketones Urine Blood Urine Nitrate Urine Bilirubin Urine Urobilinogen Ur Leukocyte Esterase Urine WBC (Auto) Urine RBC (Auto) Serum Ketones 06/24/16 06/24/16 06/24/16 22:32 22:59 23:40 WBC RBC Hgb Hct MCV MCH MCHC RDW Plt Count MPV Neut % (Auto) Lymph % (Auto) Becker % (Auto) Eos % (Auto) Baso % (Auto) Neut # Lymph # Becker # Eos # Baso # Sodium 134 Potassium 3.4 L Chloride 106 Carbon Dioxide 11 L* Anion Gap 20 BUN 9 Creatinine 0.7 L Est GFR ( Amer) > 60 Est GFR (Non-Af Amer) > 60 POC Glucose (mg/dL) 216 H 200 H Random Glucose 208 H Calcium 7.7 L Phosphorus Magnesium Total Bilirubin 0.5 AST 18 ALT 17 L D Alkaline Phosphatase 64 Total Protein 5.4 L Albumin 2.8 L Globulin 2.6 Albumin/Globulin Ratio 1.1 Amylase Lipase Urine Color Urine Clarity Urine pH Ur Specific [place] Urine Protein Urine Glucose (UA) Urine Ketones Urine Blood Urine Nitrate Urine Bilirubin Urine Urobilinogen Ur Leukocyte Esterase Urine WBC (Auto) Urine RBC (Auto) Serum Ketones 06/25/16 06/25/16 06/25/16 00:51 02:07 03:05 WBC RBC Hgb Hct MCV MCH MCHC RDW Plt Count MPV Neut % (Auto) Lymph % (Auto) Becker % (Auto) Eos % (Auto) Baso % (Auto) Neut # Lymph # Becker # Eos # Baso # Sodium Potassium Chloride Carbon Dioxide Anion Gap BUN Creatinine Est GFR ( Amer) Est GFR (Non-Af Amer) POC Glucose (mg/dL) 188 H 177 H 155 H Random Glucose Calcium Phosphorus Magnesium Total Bilirubin AST ALT Alkaline Phosphatase Total Protein Albumin Globulin Albumin/Globulin Ratio Amylase Lipase Urine Color Urine Clarity Urine pH Ur Specific [place] Urine Protein Urine Glucose (UA) Urine Ketones Urine Blood Urine Nitrate Urine Bilirubin Urine Urobilinogen Ur Leukocyte Esterase Urine WBC (Auto) Urine RBC (Auto) Serum Ketones 06/25/16 06/25/16 06/25/16 04:05 05:09 06:08 WBC 7.2 RBC 5.05 Hgb 13.9 D Hct 41.2 MCV 81.7 MCH 27.6 MCHC 33.8 RDW 14.1 Plt Count 171 MPV 7.7 Neut % (Auto) 66.9 Lymph % (Auto) 23.3 Becker % (Auto) 8.4 Eos % (Auto) 0.6 Baso % (Auto) 0.8 Neut # 4.8 Lymph # 1.7 Becker # 0.6 Eos # 0.0 Baso # 0.1 Sodium 137 Potassium 3.6 Chloride 108 H Carbon Dioxide 13 L Anion Gap 20 BUN 8 L Creatinine 0.7 L Est GFR ( Amer) > 60 Est GFR (Non-Af Amer) > 60 POC Glucose (mg/dL) 198 H 174 H Random Glucose 184 H Calcium 7.8 L Phosphorus 2.0 L Magnesium 1.7 Total Bilirubin 0.5 AST 15 L ALT 17 L Alkaline Phosphatase 62 Total Protein 5.3 L Albumin 2.7 L Globulin 2.6 Albumin/Globulin Ratio 1.0 Amylase Lipase Urine Color Urine Clarity Urine pH Ur Specific [place] Urine Protein Urine Glucose (UA) Urine Ketones Urine Blood Urine Nitrate Urine Bilirubin Urine Urobilinogen Ur Leukocyte Esterase Urine WBC (Auto) Urine RBC (Auto) Serum Ketones 06/25/16 06/25/16 06/25/16 06:11 06:55 08:06 WBC RBC Hgb Hct MCV MCH MCHC RDW Plt Count MPV Neut % (Auto) Lymph % (Auto) Becker % (Auto) Eos % (Auto) Baso % (Auto) Neut # Lymph # Becker # Eos # Baso # Sodium Potassium Chloride Carbon Dioxide Anion Gap BUN Creatinine Est GFR ( Amer) Est GFR (Non-Af Amer) POC Glucose (mg/dL) 199 H 184 H 209 H Random Glucose Calcium Phosphorus Magnesium Total Bilirubin AST ALT Alkaline Phosphatase Total Protein Albumin Globulin Albumin/Globulin Ratio Amylase Lipase Urine Color Urine Clarity Urine pH Ur Specific [place] Urine Protein Urine Glucose (UA) Urine Ketones Urine Blood Urine Nitrate Urine Bilirubin Urine Urobilinogen Ur Leukocyte Esterase Urine WBC (Auto) Urine RBC (Auto) Serum Ketones 06/25/16 06/25/16 06/25/16 09:14 10:15 10:33 WBC RBC Hgb Hct MCV MCH MCHC RDW Plt Count MPV Neut % (Auto) Lymph % (Auto) Becker % (Auto) Eos % (Auto) Baso % (Auto) Neut # Lymph # Becker # Eos # Baso # Sodium 134 Potassium 3.6 Chloride 104 Carbon Dioxide 12 L Anion Gap 22 H BUN 7 L Creatinine 0.7 L Est GFR ( Amer) > 60 Est GFR (Non-Af Amer) > 60 POC Glucose (mg/dL) 187 H 203 H Random Glucose 220 H Calcium 7.9 L Phosphorus Magnesium Total Bilirubin 0.7 AST 17 ALT 20 L Alkaline Phosphatase 68 Total Protein 5.6 L Albumin 2.9 L Globulin 2.8 Albumin/Globulin Ratio 1.0 Amylase 355 H D Lipase 1213 H Urine Color Yellow Urine Clarity Clear Urine pH 5.0 Ur Specific [place] 1.025 Urine Protein Negative Urine Glucose (UA) 3+ H Urine Ketones 2+ H Urine Blood Negative Urine Nitrate Negative Urine Bilirubin Negative Urine Urobilinogen Normal Ur Leukocyte Esterase Neg Urine WBC (Auto) < 1 Urine RBC (Auto) < 1 Serum Ketones Small 06/25/16 06/25/16 06/25/16 11:12 12:07 13:09 WBC RBC Hgb Hct MCV MCH MCHC RDW Plt Count MPV Neut % (Auto) Lymph % (Auto) Becker % (Auto) Eos % (Auto) Baso % (Auto) Neut # Lymph # Becker # Eos # Baso # Sodium Potassium Chloride Carbon Dioxide Anion Gap BUN Creatinine Est GFR ( Amer) Est GFR (Non-Af Amer) POC Glucose (mg/dL) 249 H 232 H 203 H Random Glucose Calcium Phosphorus Magnesium Total Bilirubin AST ALT Alkaline Phosphatase Total Protein Albumin Globulin Albumin/Globulin Ratio Amylase Lipase Urine Color Urine Clarity Urine pH Ur Specific [place] Urine Protein Urine Glucose (UA) Urine Ketones Urine Blood Urine Nitrate Urine Bilirubin Urine Urobilinogen Ur Leukocyte Esterase Urine WBC (Auto) Urine RBC (Auto) Serum Ketones 06/25/16 06/25/16 06/25/16 14:07 14:11 15:01 WBC RBC Hgb Hct MCV MCH MCHC RDW Plt Count MPV Neut % (Auto) Lymph % (Auto) Becker % (Auto) Eos % (Auto) Baso % (Auto) Neut # Lymph # Becker # Eos # Baso # Sodium 134 Potassium 3.4 L Chloride 105 Carbon Dioxide 17 L Anion Gap 15 BUN 7 L Creatinine 0.6 L Est GFR ( Amer) > 60 Est GFR (Non-Af Amer) > 60 POC Glucose (mg/dL) 184 H 226 H Random Glucose 176 H Calcium 8.0 L Phosphorus Magnesium Total Bilirubin AST ALT Alkaline Phosphatase Total Protein Albumin Globulin Albumin/Globulin Ratio Amylase Lipase Urine Color Urine Clarity Urine pH Ur Specific [place] Urine Protein Urine Glucose (UA) Urine Ketones Urine Blood Urine Nitrate Urine Bilirubin Urine Urobilinogen Ur Leukocyte Esterase Urine WBC (Auto) Urine RBC (Auto) Serum Ketones 06/25/16 06/25/16 06/25/16 16:04 16:52 18:02 WBC RBC Hgb Hct MCV MCH MCHC RDW Plt Count MPV Neut % (Auto) Lymph % (Auto) Becker % (Auto) Eos % (Auto) Baso % (Auto) Neut # Lymph # Becker # Eos # Baso # Sodium Potassium Chloride Carbon Dioxide Anion Gap BUN Creatinine Est GFR ( Amer) Est GFR (Non-Af Amer) POC Glucose (mg/dL) 194 H 197 H 194 H Random Glucose Calcium Phosphorus Magnesium Total Bilirubin AST ALT Alkaline Phosphatase Total Protein Albumin Globulin Albumin/Globulin Ratio Amylase Lipase Urine Color Urine Clarity Urine pH Ur Specific [place] Urine Protein Urine Glucose (UA) Urine Ketones Urine Blood Urine Nitrate Urine Bilirubin Urine Urobilinogen Ur Leukocyte Esterase Urine WBC (Auto) Urine RBC (Auto) Serum Ketones Critical Care Progress Note - Nutrition Nutrition: Nutrition Category Date Time Status NPO Diet [DIET] Diets 06/24/16 Breakfast Active Attending/Attestation - Attestation I have personally seen and examined this patient.: Yes I have fully participated in the care of the patient.: Yes I have reviewed all pertinent clinical information: Yes Notes (Text): 06/25/16 18:18 Patient seen and examined in the intensive care unit. Case discussed with resident in the morning around. Being treated for DKA Continue insulin drip and IV fluids Monitor anion gap treat hypokalemia
[2016-06-25] MEDS ORDERED: Potassium Chloride 20 mEq ER Tab PO STA (18:33)
[2016-06-25] MEDS ORDERED: (Novolog) Insulin Aspart, Recombinant 100 u/ml 10 ml vial SC SCH (19:00)
[2016-06-25] MEDS: (Lantus) Insulin Glargine, Recombinant SC SCH (21:53)
[2016-06-26 06:18] LABS: BASO % 0.8 % (0.0-2.0); EOS # 0.1 K/uL (0.0-0.7); HEMATOCRIT 40.5 % (35.0-51.0); LYMPH # 1.4 K/uL (1.0-4.3); LYMPH % 27.5 % (20.0-40.0); MEAN CELL VOLUME 80.7 fL (80.0-94.0); MEAN CORPUSCULAR HEMOGLOBIN 27.7 pg (27.0-31.0); MEAN CORPUSCULAR HGB CONC 34.3 g/dL (33.0-37.0); MONO # 0.5 K/uL (0.0-0.8); MONO % 8.9 % (0.0-10.0); NRBC % 0.1 % (0.0-2.0); RED CELL DISTRIBUTION WIDTH 13.9 % (11.5-14.5); WHITE BLOOD COUNT 5.2 K/uL (4.8-10.8)
[2016-06-26 06:26] LABS: CHLORIDE 104 mmol/L (98-107)
[2016-06-26 06:27] LABS: POTASSIUM 3.8 mmol/L (3.6-5.2); SODIUM 133 mmol/L (132-148)
[2016-06-26 06:29] LABS: ALKALINE PHOSPHATASE 66 U/L (38-126); ALT/SGPT 23 U/L (21-72); AST/SGOT 13 U/L (17-59); BLOOD UREA NITROGEN 8 mg/dL (9-20); GFR AFRICAN-AMERICAN > 60; TOTAL PROTEIN 5.7 g/dL (6.3-8.3)
[2016-06-26 06:30] LABS: CALCIUM 8.2 mg/dl (8.6-10.4); GLUCOSE,RANDOM 225 mg/dL (75-110); MAGNESIUM 1.7 mg/dL (1.6-2.3); PHOSPHOROUS 2.4 mg/dL (2.5-4.5)
[2016-06-26 06:44] LABS: CARBON DIOXIDE 11 mmol/L (22-30)
[2016-06-26 07:53] LABS: AMYLASE 178 U/L (30-110)
[2016-06-26] MEDS: (Novolog) Insulin Aspart, Recombinant 100 u/ml 10 ml vial SC SCH ×4 (08:10→21:43)
[2016-06-26] MEDS ORDERED: Potassium Phosphate 15 MMOLE in Sodium Chloride 0.9% 250 ML IVPB ONE (08:30)
[2016-06-26] MEDS: (Lantus) Insulin Glargine, Recombinant SC SCH ×2 (09:15→17:09)
[2016-06-26] MEDS: Enoxaparin 40 mg Syringe SC SCH (09:15)
[2016-06-26] MEDS ORDERED: Insulin Human Regular 100 UNIT in Sodium Chloride 0.9% 99 ML IV SCH ×2 (09:45→10:25)
--- NOTE | 2016-06-26 10:53 | CP.PCM.PN ---
<Sherin Meade - Last Filed: 06/26/16 11:03> Subjective - Date & Time of Evaluation Date of Evaluation: 06/26/16 Time of Evaluation: 10:50 - Subjective Subjective: Gastroenterology Fellow/PGY4 Prgoress Note Patient slept well overnight. Tolerated pudding yesterday evening. Resolution of epigastric pain. No bowel movement. A 12-point review of systems negative except for as above. Objective - Vital Signs/Intake and Output Vital Signs (last 24 hours): Temp Pulse Resp BP Pulse Ox 97.4 F L 87 18 100/31 L 99 06/26/16 08:00 06/26/16 09:00 06/26/16 09:00 06/26/16 08:59 06/26/16 09:00 Intake and Output: 06/26/16 06/26/16 06:59 18:59 Intake Total 870 400 Output Total 1100 350 Balance -230 50 - Medications Medications: Current Medications Acetaminophen (Tylenol 325mg Tab) 650 mg PO Q6 PRN PRN Reason: Headache Enoxaparin Sodium (Lovenox) 40 mg SC DAILY [facility] Last Admin: 06/26/16 09:15 Dose: 40 mg Famotidine (Pepcid) 20 mg PO Q12 [facility] Last Admin: 06/26/16 09:15 Dose: 20 mg Potassium Phosphate 15 mmole/ (Sodium Chloride) 255 mls @ 42.5 mls/hr IVPB ONCE ONE Stop: 06/26/16 14:29 Last Admin: 06/26/16 09:45 Dose: 42.5 mls/hr Insulin Human Regular 100 unit (/ Sodium Chloride) 100 mls @ 3 mls/hr IV .Q24H [facility] PRN Reason: Protocol Last Admin: 06/26/16 10:42 Dose: 3 mls/hr Insulin Aspart (Novolog) 0 unit SC ACHS [facility] PRN Reason: Protocol Last Admin: 06/26/16 08:10 Dose: 6 unit Insulin Glargine (Lantus) 20 unit SC BID [facility] Last Admin: 06/26/16 09:15 Dose: 20 u Morphine Sulfate (Morphine) 2 mg IVP Q4H PRN PRN Reason: Pain, moderate (4-7) Ondansetron HCl (Zofran Inj) 4 mg IVP Q6H PRN PRN Reason: Nausea/Vomiting - Labs Labs: 06/26/16 06:08 06/26/16 06:08 - Constitutional Appears: Non-toxic, No Acute Distress - Head Exam Head Exam: ATRAUMATIC, NORMOCEPHALIC - Eye Exam Eye Exam: EOMI, PERRL Pupil Exam: PERRL. absent: Miosis, Mydriatic - ENT Exam ENT Exam: Mucous Membranes Moist, Normal Oropharynx - Neck Exam Neck Exam: Full ROM, Normal Inspection - Respiratory Exam Respiratory Exam: Clear to Ausculation Bilateral. absent: Rales, Rhonchi, Wheezes - Cardiovascular Exam Cardiovascular Exam: RRR, +S1, +S2. absent: Gallop, Rubs - GI/Abdominal Exam GI & Abdominal Exam: Soft, Normal Bowel Sounds. absent: Distended, Firm, Guarding, Rigid, Tenderness, Organomegaly, Rebound - Extremities Exam Extremities Exam: Full ROM. absent: Pedal Edema - Neurological Exam Neurological Exam: Alert, Awake - Psychiatric Exam Psychiatric exam: Normal Affect, Normal Mood - Skin Skin Exam: Dry, Intact, Normal Color, Warm Assessment and Plan - Assessment and Plan (Free Text) Assessment: 46 year old male with history of Type I diabetes and Hypertension presenting with epigastric pain, nausea, and vomiting. Active treatment of diabetic ketoacidosis, acute mild pancreatitis, and renal insufficiency. CT A/P shows distal esophageal wall thickening and pancreatic edema/stranding/adenopathy. Family history of pancreatic cancer. No prior EGD or colonoscopy. DKA Acute mild pancreatitis Esophageal wall thickening Renal insufficiency, resolved Plan: >ICU managing DKA >supportive care: pain control, antiemetics >tolerating full liquids, advance as tolerated >Pancreatitits- DDx: DKA, drug induced-consider UDS, denies alcohol use, family history of pancreatic cancer -if symptoms recur or persist would consider further workup -no signs of biliary obstruction >monitor LFTs >will benefit from elective EGD to evaluate esophageal wall thickening, once medically optimized >further recommendations based on clinical course <Jaiem Collins - Last Filed: 06/26/16 11:40> Objective - Vital Signs/Intake and Output Vital Signs (last 24 hours): Temp Pulse Resp BP Pulse Ox 97.4 F L 87 18 100/31 L 99 06/26/16 08:00 06/26/16 09:00 06/26/16 09:00 06/26/16 08:59 06/26/16 09:00 Intake and Output: 06/26/16 06/26/16 06:59 18:59 Intake Total 870 400 Output Total 1100 350 Balance -230 50 - Medications Medications: Current Medications Acetaminophen (Tylenol 325mg Tab) 650 mg PO Q6 PRN PRN Reason: Headache Enoxaparin Sodium (Lovenox) 40 mg SC DAILY [facility] Last Admin: 06/26/16 09:15 Dose: 40 mg Famotidine (Pepcid) 20 mg PO Q12 [facility] Last Admin: 06/26/16 09:15 Dose: 20 mg Potassium Phosphate 15 mmole/ (Sodium Chloride) 255 mls @ 42.5 mls/hr IVPB ONCE ONE Stop: 06/26/16 14:29 Last Admin: 06/26/16 09:45 Dose: 42.5 mls/hr Insulin Human Regular 100 unit (/ Sodium Chloride) 100 mls @ 3 mls/hr IV .Q24H [facility] PRN Reason: Protocol Last Titration: 06/26/16 11:19 Dose: 2 ml/hr Insulin Aspart (Novolog) 0 unit SC ACHS [facility] PRN Reason: Protocol Last Admin: 06/26/16 08:10 Dose: 6 unit Insulin Glargine (Lantus) 20 unit SC BID [facility] Last Admin: 06/26/16 09:15 Dose: 20 u Morphine Sulfate (Morphine) 2 mg IVP Q4H PRN PRN Reason: Pain, moderate (4-7) Ondansetron HCl (Zofran Inj) 4 mg IVP Q6H PRN PRN Reason: Nausea/Vomiting - Labs Labs: 06/26/16 06:08 06/26/16 06:08 Attending/Attestation - Attestation I have personally seen and examined this patient.: Yes I have fully participated in the care of the patient.: Yes I have reviewed all pertinent clinical information, including history, physical exam and plan: Yes Notes (Text): Patient seen and examined with GI fellow. Agree with her note as documented above with the following additions/exceptions. This is a 46 year old male with history of type I DM, HTN who presents with abdominal pain, nausea and vomiting. He is found to have diabetic ketoacidosis and acute pancreatitis. His abdominal pain is resolved and he is tolerating diet. Abdominal CT showed distal esophageal wall thickening. Continue diabetes management as per primary team, endocrinology was consulted (previously gap closed, now 22). Pain control as needed. Consider dedicated pancreatic imaging in near future. The patient would ultimately benefit from EGD evaluation electively once medically stabilized. Will continue to follow and make recommendations depending on patient's clinical course. 06/26/16 11:36
[2016-06-26 14:40] LABS: CHLORIDE 100 mmol/L (98-107); POTASSIUM 3.9 mmol/L (3.6-5.2); SODIUM 132 mmol/L (132-148)
[2016-06-26 14:42] LABS: GFR AFRICAN-AMERICAN > 60
[2016-06-26 14:43] LABS: BLOOD UREA NITROGEN 11 mg/dL (9-20); CALCIUM 8.4 mg/dl (8.6-10.4); CARBON DIOXIDE 13 mmol/L (22-30); GLUCOSE,RANDOM 228 mg/dL (75-110)
[2016-06-26] MEDS ORDERED: Sodium Chloride 0.9% 1,000 ML IV SCH (15:00)
--- NOTE | 2016-06-26 17:04 | CP.PCM.PN ---
Subjective - Date & Time of Evaluation Date of Evaluation: 06/26/16 Time of Evaluation: 14:35 - Subjective Subjective: Medical attending note: Follow-up: DKA, acute pnacreatitis patient seen, examined and with dad at bedside. patient denies acute complaints. Patient reports he is feeling better but reports he is on insulin drip. Objective - Vital Signs/Intake and Output Vital Signs (last 24 hours): Temp Pulse Resp BP Pulse Ox 98.4 F 88 24 158/98 H 100 06/26/16 12:00 06/26/16 15:08 06/26/16 15:08 06/26/16 15:08 06/26/16 15:08 Intake and Output: 06/26/16 06/26/16 06:59 18:59 Intake Total 870 1679.5 Output Total 1100 1500 Balance -230 179.5 - Medications Medications: Current Medications Acetaminophen (Tylenol 325mg Tab) 650 mg PO Q6 PRN PRN Reason: Headache Enoxaparin Sodium (Lovenox) 40 mg SC DAILY [facility] Last Admin: 06/26/16 09:15 Dose: 40 mg Famotidine (Pepcid) 20 mg PO Q12 [facility] Last Admin: 06/26/16 09:15 Dose: 20 mg Insulin Human Regular 100 unit (/ Sodium Chloride) 100 mls @ 3 mls/hr IV .Q24H [facility] PRN Reason: Protocol Last Titration: 06/26/16 13:23 Dose: 3 ml/hr Sodium Chloride (Sodium Chloride 0.9%) 1,000 mls @ 100 mls/hr IV .Q10H [facility] Last Admin: 06/26/16 15:37 Dose: 100 mls/hr Insulin Aspart (Novolog) 0 unit SC ACHS [facility] PRN Reason: Protocol Last Admin: 06/26/16 11:36 Dose: Not Given Insulin Glargine (Lantus) 20 unit SC BID [facility] Last Admin: 06/26/16 09:15 Dose: 20 u Morphine Sulfate (Morphine) 2 mg IVP Q4H PRN PRN Reason: Pain, moderate (4-7) Ondansetron HCl (Zofran Inj) 4 mg IVP Q6H PRN PRN Reason: Nausea/Vomiting - Labs Labs: 06/26/16 06:08 06/26/16 14:25 - Constitutional Appears: Non-toxic, No Acute Distress - Head Exam Head Exam: NORMAL INSPECTION - Eye Exam Eye Exam: EOMI - ENT Exam ENT Exam: absent: Mucous Membranes Moist - Respiratory Exam Respiratory Exam: Clear to Ausculation Bilateral, NORMAL BREATHING PATTERN - Cardiovascular Exam Cardiovascular Exam: REGULAR RHYTHM, +S1, +S2 - GI/Abdominal Exam GI & Abdominal Exam: Soft, Normal Bowel Sounds Additional comments: nontender, no rebound, no guarding, BS X4 - Neurological Exam Neurological Exam: Alert, Awake, Oriented x3 - Psychiatric Exam Psychiatric exam: Normal Affect, Normal Mood - Skin Skin Exam: Cyanosis, Dry, Warm Assessment and Plan (1) DKA (diabetic ketoacidosis) Status: Acute (2) Acute pancreatitis Status: Acute (3) Abdominal pain Status: Acute (4) Abnormal urinalysis Status: Acute (5) Prophylactic measure Status: Acute - Assessment and Plan (Free Text) Assessment: Assessment and Plan (1) DKA (diabetic ketoacidosis) Assessment & Plan: D51/2NS 40 KCL meq Insulin drip restarted anion gap increased a1c: 12 Accuchecks Q 6 hours tolerating pudding Endocrinology consult pending Status: Acute (2) Acute pancreatitis Assessment & Plan: Ct abdomen (06/25/16): peripancreatic inflammatory stranding, peripancreatic adenopathy, and mild pancreatic edema consistent with acute pancreatitis. Small hiatal hernia/distal esophageal wall thicking and evidence of gastroesophageal reflux. Recommend further evaluation with endoscopy given prominent distal esophageal wall thickening of unclear significance. Ab US (06/25/16): diffuse increased echogenicity in the liver may reflex hepatic statosis however, parenchymal infectious/inflammatory etiology cannot be entirely excluded. No evidence of cholelithiasis or biliary dilatation. Gi (Dr. Xiao): on board Per GI:w ould ultimately benefit from EGD evaluation of esophageal wall thickening, which can be arranged non emergently after resolution of acute medical issues and possible pancreatic imaging Status: Acute (3) Abdominal pain Assessment & Plan: resolved Status: Acute (4) Abnormal urinalysis Assessment & Plan: repeat UA showing glucose and ketones Status: Acute (5) Prophylactic measure Assessment & Plan: Pepcid 20mg IV Q 12hours for GI ppx Lovenox 40mg subq for DVT ppx
--- NOTE | 2016-06-26 17:46 | CP.CCUPN ---
<MonserratToshiabladimirvero - Last Filed: 06/26/16 18:05> CCU Subjective - Physician Review Subjective (Free Text): 06/24/16 17:54 Patient seen and examined at bedside. No additional acute events overnight per nursing. Pt states his abdominal pain has resolved and he is feeling better. Patient urinating without problems. Patient denies chest pain, shortness of breath, nausea, vomiting, diarrhea, headaches, paresthesias, abdominal pain at this time. 06/25/16 14:50 Patient seen and examined in no acute distress. No events overnight per nursing. Pt inquired about his medical course thus far which was explained to him. Patient states that he would like to eat. He is urinating without complaints. He denies headaches, subjective fevers or chills, nausea, vomiting, diarrhea, chest pain, abdominal pain at this point. 06/26/16 17:44 Patient seen and examined at bedside. No acute events overnight per nursing. Pt is tolerating diet, denies abdominal pain. Increase in anion gap and thus insulin drip restarted. He denies headaches, subjective fevers or chills, nausea , vomiting, diarrhea, chest pain, palpitations, paresthesias or abdominal pain at this point. CCU Objective - Vital Signs / Intake & Output Vital Signs (Last 4 hours): Vital Signs Pulse Resp BP Pulse Ox 06/26/16 15:08 88 24 158/98 H 100 06/26/16 14:59 93 H 26 H 241/142 H 99 06/26/16 14:00 94 H 38 H 99 Intake and Output (Last 8hrs): Intake & Output 06/26/16 06/26/16 06/26/16 06:59 14:59 22:59 Intake Total 480 1576.5 103 Output Total 900 1500 0 Balance -420 76.5 103 Intake: Intake, IV Amount 226.5 103 Left Forearm 212.5 100 left forearm y port 14 3 Oral 480 1350 0 Output: Urine 900 1500 0 Urine, Voided 900 1500 0 Other: # Voids Urine, Voided 1 - Physical Exam Head: Positive for: Atraumatic, Normocephalic Pupils: Positive for: PERRL Extroacular Muscles: Positive for: EOMI Conjunctiva: Positive for: Normal Mouth: Positive for: Moist Mucous Membranes Nose (External): Negative for: Atraumatic, Abrasion Nose (Internal): Positive for: Normal Inspection Neck: Positive for: Normal Range of Motion Respiratory/Chest: Positive for: Clear to Auscultation. Negative for: Wheezes Cardiovascular: Positive for: Regular Rate and Rhythm, Normal S1, S2 Abdomen: Positive for: Normal Bowel Sounds. Negative for: Tenderness, Peritoneal Signs, McBurney's Point Tender, Rovsing's Sign Present, Hernias Back: Positive for: Normal Inspection Upper Extremity: Positive for: Normal Inspection, Normal ROM. Negative for: Edema Lower Extremity: Positive for: Normal Inspection. Negative for: CALF TENDERNESS Neurological: Positive for: CN II-XII Intact, Speech Normal, Normal Sensory Function Skin: Positive for: Warm, Dry, Normal Color Psychiatric: Positive for: Alert, Oriented x 3, Normal Insight, Normal Concentration, Normal Affect, Normal Mood - Medications Active Medications: Active Medications Generic Name Dose Route Start Last Admin Trade Name Freq PRN Reason Stop Dose Admin Acetaminophen 650 mg 06/23/16 20:21 Tylenol 325mg Tab PO Q6 PRN Headache Enoxaparin Sodium 40 mg 06/24/16 10:00 06/26/16 09:15 Lovenox SC 40 mg DAILY KIM Administration Famotidine 20 mg 06/23/16 22:00 06/26/16 09:15 Pepcid PO 20 mg Q12 KIM Administration Insulin Human Regular 100 unit 100 mls @ 3 mls/hr 06/26/16 10:25 06/26/16 17:04 / Sodium Chloride IV 2 ml/hr .Q24H KIM Titration Protocol Sodium Chloride 1,000 mls @ 100 mls/hr 06/26/16 15:00 06/26/16 15:37 Sodium Chloride 0.9% IV 100 mls/hr .Q10H KIM Administration Insulin Aspart 0 unit 06/26/16 07:30 06/26/16 17:04 Novolog SC Not Given ACHS KIM Protocol Insulin Glargine 20 unit 06/25/16 22:00 06/26/16 17:09 Lantus SC 20 u BID KIM Administration Morphine Sulfate 2 mg 06/23/16 20:09 Morphine IVP Q4H PRN Pain, moderate (4-7) Ondansetron HCl 4 mg 06/23/16 20:09 Zofran Inj IVP Q6H PRN Nausea/Vomiting - Patient Studies Lab Studies: Lab Studies 06/26/16 06/26/16 06/26/16 Range/Units 17:02 16:03 15:15 WBC (4.8-10.8) K/uL RBC (4.40-5.90) Mil/uL Hgb (12.0-18.0) g/dL Hct (35.0-51.0) % MCV (80.0-94.0) fL MCH (27.0-31.0) pg MCHC (33.0-37.0) g/dL RDW (11.5-14.5) % Plt Count (130-400) K/uL MPV (7.2-11.7) fL Neut % (Auto) (50.0-75.0) % Lymph % (Auto) (20.0-40.0) % [place] % (Auto) (0.0-10.0) % Eos % (Auto) (0.0-4.0) % Baso % (Auto) (0.0-2.0) % Neut # (1.8-7.0) K/uL Lymph # (1.0-4.3) K/uL [place] # (0.0-0.8) K/uL Eos # (0.0-0.7) K/uL Baso # (0.0-0.2) K/uL Sodium (132-148) mmol/L Potassium (3.6-5.2) mmol/L Chloride (98-107) mmol/L Carbon Dioxide (22-30) mmol/L Anion Gap (10-20) BUN (9-20) mg/dL Creatinine (0.8-1.5) MG/DL Est GFR ( Amer) Est GFR (Non-Af Amer) POC Glucose (mg/dL) 183 H 206 H 201 H (65-110) mg/dL Random Glucose (75-110) mg/dL Calcium (8.6-10.4) mg/dl Phosphorus (2.5-4.5) mg/dL Magnesium (1.6-2.3) mg/dL Total Bilirubin (0.2-1.3) mg/dL AST (17-59) U/L ALT (21-72) U/L Alkaline Phosphatase (38-126) U/L Total Protein (6.3-8.3) g/dL Albumin (3.5-5.0) g/dL Globulin (2.2-3.9) gm/dL Albumin/Globulin Ratio (1.0-2.1) Amylase (30-110) U/L Lipase (23-300) U/L Serum Ketones (NEGATIVE) 06/26/16 06/26/16 06/26/16 Range/Units 14:25 14:04 13:10 WBC (4.8-10.8) K/uL RBC (4.40-5.90) Mil/uL Hgb (12.0-18.0) g/dL Hct (35.0-51.0) % MCV (80.0-94.0) fL MCH (27.0-31.0) pg MCHC (33.0-37.0) g/dL RDW (11.5-14.5) % Plt Count (130-400) K/uL MPV (7.2-11.7) fL Neut % (Auto) (50.0-75.0) % Lymph % (Auto) (20.0-40.0) % [place] % (Auto) (0.0-10.0) % Eos % (Auto) (0.0-4.0) % Baso % (Auto) (0.0-2.0) % Neut # (1.8-7.0) K/uL Lymph # (1.0-4.3) K/uL [place] # (0.0-0.8) K/uL Eos # (0.0-0.7) K/uL Baso # (0.0-0.2) K/uL Sodium 132 (132-148) mmol/L Potassium 3.9 (3.6-5.2) mmol/L Chloride 100 (98-107) mmol/L Carbon Dioxide 13 L (22-30) mmol/L Anion Gap 23 H (10-20) BUN 11 (9-20) mg/dL Creatinine 0.7 L (0.8-1.5) MG/DL Est GFR ( Amer) > 60 Est GFR (Non-Af Amer) > 60 POC Glucose (mg/dL) 243 H 201 H (65-110) mg/dL Random Glucose 228 H (75-110) mg/dL Calcium 8.4 L (8.6-10.4) mg/dl Phosphorus (2.5-4.5) mg/dL Magnesium (1.6-2.3) mg/dL Total Bilirubin (0.2-1.3) mg/dL AST (17-59) U/L ALT (21-72) U/L Alkaline Phosphatase (38-126) U/L Total Protein (6.3-8.3) g/dL Albumin (3.5-5.0) g/dL Globulin (2.2-3.9) gm/dL Albumin/Globulin Ratio (1.0-2.1) Amylase (30-110) U/L Lipase (23-300) U/L Serum Ketones (NEGATIVE) 06/26/16 06/26/16 06/26/16 Range/Units 12:02 11:06 10:02 WBC (4.8-10.8) K/uL RBC (4.40-5.90) Mil/uL Hgb (12.0-18.0) g/dL Hct (35.0-51.0) % MCV (80.0-94.0) fL MCH (27.0-31.0) pg MCHC (33.0-37.0) g/dL RDW (11.5-14.5) % Plt Count (130-400) K/uL MPV (7.2-11.7) fL Neut % (Auto) (50.0-75.0) % Lymph % (Auto) (20.0-40.0) % [place] % (Auto) (0.0-10.0) % Eos % (Auto) (0.0-4.0) % Baso % (Auto) (0.0-2.0) % Neut # (1.8-7.0) K/uL Lymph # (1.0-4.3) K/uL [place] # (0.0-0.8) K/uL Eos # (0.0-0.7) K/uL Baso # (0.0-0.2) K/uL Sodium (132-148) mmol/L Potassium (3.6-5.2) mmol/L Chloride (98-107) mmol/L Carbon Dioxide (22-30) mmol/L Anion Gap (10-20) BUN (9-20) mg/dL Creatinine (0.8-1.5) MG/DL Est GFR ( Amer) Est GFR (Non-Af Amer) POC Glucose (mg/dL) 151 H 163 H 213 H (65-110) mg/dL Random Glucose (75-110) mg/dL Calcium (8.6-10.4) mg/dl Phosphorus (2.5-4.5) mg/dL Magnesium (1.6-2.3) mg/dL Total Bilirubin (0.2-1.3) mg/dL AST (17-59) U/L ALT (21-72) U/L Alkaline Phosphatase (38-126) U/L Total Protein (6.3-8.3) g/dL Albumin (3.5-5.0) g/dL Globulin (2.2-3.9) gm/dL Albumin/Globulin Ratio (1.0-2.1) Amylase (30-110) U/L Lipase (23-300) U/L Serum Ketones (NEGATIVE) 06/26/16 06/26/16 06/25/16 Range/Units 07:59 06:08 23:44 WBC 5.2 (4.8-10.8) K/uL RBC 5.02 (4.40-5.90) Mil/uL Hgb 13.9 (12.0-18.0) g/dL Hct 40.5 (35.0-51.0) % MCV 80.7 (80.0-94.0) fL MCH 27.7 (27.0-31.0) pg MCHC 34.3 (33.0-37.0) g/dL RDW 13.9 (11.5-14.5) % Plt Count 140 (130-400) K/uL MPV 8.0 (7.2-11.7) fL Neut % (Auto) 61.8 (50.0-75.0) % Lymph % (Auto) 27.5 (20.0-40.0) % [place] % (Auto) 8.9 (0.0-10.0) % Eos % (Auto) 1.0 (0.0-4.0) % Baso % (Auto) 0.8 (0.0-2.0) % Neut # 3.2 (1.8-7.0) K/uL Lymph # 1.4 (1.0-4.3) K/uL [place] # 0.5 (0.0-0.8) K/uL Eos # 0.1 (0.0-0.7) K/uL Baso # 0.0 (0.0-0.2) K/uL Sodium 133 (132-148) mmol/L Potassium 3.8 (3.6-5.2) mmol/L Chloride 104 (98-107) mmol/L Carbon Dioxide 11 L* D (22-30) mmol/L Anion Gap 22 H (10-20) BUN 8 L (9-20) mg/dL Creatinine 0.6 L (0.8-1.5) MG/DL Est GFR ( Amer) > 60 Est GFR (Non-Af Amer) > 60 POC Glucose (mg/dL) 235 H 174 H (65-110) mg/dL Random Glucose 225 H (75-110) mg/dL Calcium 8.2 L (8.6-10.4) mg/dl Phosphorus 2.4 L (2.5-4.5) mg/dL Magnesium 1.7 (1.6-2.3) mg/dL Total Bilirubin 1.0 (0.2-1.3) mg/dL AST 13 L D (17-59) U/L ALT 23 (21-72) U/L Alkaline Phosphatase 66 (38-126) U/L Total Protein 5.7 L (6.3-8.3) g/dL Albumin 2.8 L (3.5-5.0) g/dL Globulin 2.9 (2.2-3.9) gm/dL Albumin/Globulin Ratio 1.0 (1.0-2.1) Amylase 178 H D (30-110) U/L Lipase 806 H (23-300) U/L Serum Ketones Small (NEGATIVE) 06/25/16 06/25/16 06/25/16 Range/Units 21:04 19:47 18:02 WBC (4.8-10.8) K/uL RBC (4.40-5.90) Mil/uL Hgb (12.0-18.0) g/dL Hct (35.0-51.0) % MCV (80.0-94.0) fL MCH (27.0-31.0) pg MCHC (33.0-37.0) g/dL RDW (11.5-14.5) % Plt Count (130-400) K/uL MPV (7.2-11.7) fL Neut % (Auto) (50.0-75.0) % Lymph % (Auto) (20.0-40.0) % [place] % (Auto) (0.0-10.0) % Eos % (Auto) (0.0-4.0) % Baso % (Auto) (0.0-2.0) % Neut # (1.8-7.0) K/uL Lymph # (1.0-4.3) K/uL [place] # (0.0-0.8) K/uL Eos # (0.0-0.7) K/uL Baso # (0.0-0.2) K/uL Sodium (132-148) mmol/L Potassium (3.6-5.2) mmol/L Chloride (98-107) mmol/L Carbon Dioxide (22-30) mmol/L Anion Gap (10-20) BUN (9-20) mg/dL Creatinine (0.8-1.5) MG/DL Est GFR ( Amer) Est GFR (Non-Af Amer) POC Glucose (mg/dL) 206 H 202 H 194 H (65-110) mg/dL Random Glucose (75-110) mg/dL Calcium (8.6-10.4) mg/dl Phosphorus (2.5-4.5) mg/dL Magnesium (1.6-2.3) mg/dL Total Bilirubin (0.2-1.3) mg/dL AST (17-59) U/L ALT (21-72) U/L Alkaline Phosphatase (38-126) U/L Total Protein (6.3-8.3) g/dL Albumin (3.5-5.0) g/dL Globulin (2.2-3.9) gm/dL Albumin/Globulin Ratio (1.0-2.1) Amylase (30-110) U/L Lipase (23-300) U/L Serum Ketones (NEGATIVE) Laboratory Results - last 24 hr 06/25/16 06/25/16 06/25/16 18:02 19:47 21:04 WBC RBC Hgb Hct MCV MCH MCHC RDW Plt Count MPV Neut % (Auto) Lymph % (Auto) [place] % (Auto) Eos % (Auto) Baso % (Auto) Neut # Lymph # [place] # Eos # Baso # Sodium Potassium Chloride Carbon Dioxide Anion Gap BUN Creatinine Est GFR ( Amer) Est GFR (Non-Af Amer) POC Glucose (mg/dL) 194 H 202 H 206 H Random Glucose Calcium Phosphorus Magnesium Total Bilirubin AST ALT Alkaline Phosphatase Total Protein Albumin Globulin Albumin/Globulin Ratio Amylase Lipase Serum Ketones 06/25/16 06/26/16 06/26/16 23:44 06:08 07:59 WBC 5.2 RBC 5.02 Hgb 13.9 Hct 40.5 MCV 80.7 MCH 27.7 MCHC 34.3 RDW 13.9 Plt Count 140 MPV 8.0 Neut % (Auto) 61.8 Lymph % (Auto) 27.5 [place] % (Auto) 8.9 Eos % (Auto) 1.0 Baso % (Auto) 0.8 Neut # 3.2 Lymph # 1.4 [place] # 0.5 Eos # 0.1 Baso # 0.0 Sodium 133 Potassium 3.8 Chloride 104 Carbon Dioxide 11 L* D Anion Gap 22 H BUN 8 L Creatinine 0.6 L Est GFR ( Amer) > 60 Est GFR (Non-Af Amer) > 60 POC Glucose (mg/dL) 174 H 235 H Random Glucose 225 H Calcium 8.2 L Phosphorus 2.4 L Magnesium 1.7 Total Bilirubin 1.0 AST 13 L D ALT 23 Alkaline Phosphatase 66 Total Protein 5.7 L Albumin 2.8 L Globulin 2.9 Albumin/Globulin Ratio 1.0 Amylase 178 H D Lipase 806 H Serum Ketones Small 06/26/16 06/26/16 06/26/16 10:02 11:06 12:02 WBC RBC Hgb Hct MCV MCH MCHC RDW Plt Count MPV Neut % (Auto) Lymph % (Auto) [place] % (Auto) Eos % (Auto) Baso % (Auto) Neut # Lymph # [place] # Eos # Baso # Sodium Potassium Chloride Carbon Dioxide Anion Gap BUN Creatinine Est GFR ( Amer) Est GFR (Non-Af Amer) POC Glucose (mg/dL) 213 H 163 H 151 H Random Glucose Calcium Phosphorus Magnesium Total Bilirubin AST ALT Alkaline Phosphatase Total Protein Albumin Globulin Albumin/Globulin Ratio Amylase Lipase Serum Ketones 06/26/16 06/26/16 06/26/16 13:10 14:04 14:25 WBC RBC Hgb Hct MCV MCH MCHC RDW Plt Count MPV Neut % (Auto) Lymph % (Auto) [place] % (Auto) Eos % (Auto) Baso % (Auto) Neut # Lymph # [place] # Eos # Baso # Sodium 132 Potassium 3.9 Chloride 100 Carbon Dioxide 13 L Anion Gap 23 H BUN 11 Creatinine 0.7 L Est GFR ( Amer) > 60 Est GFR (Non-Af Amer) > 60 POC Glucose (mg/dL) 201 H 243 H Random Glucose 228 H Calcium 8.4 L Phosphorus Magnesium Total Bilirubin AST ALT Alkaline Phosphatase Total Protein Albumin Globulin Albumin/Globulin Ratio Amylase Lipase Serum Ketones 06/26/16 06/26/16 06/26/16 15:15 16:03 17:02 WBC RBC Hgb Hct MCV MCH MCHC RDW Plt Count MPV Neut % (Auto) Lymph % (Auto) [place] % (Auto) Eos % (Auto) Baso % (Auto) Neut # Lymph # [place] # Eos # Baso # Sodium Potassium Chloride Carbon Dioxide Anion Gap BUN Creatinine Est GFR ( Amer) Est GFR (Non-Af Amer) POC Glucose (mg/dL) 201 H 206 H 183 H Random Glucose Calcium Phosphorus Magnesium Total Bilirubin AST ALT Alkaline Phosphatase Total Protein Albumin Globulin Albumin/Globulin Ratio Amylase Lipase Serum Ketones Fingerstick Blood Sugar Results: 201 Review of Systems - Review of Systems Review of Systems: as noted in subjective Critical Care Progress Note - Nutrition Nutrition: Nutrition Category Date Time Status Diabetic [Consistent Carbohydrate] [DIET] Diets 06/26/16 Breakfast Active Assessment/Plan - Assessment and Plan (Free Text) Assessment: 46 M with past medical history of DM Type I who presented to the ED yesterday with shortness of breath, nausea, vomiting, and abdominal pain. Pt admitted to ICU for DKA and suspected pancreatitis though pancreatic enzymes are improving.Anion gap closed yesterday, however, this morning the anion gap increased to 18 and thus Endocrinology was consulted for further management. Plan: Neuro AAOx3 No neurologic deficit ETOH screen - negative Pulm: On room air. O2sat 98-99% RR stable 06/23/16 CXR: Diffuse increased interstitial markings suggestive for venous congestion and or interstitial infiltrates. Left hilar prominence. Biapical pleural thickening with upper lobe granulomatous changes. Cardio HTN 06/24/16 ECG: Sinus tachycardia, T wave abnormality, consider inferior ischemia. Troponin I: <0.0120 Monitor Heme Leukocytosis resolved - WBC 5.2 (06/26/16) H/H: 13.9/40.5 (06/24/16) Plt 140 (06/24/16) GI Acute pancreatitis, likely DKA associated 06/26/16: Amylase 178, Lipase 806 06/24/16 AM: Amylase 813, Lipase 4423 06/24/16 PM: Lipase 4940 f/u pancreatic enzymes 06/24/16 CT abdomen/pelvis - Peripancreatic inflammatory stranding, peripancreatic adenopathy, and mild pancreatic edema consistent with acute pancreatitis.Small hiatal hernia/distal esophageal wall thickening and evidence of gastroesophageal reflux. Recommend further evaluation with endoscopy given prominent distal esophageal wall thickening of unclear significance. 06/24/16 U/S abdomen - Diffuse increased echogenicity in the liver may reflect hepatic steatosis, however, parenchymal infections/inflammatory etiologies cannot be entirely excluded. Clinical and laboratory correlation is advised. No evidence of chlelithiasis or biliary dilatation. Abdominal pain - resolved GI Consulted (Dr. Collins) - help appreciated FLD, advance as tolerated Continue IVF Endo Anion gap of 18 today, serum ketones small Insulin drip restarted IVF D5NS IV @175cc/hr Sodium Chloride IV Zofran 4mg IVP Q6h Hgb A1c 12.0, FBS 225 (06/26/16 7:00) Accuchecks Q1h Endocrinology (Dr. De Jesus) consulted -Recommendations to start IV fluids and monitor. Nephro BUN/Cr: 8/0.6 Ca2+ 8.2 Hyperkalemia resolved (5.7 >> 3.8) Monitor electrolytes, replenish as needed ID: WBC 5.2 Blood cx - no growth after 24hrs urine, MRSA cultures - negative UA (06/26/16): protein -, Glu 3+, Ketones 2+, blood -, Leuk esterase - UA (06/23/16): protein 1+, Glu 3+, Ketones 2+, Blood 1+, Leuk esterase - UDS pending Monitor Prophylaxis DVT ppx: Lovenox 40mg subq daily, SCDs GI ppx: Pepcid 20mg IV Q12h <Jose Negro - Last Filed: 06/26/16 18:19> CCU Objective - Vital Signs / Intake & Output Vital Signs (Last 4 hours): Vital Signs Pulse Resp BP Pulse Ox 06/26/16 15:08 88 24 158/98 H 100 06/26/16 14:59 93 H 26 H 241/142 H 99 Intake and Output (Last 8hrs): Intake & Output 06/26/16 06/26/16 06/26/16 06:59 14:59 22:59 Intake Total 480 1576.5 103 Output Total 900 1500 0 Balance -420 76.5 103 Intake: Intake, IV Amount 226.5 103 Left Forearm 212.5 100 left forearm y port 14 3 Oral 480 1350 0 Output: Urine 900 1500 0 Urine, Voided 900 1500 0 Other: # Voids Urine, Voided 1 - Medications Active Medications: Active Medications Generic Name Dose Route Start Last Admin Trade Name Freq PRN Reason Stop Dose Admin Acetaminophen 650 mg 06/23/16 20:21 Tylenol 325mg Tab PO Q6 PRN Headache Enoxaparin Sodium 40 mg 06/24/16 10:00 06/26/16 09:15 Lovenox SC 40 mg DAILY KIM Administration Famotidine 20 mg 06/23/16 22:00 06/26/16 09:15 Pepcid PO 20 mg Q12 KIM Administration Insulin Human Regular 100 unit 100 mls @ 3 mls/hr 06/26/16 10:25 06/26/16 17:04 / Sodium Chloride IV 2 ml/hr .Q24H KIM Titration Protocol Sodium Chloride 1,000 mls @ 100 mls/hr 06/26/16 15:00 06/26/16 15:37 Sodium Chloride 0.9% IV 100 mls/hr .Q10H KIM Administration Insulin Aspart 0 unit 06/26/16 07:30 06/26/16 17:04 Novolog SC Not Given ACHS KIM Protocol Insulin Glargine 20 unit 06/25/16 22:00 06/26/16 17:09 Lantus SC 20 u BID KIM Administration Morphine Sulfate 2 mg 06/23/16 20:09 Morphine IVP Q4H PRN Pain, moderate (4-7) Ondansetron HCl 4 mg 06/23/16 20:09 Zofran Inj IVP Q6H PRN Nausea/Vomiting - Patient Studies Lab Studies: Lab Studies 06/26/16 06/26/16 06/26/16 Range/Units 18:01 17:02 16:03 WBC (4.8-10.8) K/uL RBC (4.40-5.90) Mil/uL Hgb (12.0-18.0) g/dL Hct (35.0-51.0) % MCV (80.0-94.0) fL MCH (27.0-31.0) pg MCHC (33.0-37.0) g/dL RDW (11.5-14.5) % Plt Count (130-400) K/uL MPV (7.2-11.7) fL Neut % (Auto) (50.0-75.0) % Lymph % (Auto) (20.0-40.0) % [place] % (Auto) (0.0-10.0) % Eos % (Auto) (0.0-4.0) % Baso % (Auto) (0.0-2.0) % Neut # (1.8-7.0) K/uL Lymph # (1.0-4.3) K/uL [place] # (0.0-0.8) K/uL Eos # (0.0-0.7) K/uL Baso # (0.0-0.2) K/uL Sodium (132-148) mmol/L Potassium (3.6-5.2) mmol/L Chloride (98-107) mmol/L Carbon Dioxide (22-30) mmol/L Anion Gap (10-20) BUN (9-20) mg/dL Creatinine (0.8-1.5) MG/DL Est GFR ( Amer) Est GFR (Non-Af Amer) POC Glucose (mg/dL) 132 H 183 H 206 H (65-110) mg/dL Random Glucose (75-110) mg/dL Calcium (8.6-10.4) mg/dl Phosphorus (2.5-4.5) mg/dL Magnesium (1.6-2.3) mg/dL Total Bilirubin (0.2-1.3) mg/dL AST (17-59) U/L ALT (21-72) U/L Alkaline Phosphatase (38-126) U/L Total Protein (6.3-8.3) g/dL Albumin (3.5-5.0) g/dL Globulin (2.2-3.9) gm/dL Albumin/Globulin Ratio (1.0-2.1) Amylase (30-110) U/L Lipase (23-300) U/L Serum Ketones (NEGATIVE) 06/26/16 06/26/16 06/26/16 Range/Units 15:15 14:25 14:04 WBC (4.8-10.8) K/uL RBC (4.40-5.90) Mil/uL Hgb (12.0-18.0) g/dL Hct (35.0-51.0) % MCV (80.0-94.0) fL MCH (27.0-31.0) pg MCHC (33.0-37.0) g/dL RDW (11.5-14.5) % Plt Count (130-400) K/uL MPV (7.2-11.7) fL Neut % (Auto) (50.0-75.0) % Lymph % (Auto) (20.0-40.0) % [place] % (Auto) (0.0-10.0) % Eos % (Auto) (0.0-4.0) % Baso % (Auto) (0.0-2.0) % Neut # (1.8-7.0) K/uL Lymph # (1.0-4.3) K/uL [place] # (0.0-0.8) K/uL Eos # (0.0-0.7) K/uL Baso # (0.0-0.2) K/uL Sodium 132 (132-148) mmol/L Potassium 3.9 (3.6-5.2) mmol/L Chloride 100 (98-107) mmol/L Carbon Dioxide 13 L (22-30) mmol/L Anion Gap 23 H (10-20) BUN 11 (9-20) mg/dL Creatinine 0.7 L (0.8-1.5) MG/DL Est GFR ( Amer) > 60 Est GFR (Non-Af Amer) > 60 POC Glucose (mg/dL) 201 H 243 H (65-110) mg/dL Random Glucose 228 H (75-110) mg/dL Calcium 8.4 L (8.6-10.4) mg/dl Phosphorus (2.5-4.5) mg/dL Magnesium (1.6-2.3) mg/dL Total Bilirubin (0.2-1.3) mg/dL AST (17-59) U/L ALT (21-72) U/L Alkaline Phosphatase (38-126) U/L Total Protein (6.3-8.3) g/dL Albumin (3.5-5.0) g/dL Globulin (2.2-3.9) gm/dL Albumin/Globulin Ratio (1.0-2.1) Amylase (30-110) U/L Lipase (23-300) U/L Serum Ketones (NEGATIVE) 06/26/16 06/26/16 06/26/16 Range/Units 13:10 12:02 11:06 WBC (4.8-10.8) K/uL RBC (4.40-5.90) Mil/uL Hgb (12.0-18.0) g/dL Hct (35.0-51.0) % MCV (80.0-94.0) fL MCH (27.0-31.0) pg MCHC (33.0-37.0) g/dL RDW (11.5-14.5) % Plt Count (130-400) K/uL MPV (7.2-11.7) fL Neut % (Auto) (50.0-75.0) % Lymph % (Auto) (20.0-40.0) % [place] % (Auto) (0.0-10.0) % Eos % (Auto) (0.0-4.0) % Baso % (Auto) (0.0-2.0) % Neut # (1.8-7.0) K/uL Lymph # (1.0-4.3) K/uL [place] # (0.0-0.8) K/uL Eos # (0.0-0.7) K/uL Baso # (0.0-0.2) K/uL Sodium (132-148) mmol/L Potassium (3.6-5.2) mmol/L Chloride (98-107) mmol/L Carbon Dioxide (22-30) mmol/L Anion Gap (10-20) BUN (9-20) mg/dL Creatinine (0.8-1.5) MG/DL Est GFR ( Amer) Est GFR (Non-Af Amer) POC Glucose (mg/dL) 201 H 151 H 163 H (65-110) mg/dL Random Glucose (75-110) mg/dL Calcium (8.6-10.4) mg/dl Phosphorus (2.5-4.5) mg/dL Magnesium (1.6-2.3) mg/dL Total Bilirubin (0.2-1.3) mg/dL AST (17-59) U/L ALT (21-72) U/L Alkaline Phosphatase (38-126) U/L Total Protein (6.3-8.3) g/dL Albumin (3.5-5.0) g/dL Globulin (2.2-3.9) gm/dL Albumin/Globulin Ratio (1.0-2.1) Amylase (30-110) U/L Lipase (23-300) U/L Serum Ketones (NEGATIVE) 06/26/16 06/26/16 06/26/16 Range/Units 10:02 07:59 06:08 WBC 5.2 (4.8-10.8) K/uL RBC 5.02 (4.40-5.90) Mil/uL Hgb 13.9 (12.0-18.0) g/dL Hct 40.5 (35.0-51.0) % MCV 80.7 (80.0-94.0) fL MCH 27.7 (27.0-31.0) pg MCHC 34.3 (33.0-37.0) g/dL RDW 13.9 (11.5-14.5) % Plt Count 140 (130-400) K/uL MPV 8.0 (7.2-11.7) fL Neut % (Auto) 61.8 (50.0-75.0) % Lymph % (Auto) 27.5 (20.0-40.0) % [place] % (Auto) 8.9 (0.0-10.0) % Eos % (Auto) 1.0 (0.0-4.0) % Baso % (Auto) 0.8 (0.0-2.0) % Neut # 3.2 (1.8-7.0) K/uL Lymph # 1.4 (1.0-4.3) K/uL [place] # 0.5 (0.0-0.8) K/uL Eos # 0.1 (0.0-0.7) K/uL Baso # 0.0 (0.0-0.2) K/uL Sodium 133 (132-148) mmol/L Potassium 3.8 (3.6-5.2) mmol/L Chloride 104 (98-107) mmol/L Carbon Dioxide 11 L* D (22-30) mmol/L Anion Gap 22 H (10-20) BUN 8 L (9-20) mg/dL Creatinine 0.6 L (0.8-1.5) MG/DL Est GFR ( Amer) > 60 Est GFR (Non-Af Amer) > 60 POC Glucose (mg/dL) 213 H 235 H (65-110) mg/dL Random Glucose 225 H (75-110) mg/dL Calcium 8.2 L (8.6-10.4) mg/dl Phosphorus 2.4 L (2.5-4.5) mg/dL Magnesium 1.7 (1.6-2.3) mg/dL Total Bilirubin 1.0 (0.2-1.3) mg/dL AST 13 L D (17-59) U/L ALT 23 (21-72) U/L Alkaline Phosphatase 66 (38-126) U/L Total Protein 5.7 L (6.3-8.3) g/dL Albumin 2.8 L (3.5-5.0) g/dL Globulin 2.9 (2.2-3.9) gm/dL Albumin/Globulin Ratio 1.0 (1.0-2.1) Amylase 178 H D (30-110) U/L Lipase 806 H (23-300) U/L Serum Ketones Small (NEGATIVE) 06/25/16 06/25/16 06/25/16 Range/Units 23:44 21:04 19:47 WBC (4.8-10.8) K/uL RBC (4.40-5.90) Mil/uL Hgb (12.0-18.0) g/dL Hct (35.0-51.0) % MCV (80.0-94.0) fL MCH (27.0-31.0) pg MCHC (33.0-37.0) g/dL RDW (11.5-14.5) % Plt Count (130-400) K/uL MPV (7.2-11.7) fL Neut % (Auto) (50.0-75.0) % Lymph % (Auto) (20.0-40.0) % [place] % (Auto) (0.0-10.0) % Eos % (Auto) (0.0-4.0) % Baso % (Auto) (0.0-2.0) % Neut # (1.8-7.0) K/uL Lymph # (1.0-4.3) K/uL [place] # (0.0-0.8) K/uL Eos # (0.0-0.7) K/uL Baso # (0.0-0.2) K/uL Sodium (132-148) mmol/L Potassium (3.6-5.2) mmol/L Chloride (98-107) mmol/L Carbon Dioxide (22-30) mmol/L Anion Gap (10-20) BUN (9-20) mg/dL Creatinine (0.8-1.5) MG/DL Est GFR ( Amer) Est GFR (Non-Af Amer) POC Glucose (mg/dL) 174 H 206 H 202 H (65-110) mg/dL Random Glucose (75-110) mg/dL Calcium (8.6-10.4) mg/dl Phosphorus (2.5-4.5) mg/dL Magnesium (1.6-2.3) mg/dL Total Bilirubin (0.2-1.3) mg/dL AST (17-59) U/L ALT (21-72) U/L Alkaline Phosphatase (38-126) U/L Total Protein (6.3-8.3) g/dL Albumin (3.5-5.0) g/dL Globulin (2.2-3.9) gm/dL Albumin/Globulin Ratio (1.0-2.1) Amylase (30-110) U/L Lipase (23-300) U/L Serum Ketones (NEGATIVE) Laboratory Results - last 24 hr 06/25/16 06/25/16 06/25/16 19:47 21:04 23:44 WBC RBC Hgb Hct MCV MCH MCHC RDW Plt Count MPV Neut % (Auto) Lymph % (Auto) [place] % (Auto) Eos % (Auto) Baso % (Auto) Neut # Lymph # [place] # Eos # Baso # Sodium Potassium Chloride Carbon Dioxide Anion Gap BUN Creatinine Est GFR ( Amer) Est GFR (Non-Af Amer) POC Glucose (mg/dL) 202 H 206 H 174 H Random Glucose Calcium Phosphorus Magnesium Total Bilirubin AST ALT Alkaline Phosphatase Total Protein Albumin Globulin Albumin/Globulin Ratio Amylase Lipase Serum Ketones 06/26/16 06/26/16 06/26/16 06:08 07:59 10:02 WBC 5.2 RBC 5.02 Hgb 13.9 Hct 40.5 MCV 80.7 MCH 27.7 MCHC 34.3 RDW 13.9 Plt Count 140 MPV 8.0 Neut % (Auto) 61.8 Lymph % (Auto) 27.5 [place] % (Auto) 8.9 Eos % (Auto) 1.0 Baso % (Auto) 0.8 Neut # 3.2 Lymph # 1.4 [place] # 0.5 Eos # 0.1 Baso # 0.0 Sodium 133 Potassium 3.8 Chloride 104 Carbon Dioxide 11 L* D Anion Gap 22 H BUN 8 L Creatinine 0.6 L Est GFR ( Amer) > 60 Est GFR (Non-Af Amer) > 60 POC Glucose (mg/dL) 235 H 213 H Random Glucose 225 H Calcium 8.2 L Phosphorus 2.4 L Magnesium 1.7 Total Bilirubin 1.0 AST 13 L D ALT 23 Alkaline Phosphatase 66 Total Protein 5.7 L Albumin 2.8 L Globulin 2.9 Albumin/Globulin Ratio 1.0 Amylase 178 H D Lipase 806 H Serum Ketones Small 06/26/16 06/26/16 06/26/16 11:06 12:02 13:10 WBC RBC Hgb Hct MCV MCH MCHC RDW Plt Count MPV Neut % (Auto) Lymph % (Auto) [place] % (Auto) Eos % (Auto) Baso % (Auto) Neut # Lymph # [place] # Eos # Baso # Sodium Potassium Chloride Carbon Dioxide Anion Gap BUN Creatinine Est GFR ( Amer) Est GFR (Non-Af Amer) POC Glucose (mg/dL) 163 H 151 H 201 H Random Glucose Calcium Phosphorus Magnesium Total Bilirubin AST ALT Alkaline Phosphatase Total Protein Albumin Globulin Albumin/Globulin Ratio Amylase Lipase Serum Ketones 06/26/16 06/26/16 06/26/16 14:04 14:25 15:15 WBC RBC Hgb Hct MCV MCH MCHC RDW Plt Count MPV Neut % (Auto) Lymph % (Auto) [place] % (Auto) Eos % (Auto) Baso % (Auto) Neut # Lymph # [place] # Eos # Baso # Sodium 132 Potassium 3.9 Chloride 100 Carbon Dioxide 13 L Anion Gap 23 H BUN 11 Creatinine 0.7 L Est GFR ( Amer) > 60 Est GFR (Non-Af Amer) > 60 POC Glucose (mg/dL) 243 H 201 H Random Glucose 228 H Calcium 8.4 L Phosphorus Magnesium Total Bilirubin AST ALT Alkaline Phosphatase Total Protein Albumin Globulin Albumin/Globulin Ratio Amylase Lipase Serum Ketones 06/26/16 06/26/16 06/26/16 16:03 17:02 18:01 WBC RBC Hgb Hct MCV MCH MCHC RDW Plt Count MPV Neut % (Auto) Lymph % (Auto) [place] % (Auto) Eos % (Auto) Baso % (Auto) Neut # Lymph # [place] # Eos # Baso # Sodium Potassium Chloride Carbon Dioxide Anion Gap BUN Creatinine Est GFR ( Amer) Est GFR (Non-Af Amer) POC Glucose (mg/dL) 206 H 183 H 132 H Random Glucose Calcium Phosphorus Magnesium Total Bilirubin AST ALT Alkaline Phosphatase Total Protein Albumin Globulin Albumin/Globulin Ratio Amylase Lipase Serum Ketones Critical Care Progress Note - Nutrition Nutrition: Nutrition Category Date Time Status Diabetic [Consistent Carbohydrate] [DIET] Diets 06/26/16 Breakfast Active Attending/Attestation - Attestation I have personally seen and examined this patient.: Yes I have fully participated in the care of the patient.: Yes I have reviewed all pertinent clinical information: Yes Notes (Text): 06/26/16 18:19 Patient seen and examined in the intensive care unit. Case discussed with STAFF in the morning rounds. Morning labs consistent with metabolic acidosis and high anion gap Started on insulin drips with IV fluids Endocrinology evaluation
[2016-06-26] MEDS ORDERED: Dextrose 5%/0.9% NS 1,000 ML IV SCH (19:45)
[2016-06-26 20:24] LABS: HEMATOCRIT 48.9 % (35.0-51.0); MEAN CORPUSCULAR HGB CONC 34.5 g/dL (33.0-37.0); WHITE BLOOD COUNT 6.3 K/uL (4.8-10.8)
[2016-06-26 20:32] LABS: CHLORIDE 97 mmol/L (98-107); POTASSIUM 3.5 mmol/L (3.6-5.2); SODIUM 134 mmol/L (132-148)
[2016-06-26 20:34] LABS: GFR AFRICAN-AMERICAN > 60
[2016-06-26 20:35] LABS: ALB/GLOB RATIO 1.1 (1.0-2.1); ALKALINE PHOSPHATASE 96 U/L (38-126); ALT/SGPT 26 U/L (21-72); AST/SGOT 17 U/L (17-59); BILIRUBIN,TOTAL 0.8 mg/dL (0.2-1.3); BLOOD UREA NITROGEN 11 mg/dL (9-20); CALCIUM 8.8 mg/dl (8.6-10.4); CARBON DIOXIDE 16 mmol/L (22-30); GLUCOSE,RANDOM 198 mg/dL (75-110); PHOSPHOROUS 2.9 mg/dL (2.5-4.5); TOTAL PROTEIN 7.8 g/dL (6.3-8.3)
[2016-06-26 20:36] LABS: MAGNESIUM 1.7 mg/dL (1.6-2.3)
[2016-06-26] MEDS: Sodium Chloride 0.45% 1,000 ML IV SCH (23:08)
[2016-06-26] MEDS ORDERED: Potassium Chloride 20 mEq 100 ML IVPB ONE (23:14)
[2016-06-27 05:18] LABS: BASO % 0.7 % (0.0-2.0); EOS # 0.1 K/uL (0.0-0.7); EOS % 1.5 % (0.0-4.0); HEMATOCRIT 38.8 % (35.0-51.0); LYMPH # 1.4 K/uL (1.0-4.3); LYMPH % 25.5 % (20.0-40.0); MEAN CORPUSCULAR HEMOGLOBIN 27.8 pg (27.0-31.0); MEAN CORPUSCULAR HGB CONC 33.9 g/dL (33.0-37.0); MEAN PLATELET VOLUME 7.8 fL (7.2-11.7); MONO # 0.6 K/uL (0.0-0.8); MONO % 10.6 % (0.0-10.0); NRBC % 0.1 % (0.0-2.0); RED CELL DISTRIBUTION WIDTH 13.8 % (11.5-14.5); WHITE BLOOD COUNT 5.3 K/uL (4.8-10.8)
--- NOTE | 2016-06-27 07:53 | CP.CCUPN ---
CCU Subjective - Physician Review Subjective (Free Text): 06/24/16 17:54 Patient seen and examined at bedside. No additional acute events overnight per nursing. Pt states his abdominal pain has resolved and he is feeling better. Patient urinating without problems. Patient denies chest pain, shortness of breath, nausea, vomiting, diarrhea, headaches, paresthesias, abdominal pain at this time. 06/25/16 14:50 Patient seen and examined in no acute distress. No events overnight per nursing. Pt inquired about his medical course thus far which was explained to him. Patient states that he would like to eat. He is urinating without complaints. He denies headaches, subjective fevers or chills, nausea, vomiting, diarrhea, chest pain, abdominal pain at this point. 06/26/16 17:44 Patient seen and examined at bedside. No acute events overnight per nursing. Pt is tolerating diet, denies abdominal pain. Increase in anion gap and thus insulin drip restarted. He denies headaches, subjective fevers or chills, nausea , vomiting, diarrhea, chest pain, palpitations, paresthesias or abdominal pain at this point. 06/27/16 20:02 Pt seen and examined in no acute distress. Patient concerned about management and thus re-explained to him as well as mother vie cell-phone. Patient acknowledged understanding. He denies subjective fevers or chills, nausea, vomiting, diarrhea, constipation, headaches, chest pain, palpitations, paresthesias or abdominal pain at this point. CCU Objective - Vital Signs / Intake & Output Vital Signs (Last 4 hours): Vital Signs Temp Pulse Resp BP Pulse Ox 06/27/16 07:00 87 20 94 L 06/27/16 06:58 82 19 120/69 95 06/27/16 06:00 95 H 20 120/62 100 06/27/16 05:00 81 19 98 06/27/16 04:59 79 24 135/102 H 98 06/27/16 04:19 86 28 H 99 06/27/16 04:00 98.0 F 82 13 97 06/27/16 03:58 81 18 131/68 99 Intake and Output (Last 8hrs): Intake & Output 06/26/16 06/27/16 06/27/16 22:59 06:59 14:59 Intake Total 1747 1600 150 Output Total 800 2000 0 Balance 947 -400 150 Intake: Intake, IV Amount 817 1600 150 Left Forearm 800 1200 150 left forearm y port 17 400 Oral 930 0 Output: Urine 800 2000 0 Urine, Voided 800 2000 0 Stool 0 0 0 Other: # Voids Urine, Voided 1 1 - Physical Exam Head: Positive for: Atraumatic, Normocephalic Pupils: Positive for: PERRL Extroacular Muscles: Positive for: EOMI Conjunctiva: Positive for: Normal Mouth: Positive for: Moist Mucous Membranes Nose (External): Negative for: Atraumatic, Abrasion Nose (Internal): Positive for: Normal Inspection Neck: Positive for: Normal Range of Motion Respiratory/Chest: Positive for: Clear to Auscultation. Negative for: Wheezes Cardiovascular: Positive for: Regular Rate and Rhythm, Normal S1, S2 Abdomen: Positive for: Normal Bowel Sounds. Negative for: Tenderness, Peritoneal Signs, McBurney's Point Tender, Rovsing's Sign Present, Hernias Back: Positive for: Normal Inspection Upper Extremity: Positive for: Normal Inspection, Normal ROM. Negative for: Edema Lower Extremity: Positive for: Normal Inspection. Negative for: CALF TENDERNESS Neurological: Positive for: CN II-XII Intact, Speech Normal, Normal Sensory Function Skin: Positive for: Warm, Dry, Normal Color Psychiatric: Positive for: Alert, Oriented x 3, Normal Insight, Normal Concentration, Normal Affect, Normal Mood - Medications Active Medications: Active Medications Generic Name Dose Route Start Last Admin Trade Name Freq PRN Reason Stop Dose Admin Acetaminophen 650 mg 06/23/16 20:21 Tylenol 325mg Tab PO Q6 PRN Headache Enoxaparin Sodium 40 mg 06/24/16 10:00 06/26/16 09:15 Lovenox SC 40 mg DAILY KIM Administration Famotidine 20 mg 06/23/16 22:00 06/26/16 22:56 Pepcid PO 20 mg Q12 KIM Administration Sodium Chloride 1,000 mls @ 125 mls/hr 06/26/16 23:00 06/26/16 23:08 Sodium Chloride 0.45% IV 125 mls/hr .Q8H KIM Administration Insulin Aspart 12 unit 06/27/16 07:30 Novolog SC AC KIM Insulin Aspart 0 unit 06/27/16 07:30 Novolog SC ACHS KIM Protocol Insulin Glargine 30 unit 06/27/16 10:00 Lantus SC Q12H KIM Morphine Sulfate 2 mg 06/23/16 20:09 Morphine IVP Q4H PRN Pain, moderate (4-7) Ondansetron HCl 4 mg 06/23/16 20:09 Zofran Inj IVP Q6H PRN Nausea/Vomiting - Patient Studies Lab Studies: Lab Studies 06/27/16 06/26/16 06/26/16 Range/Units 05:00 21:39 20:17 WBC 5.3 6.3 (4.8-10.8) K/uL RBC 4.73 6.04 H (4.40-5.90) Mil/uL Hgb 13.1 D 16.9 D (12.0-18.0) g/dL Hct 38.8 48.9 (35.0-51.0) % MCV 82.0 81.0 (80.0-94.0) fL MCH 27.8 28.0 (27.0-31.0) pg MCHC 33.9 34.5 (33.0-37.0) g/dL RDW 13.8 14.0 (11.5-14.5) % Plt Count 138 184 (130-400) K/uL MPV 7.8 8.0 (7.2-11.7) fL Neut % (Auto) 61.7 (50.0-75.0) % Lymph % (Auto) 25.5 (20.0-40.0) % [place] % (Auto) 10.6 H (0.0-10.0) % Eos % (Auto) 1.5 (0.0-4.0) % Baso % (Auto) 0.7 (0.0-2.0) % Neut # 3.3 (1.8-7.0) K/uL Lymph # 1.4 (1.0-4.3) K/uL [place] # 0.6 (0.0-0.8) K/uL Eos # 0.1 (0.0-0.7) K/uL Baso # 0.0 (0.0-0.2) K/uL Sodium 134 (132-148) mmol/L Potassium 3.5 L (3.6-5.2) mmol/L Chloride 97 L (98-107) mmol/L Carbon Dioxide 16 L (22-30) mmol/L Anion Gap 25 H (10-20) BUN 11 (9-20) mg/dL Creatinine 0.8 (0.8-1.5) MG/DL Est GFR ( Amer) > 60 Est GFR (Non-Af Amer) > 60 POC Glucose (mg/dL) 163 H (65-110) mg/dL Random Glucose 198 H (75-110) mg/dL Calcium 8.8 (8.6-10.4) mg/dl Phosphorus 2.9 (2.5-4.5) mg/dL Magnesium 1.7 (1.6-2.3) mg/dL Total Bilirubin 0.8 (0.2-1.3) mg/dL AST 17 D (17-59) U/L ALT 26 (21-72) U/L Alkaline Phosphatase 96 (38-126) U/L Total Protein 7.8 (6.3-8.3) g/dL Albumin 4.0 (3.5-5.0) g/dL Globulin 3.7 (2.2-3.9) gm/dL Albumin/Globulin Ratio 1.1 (1.0-2.1) Amylase (30-110) U/L Lipase (23-300) U/L Serum Ketones (NEGATIVE) 06/26/16 06/26/16 06/26/16 Range/Units 19:08 18:01 17:02 WBC (4.8-10.8) K/uL RBC (4.40-5.90) Mil/uL Hgb (12.0-18.0) g/dL Hct (35.0-51.0) % MCV (80.0-94.0) fL MCH (27.0-31.0) pg MCHC (33.0-37.0) g/dL RDW (11.5-14.5) % Plt Count (130-400) K/uL MPV (7.2-11.7) fL Neut % (Auto) (50.0-75.0) % Lymph % (Auto) (20.0-40.0) % [place] % (Auto) (0.0-10.0) % Eos % (Auto) (0.0-4.0) % Baso % (Auto) (0.0-2.0) % Neut # (1.8-7.0) K/uL Lymph # (1.0-4.3) K/uL [place] # (0.0-0.8) K/uL Eos # (0.0-0.7) K/uL Baso # (0.0-0.2) K/uL Sodium (132-148) mmol/L Potassium (3.6-5.2) mmol/L Chloride (98-107) mmol/L Carbon Dioxide (22-30) mmol/L Anion Gap (10-20) BUN (9-20) mg/dL Creatinine (0.8-1.5) MG/DL Est GFR ( Amer) Est GFR (Non-Af Amer) POC Glucose (mg/dL) 219 H 132 H 183 H (65-110) mg/dL Random Glucose (75-110) mg/dL Calcium (8.6-10.4) mg/dl Phosphorus (2.5-4.5) mg/dL Magnesium (1.6-2.3) mg/dL Total Bilirubin (0.2-1.3) mg/dL AST (17-59) U/L ALT (21-72) U/L Alkaline Phosphatase (38-126) U/L Total Protein (6.3-8.3) g/dL Albumin (3.5-5.0) g/dL Globulin (2.2-3.9) gm/dL Albumin/Globulin Ratio (1.0-2.1) Amylase (30-110) U/L Lipase (23-300) U/L Serum Ketones (NEGATIVE) 06/26/16 06/26/16 06/26/16 Range/Units 16:03 15:15 14:25 WBC (4.8-10.8) K/uL RBC (4.40-5.90) Mil/uL Hgb (12.0-18.0) g/dL Hct (35.0-51.0) % MCV (80.0-94.0) fL MCH (27.0-31.0) pg MCHC (33.0-37.0) g/dL RDW (11.5-14.5) % Plt Count (130-400) K/uL MPV (7.2-11.7) fL Neut % (Auto) (50.0-75.0) % Lymph % (Auto) (20.0-40.0) % [place] % (Auto) (0.0-10.0) % Eos % (Auto) (0.0-4.0) % Baso % (Auto) (0.0-2.0) % Neut # (1.8-7.0) K/uL Lymph # (1.0-4.3) K/uL [place] # (0.0-0.8) K/uL Eos # (0.0-0.7) K/uL Baso # (0.0-0.2) K/uL Sodium 132 (132-148) mmol/L Potassium 3.9 (3.6-5.2) mmol/L Chloride 100 (98-107) mmol/L Carbon Dioxide 13 L (22-30) mmol/L Anion Gap 23 H (10-20) BUN 11 (9-20) mg/dL Creatinine 0.7 L (0.8-1.5) MG/DL Est GFR ( Amer) > 60 Est GFR (Non-Af Amer) > 60 POC Glucose (mg/dL) 206 H 201 H (65-110) mg/dL Random Glucose 228 H (75-110) mg/dL Calcium 8.4 L (8.6-10.4) mg/dl Phosphorus (2.5-4.5) mg/dL Magnesium (1.6-2.3) mg/dL Total Bilirubin (0.2-1.3) mg/dL AST (17-59) U/L ALT (21-72) U/L Alkaline Phosphatase (38-126) U/L Total Protein (6.3-8.3) g/dL Albumin (3.5-5.0) g/dL Globulin (2.2-3.9) gm/dL Albumin/Globulin Ratio (1.0-2.1) Amylase (30-110) U/L Lipase (23-300) U/L Serum Ketones (NEGATIVE) 06/26/16 06/26/16 06/26/16 Range/Units 14:04 13:10 12:02 WBC (4.8-10.8) K/uL RBC (4.40-5.90) Mil/uL Hgb (12.0-18.0) g/dL Hct (35.0-51.0) % MCV (80.0-94.0) fL MCH (27.0-31.0) pg MCHC (33.0-37.0) g/dL RDW (11.5-14.5) % Plt Count (130-400) K/uL MPV (7.2-11.7) fL Neut % (Auto) (50.0-75.0) % Lymph % (Auto) (20.0-40.0) % [place] % (Auto) (0.0-10.0) % Eos % (Auto) (0.0-4.0) % Baso % (Auto) (0.0-2.0) % Neut # (1.8-7.0) K/uL Lymph # (1.0-4.3) K/uL [place] # (0.0-0.8) K/uL Eos # (0.0-0.7) K/uL Baso # (0.0-0.2) K/uL Sodium (132-148) mmol/L Potassium (3.6-5.2) mmol/L Chloride (98-107) mmol/L Carbon Dioxide (22-30) mmol/L Anion Gap (10-20) BUN (9-20) mg/dL Creatinine (0.8-1.5) MG/DL Est GFR ( Amer) Est GFR (Non-Af Amer) POC Glucose (mg/dL) 243 H 201 H 151 H (65-110) mg/dL Random Glucose (75-110) mg/dL Calcium (8.6-10.4) mg/dl Phosphorus (2.5-4.5) mg/dL Magnesium (1.6-2.3) mg/dL Total Bilirubin (0.2-1.3) mg/dL AST (17-59) U/L ALT (21-72) U/L Alkaline Phosphatase (38-126) U/L Total Protein (6.3-8.3) g/dL Albumin (3.5-5.0) g/dL Globulin (2.2-3.9) gm/dL Albumin/Globulin Ratio (1.0-2.1) Amylase (30-110) U/L Lipase (23-300) U/L Serum Ketones (NEGATIVE) 06/26/16 06/26/16 06/26/16 Range/Units 11:06 10:02 07:59 WBC (4.8-10.8) K/uL RBC (4.40-5.90) Mil/uL Hgb (12.0-18.0) g/dL Hct (35.0-51.0) % MCV (80.0-94.0) fL MCH (27.0-31.0) pg MCHC (33.0-37.0) g/dL RDW (11.5-14.5) % Plt Count (130-400) K/uL MPV (7.2-11.7) fL Neut % (Auto) (50.0-75.0) % Lymph % (Auto) (20.0-40.0) % [place] % (Auto) (0.0-10.0) % Eos % (Auto) (0.0-4.0) % Baso % (Auto) (0.0-2.0) % Neut # (1.8-7.0) K/uL Lymph # (1.0-4.3) K/uL [place] # (0.0-0.8) K/uL Eos # (0.0-0.7) K/uL Baso # (0.0-0.2) K/uL Sodium (132-148) mmol/L Potassium (3.6-5.2) mmol/L Chloride (98-107) mmol/L Carbon Dioxide (22-30) mmol/L Anion Gap (10-20) BUN (9-20) mg/dL Creatinine (0.8-1.5) MG/DL Est GFR ( Amer) Est GFR (Non-Af Amer) POC Glucose (mg/dL) 163 H 213 H 235 H (65-110) mg/dL Random Glucose (75-110) mg/dL Calcium (8.6-10.4) mg/dl Phosphorus (2.5-4.5) mg/dL Magnesium (1.6-2.3) mg/dL Total Bilirubin (0.2-1.3) mg/dL AST (17-59) U/L ALT (21-72) U/L Alkaline Phosphatase (38-126) U/L Total Protein (6.3-8.3) g/dL Albumin (3.5-5.0) g/dL Globulin (2.2-3.9) gm/dL Albumin/Globulin Ratio (1.0-2.1) Amylase (30-110) U/L Lipase (23-300) U/L Serum Ketones (NEGATIVE) 06/26/16 Range/Units 06:08 WBC (4.8-10.8) K/uL RBC (4.40-5.90) Mil/uL Hgb (12.0-18.0) g/dL Hct (35.0-51.0) % MCV (80.0-94.0) fL MCH (27.0-31.0) pg MCHC (33.0-37.0) g/dL RDW (11.5-14.5) % Plt Count (130-400) K/uL MPV (7.2-11.7) fL Neut % (Auto) (50.0-75.0) % Lymph % (Auto) (20.0-40.0) % [place] % (Auto) (0.0-10.0) % Eos % (Auto) (0.0-4.0) % Baso % (Auto) (0.0-2.0) % Neut # (1.8-7.0) K/uL Lymph # (1.0-4.3) K/uL [place] # (0.0-0.8) K/uL Eos # (0.0-0.7) K/uL Baso # (0.0-0.2) K/uL Sodium (132-148) mmol/L Potassium (3.6-5.2) mmol/L Chloride (98-107) mmol/L Carbon Dioxide (22-30) mmol/L Anion Gap (10-20) BUN (9-20) mg/dL Creatinine (0.8-1.5) MG/DL Est GFR ( Amer) Est GFR (Non-Af Amer) POC Glucose (mg/dL) (65-110) mg/dL Random Glucose (75-110) mg/dL Calcium (8.6-10.4) mg/dl Phosphorus (2.5-4.5) mg/dL Magnesium (1.6-2.3) mg/dL Total Bilirubin (0.2-1.3) mg/dL AST (17-59) U/L ALT (21-72) U/L Alkaline Phosphatase (38-126) U/L Total Protein (6.3-8.3) g/dL Albumin (3.5-5.0) g/dL Globulin (2.2-3.9) gm/dL Albumin/Globulin Ratio (1.0-2.1) Amylase 178 H D (30-110) U/L Lipase 806 H (23-300) U/L Serum Ketones Small (NEGATIVE) Laboratory Results - last 24 hr 06/26/16 06/26/16 06/26/16 06:08 07:59 10:02 WBC RBC Hgb Hct MCV MCH MCHC RDW Plt Count MPV Neut % (Auto) Lymph % (Auto) [place] % (Auto) Eos % (Auto) Baso % (Auto) Neut # Lymph # [place] # Eos # Baso # Sodium Potassium Chloride Carbon Dioxide Anion Gap BUN Creatinine Est GFR ( Amer) Est GFR (Non-Af Amer) POC Glucose (mg/dL) 235 H 213 H Random Glucose Calcium Phosphorus Magnesium Total Bilirubin AST ALT Alkaline Phosphatase Total Protein Albumin Globulin Albumin/Globulin Ratio Amylase 178 H D Lipase 806 H Serum Ketones Small 06/26/16 06/26/16 06/26/16 11:06 12:02 13:10 WBC RBC Hgb Hct MCV MCH MCHC RDW Plt Count MPV Neut % (Auto) Lymph % (Auto) [place] % (Auto) Eos % (Auto) Baso % (Auto) Neut # Lymph # [place] # Eos # Baso # Sodium Potassium Chloride Carbon Dioxide Anion Gap BUN Creatinine Est GFR ( Amer) Est GFR (Non-Af Amer) POC Glucose (mg/dL) 163 H 151 H 201 H Random Glucose Calcium Phosphorus Magnesium Total Bilirubin AST ALT Alkaline Phosphatase Total Protein Albumin Globulin Albumin/Globulin Ratio Amylase Lipase Serum Ketones 06/26/16 06/26/16 06/26/16 14:04 14:25 15:15 WBC RBC Hgb Hct MCV MCH MCHC RDW Plt Count MPV Neut % (Auto) Lymph % (Auto) [place] % (Auto) Eos % (Auto) Baso % (Auto) Neut # Lymph # [place] # Eos # Baso # Sodium 132 Potassium 3.9 Chloride 100 Carbon Dioxide 13 L Anion Gap 23 H BUN 11 Creatinine 0.7 L Est GFR ( Amer) > 60 Est GFR (Non-Af Amer) > 60 POC Glucose (mg/dL) 243 H 201 H Random Glucose 228 H Calcium 8.4 L Phosphorus Magnesium Total Bilirubin AST ALT Alkaline Phosphatase Total Protein Albumin Globulin Albumin/Globulin Ratio Amylase Lipase Serum Ketones 06/26/16 06/26/16 06/26/16 16:03 17:02 18:01 WBC RBC Hgb Hct MCV MCH MCHC RDW Plt Count MPV Neut % (Auto) Lymph % (Auto) [place] % (Auto) Eos % (Auto) Baso % (Auto) Neut # Lymph # [place] # Eos # Baso # Sodium Potassium Chloride Carbon Dioxide Anion Gap BUN Creatinine Est GFR ( Amer) Est GFR (Non-Af Amer) POC Glucose (mg/dL) 206 H 183 H 132 H Random Glucose Calcium Phosphorus Magnesium Total Bilirubin AST ALT Alkaline Phosphatase Total Protein Albumin Globulin Albumin/Globulin Ratio Amylase Lipase Serum Ketones 06/26/16 06/26/16 06/26/16 19:08 20:17 21:39 WBC 6.3 RBC 6.04 H Hgb 16.9 D Hct 48.9 MCV 81.0 MCH 28.0 MCHC 34.5 RDW 14.0 Plt Count 184 MPV 8.0 Neut % (Auto) Lymph % (Auto) [place] % (Auto) Eos % (Auto) Baso % (Auto) Neut # Lymph # [place] # Eos # Baso # Sodium 134 Potassium 3.5 L Chloride 97 L Carbon Dioxide 16 L Anion Gap 25 H BUN 11 Creatinine 0.8 Est GFR ( Amer) > 60 Est GFR (Non-Af Amer) > 60 POC Glucose (mg/dL) 219 H 163 H Random Glucose 198 H Calcium 8.8 Phosphorus 2.9 Magnesium 1.7 Total Bilirubin 0.8 AST 17 D ALT 26 Alkaline Phosphatase 96 Total Protein 7.8 Albumin 4.0 Globulin 3.7 Albumin/Globulin Ratio 1.1 Amylase Lipase Serum Ketones 06/27/16 05:00 WBC 5.3 RBC 4.73 Hgb 13.1 D Hct 38.8 MCV 82.0 MCH 27.8 MCHC 33.9 RDW 13.8 Plt Count 138 MPV 7.8 Neut % (Auto) 61.7 Lymph % (Auto) 25.5 [place] % (Auto) 10.6 H Eos % (Auto) 1.5 Baso % (Auto) 0.7 Neut # 3.3 Lymph # 1.4 [place] # 0.6 Eos # 0.1 Baso # 0.0 Sodium Potassium Chloride Carbon Dioxide Anion Gap BUN Creatinine Est GFR ( Amer) Est GFR (Non-Af Amer) POC Glucose (mg/dL) Random Glucose Calcium Phosphorus Magnesium Total Bilirubin AST ALT Alkaline Phosphatase Total Protein Albumin Globulin Albumin/Globulin Ratio Amylase Lipase Serum Ketones Fingerstick Blood Sugar Results: 163 Review of Systems - Review of Systems Review of Systems: as noted in subjective Critical Care Progress Note - Nutrition Nutrition: Nutrition Category Date Time Status Diabetic [Consistent Carbohydrate] [DIET] Diets 06/26/16 Breakfast Active Assessment/Plan - Assessment and Plan (Free Text) Assessment: 46 M with past medical history of DM Type I ( diagnosed 10 years ago) who presented to the ED yesterday with shortness of breath, nausea, vomiting, and abdominal pain. Pt admitted to ICU for DKA and now suspected pancreatitis though pancreatic enzymes are improving. Plan: Neuro: AAOx3 No neurologic deficit ETOH screen - negative Pulm: On n.c. O2 sat 98-99% RR stable 06/23/16 CXR: Diffuse increased interstitial markings suggestive for venous congestion and or interstitial infiltrates. Left hilar prominence. Biapical pleural thickening with upper lobe granulomatous changes. Cardio: Hx of HTN, Normotensive at this time 06/24/16 ECG: Sinus tachycardia, T wave abnormality, consider inferior ischemia. Troponin I: <0.0120 Monitor Heme: Stable GI: Acute pancreatitis, likely DKA associated Lipase and Amylase improving- tolerating diet- per GI, CT Pancreas protocol ordered to to unclear etiology of pancreas 06/24/16 CT abdomen/pelvis - Peripancreatic inflammatory stranding, peripancreatic adenopathy, and mild pancreatic edema consistent with acute pancreatitis. Small hiatal hernia/distal esophageal wall thickening and evidence of gastroesophageal reflux. Recommend further evaluation with endoscopy given prominent distal esophageal wall thickening of unclear significance. 06/24/16 U/S abdomen - Diffuse increased echogenicity in the liver may reflect hepatic steatosis, however, parenchymal infections/inflammatory etiologies cannot be entirely excluded. Clinical and laboratory correlation is advised. No evidence of chlelithiasis or biliary dilatation. Abdominal pain - resolving Lipid panel - [facility] GI Consulted (Dr. Owen Xiao) - help appreciated NPO, Continue IVF. Can advance to liquid diet with noted improvement. Would benefit from EGD evaluation of esophageal wall thickening non emrgently after pressing clinical matters are addressed. Endo: DKA Anion gap closing. IVF ns @ 75 cc/hr Insulin Glargine 30 units SC Q12, Aspart 12 units AC, ISS Zofran 4mg IVP Q6h Hgb A1c 12.0, FBS 187 (06/24/16 10:00) Accuchecks Q1h Nephro: BUN/Cr: stable Hypokalemia ( with insulin given)- repleted Phos - repleted ID: WBC stable Blood pending, urine negative, MRSA cultures not detected : UA (06/23/16): protein 1+, Glu 3+, Ketones 2+, Blood 1+, Leuk esterase - UDS pending Monitor Prophylaxis: DVT ppx: Lovenox 40mg subq daily, SCDs GI ppx: Pepcid 20mg IV Q12h
[2016-06-27] MEDS ORDERED: Potassium Chloride 20 mEq ER Tab PO ONE (08:15)
[2016-06-27] MEDS: (Novolog) Insulin Aspart, Recombinant 100 u/ml 10 ml vial SC SCH ×7 (08:33→22:38)
[2016-06-27 08:47] LABS: CHLORIDE 102 mmol/L (98-107)
[2016-06-27 08:48] LABS: POTASSIUM 3.4 mmol/L (3.6-5.2); SODIUM 134 mmol/L (132-148)
[2016-06-27 08:50] LABS: ALB/GLOB RATIO 0.9 (1.0-2.1); ALKALINE PHOSPHATASE 70 U/L (38-126); AST/SGOT 16 U/L (17-59); BILIRUBIN,TOTAL 0.9 mg/dL (0.2-1.3); BLOOD UREA NITROGEN 8 mg/dL (9-20); CARBON DIOXIDE 17 mmol/L (22-30); GFR AFRICAN-AMERICAN > 60; GLUCOSE,RANDOM 128 mg/dL (75-110)
[2016-06-27 08:51] LABS: ALT/SGPT 26 U/L (21-72); CALCIUM 7.8 mg/dl (8.6-10.4); CHOLESTEROL 146 mg/dL (0-199); MAGNESIUM 1.8 mg/dL (1.6-2.3); PHOSPHOROUS 2.6 mg/dL (2.5-4.5)
[2016-06-27] MEDS: (Lantus) Insulin Glargine, Recombinant SC SCH ×2 (09:13→21:56)
[2016-06-27] MEDS: Enoxaparin 40 mg Syringe SC SCH (09:14)
[2016-06-27 09:20] LABS: THYROID STIMULATING HORMONE 3.35 mIU/L (0.46-4.68)
--- NOTE | 2016-06-27 09:20 | CON ---
DATE: 06/26/2016 ROOM: ICU room 12. HISTORY OF PRESENT ILLNESS: This is a 46-year-old male with known history of type 1 insulin-dependen t diabetes, presenting here with intractable nausea, dyspepsia, and vomiting, and was evaluated to be in diabetic ketoacidosis and dehydration with concomitant acute pancreatitis and is now being referr ed for diabetic evaluation because of persistent metabolic acidosis and apparently, in review of the hospital course, has been in metabolic acidosis for almost 3 days at this time. He is currently stil l on an insulin drip infusion as given and noted. PAST MEDICAL HISTORY: As mentioned above, history of type 1 insulin-dependent diabetes diagnosed abo ia 10 years ago and is being followed by an post partum nurse in [facility]. He is currently on a c ombination of Lantus given as 35 units twice a day and Humalog given as 10 units before each meal 3 t imes a day. PAST MEDICAL HISTORY: As mentioned above, history of type 1 insulin-dependent diabetes on the above insulin combination, history of hypertensive cardiovascular disease and dyslipidemia. PAST SURGICAL HISTORY: The patient has history of a prior detached retina and underwent a repair of the aforementioned. FAMILY HISTORY: Possible hypertension and heart disease. Apparently his grandfather had coronary ar santiago disease. SOCIAL HISTORY: The patient has supportive family. No known substance use. REVIEW OF SYSTEMS: Admits to generalized body weakness with easy fatigability and tiredness and subo ptimal energy level. Also admits to recent bouts of dizziness and lightheadedness, worse on the day of admission. No chest pains or palpitations or PNDs. His oral intake has been variable and subopti mal with recent bouts of nausea, dyspepsia with intractable vomiting episodes, especially on the day of admission. He also admits to diffuse abdominal pain, worse in the upper abdominal area with persi stent dyspepsia and nausea as mentioned. Also, admits to marked polyuria, nocturia, polydipsia, and actually doubled his intake of water on the day of admission. PHYSICAL EXAMINATION: GENERAL: This is an overweight male in no apparent distress. VITAL SIGNS: Blood pressure 140/80, pulse of 70 beats per minute and regular, temperature 98, respir ations 20. Height is 5 feet 11 inches and weight is 235 pounds. HEENT: Head normocephalic. Eyes anicteric with pink conjunctivae. Fundoscopy not possible at this time. Ears, nose and throat otherwise normal. NECK: Supple. Thyroid gland is normal size. No carotid bruits or any cervical adenopathy. CARDIOPULMONARY: There is an adynamic precordium. S1, S2 is rapid and regular. LUNGS: Clear to auscultation. ABDOMEN: Flat, soft with positive bowel sounds. EXTREMITIES: No peripheral edema. Pulses are +2 bilaterally. LABORATORY DATA: The chemistries initially showed a BUN of 24, sodium 135, potassium 4.9, chloride 90, CO2 was 9, glucose is 589, and creatinine is 1.5. His hemoglobin A1c was 12%. The latest lipase level is 806 with an amylase of 178. ASSESSMENT: This is a 46-year-old male with uncontrolled and decompensated type 1 insulin-dependent diabetes presenting here with diabetic ketoacidosis and dehydration and apparently remains to have pe rsistent acidosis despite an ongoing insulin drip infusion for almost 3 days as noted. He also has a cute pancreatitis, the etiology of which has to be ascertained as to whether we are dealing with an a utoimmune related etiology versus a metabolic etiology related to dyslipidemia. With marked insulin deficiency, would expect impaired lipoprotein lipase levels which would contribute to the dyslipidemi a thereof. PLAN OF MANAGEMENT: As discussed with the nursing staff and subsequently with the residents, would c nabeel need continued vigorous IV hydration, especially in the light of persistent acidosis at this t nirav, even with apparent normal renal indices as noted. If the CO2 is at least about 15, would safely be able to discontinue the insulin drip and switch him over to a more physiologic insulin regimen wi th a combination of a basal and bolus insulin drug combination with Lantus, preferably to be given on ce a day at a higher dose at bedtime. Would start him on Lantus 40 and titrate upwards depending on the fasting glucose levels accordingly. Will also add Humalog or NovoLog here at the dose of 12-14 u nits t.i.d. before meals, and would titrate incrementally as indicated to optimize metabolic control. Would actually recommended outpatient diabetic management with use of an insulin pump which will gi ve continuous basal insulin and this will actually optimize his metabolic control, especially if he h as occasional bouts of vomiting with possible underlying gastroparesis which is a quite common autono gemma neuropathy or gastropathy in type 1 diabetics. Actually, the patient admits to having an [employer] insulin pump, which has yet to be used at home. Would obtain serial chemistries and supplement accor dingly as needed. Would reinforce diabetic education and dietary instructions also at the time of is admission. Jessica De Jesus MD cc: [id number] TT: 06/26/2016 16:06:11 Confirmation # [id number] Dictation # [id number] mn
--- NOTE | 2016-06-27 09:57 | CP.PCM.PN ---
Addendum entered and electronically signed by Sherin Meade DO 19:13: ordered CT Pancreas protocol with unclear etiology of pancreatitis Original Note: <Sherin Meade - Last Filed: 06/27/16 09:54> Subjective - Date & Time of Evaluation Date of Evaluation: 06/27/16 Time of Evaluation: 09:54 - Subjective Subjective: Gastroenterology Fellow/PGY4 Progress Note Patient slept well overnight. Tolerated regular diet yesterday. Continued resolution of epigastric pain. Normal bowel movement yesterday. A 12-point review of systems negative except for as above. Objective - Vital Signs/Intake and Output Vital Signs (last 24 hours): Temp Pulse Resp BP Pulse Ox 98 F 78 20 129/74 98 06/27/16 08:00 06/27/16 08:00 06/27/16 08:00 06/27/16 07:58 06/27/16 08:00 Intake and Output: 06/27/16 06/27/16 06:59 18:59 Intake Total 2189 150 Output Total 2000 0 Balance 189 150 - Medications Medications: Current Medications Acetaminophen (Tylenol 325mg Tab) 650 mg PO Q6 PRN PRN Reason: Headache Enoxaparin Sodium (Lovenox) 40 mg SC DAILY [facility] Last Admin: 06/27/16 09:14 Dose: 40 mg Famotidine (Pepcid) 20 mg PO Q12 [facility] Last Admin: 06/27/16 09:13 Dose: 20 mg Sodium Chloride (Sodium Chloride 0.45%) 1,000 mls @ 125 mls/hr IV .Q8H [facility] Last Admin: 06/26/16 23:08 Dose: 125 mls/hr Insulin Aspart (Novolog) 12 unit SC AC [facility] Last Admin: 06/27/16 09:23 Dose: 12 unit Insulin Aspart (Novolog) 0 unit SC ACHS [facility] PRN Reason: Protocol Last Admin: 06/27/16 08:33 Dose: Not Given Insulin Glargine (Lantus) 30 unit SC Q12H [facility] Last Admin: 06/27/16 09:13 Dose: 30 u Morphine Sulfate (Morphine) 2 mg IVP Q4H PRN PRN Reason: Pain, moderate (4-7) Ondansetron HCl (Zofran Inj) 4 mg IVP Q6H PRN PRN Reason: Nausea/Vomiting - Labs Labs: 06/27/16 05:00 06/27/16 08:27 - Constitutional Appears: Non-toxic, No Acute Distress - Head Exam Head Exam: ATRAUMATIC, NORMOCEPHALIC - Eye Exam Eye Exam: EOMI, PERRL Pupil Exam: PERRL. absent: Miosis, Mydriatic - ENT Exam ENT Exam: Mucous Membranes Moist, Normal Oropharynx - Neck Exam Neck Exam: Full ROM, Normal Inspection - Respiratory Exam Respiratory Exam: Clear to Ausculation Bilateral. absent: Rales, Rhonchi, Wheezes - Cardiovascular Exam Cardiovascular Exam: RRR, +S1, +S2. absent: Gallop, Rubs - GI/Abdominal Exam GI & Abdominal Exam: Soft, Normal Bowel Sounds. absent: Distended, Firm, Guarding, Rigid, Tenderness, Organomegaly, Rebound - Extremities Exam Extremities Exam: Full ROM. absent: Pedal Edema - Neurological Exam Neurological Exam: Alert, Awake - Psychiatric Exam Psychiatric exam: Normal Affect, Normal Mood - Skin Skin Exam: Dry, Intact, Normal Color, Warm Assessment and Plan - Assessment and Plan (Free Text) Assessment: 46 year old male with history of Type I diabetes and Hypertension presenting with epigastric pain, nausea, and vomiting. Active treatment of diabetic ketoacidosis, acute mild pancreatitis, and renal insufficiency. CT A/P shows distal esophageal wall thickening and pancreatic edema/stranding/adenopathy. Family history of pancreatic cancer. No prior EGD or colonoscopy. Poorly controlled T1DM DKA, resolved Acute mild pancreatitis, resolved Esophageal wall thickening Plan: >tolerating regular diet, changed to Diabetic/low fat diet >Pancreatitis- DDx: DKA, drug-induced, family history of pancreatic cancer >follow up outpatient for elective EGD to evaluate esophageal wall thickening and consider CT Pancreas protocol for further evaluation of pancreatitis if warranted >LFTs stable >Thank you for opportunity to participate in the care of this patient. Please contact with questions/concerns. <Fadi Xiao - Last Filed: 06/27/16 20:55> Objective - Vital Signs/Intake and Output Vital Signs (last 24 hours): Temp Pulse Resp BP Pulse Ox 98.8 F 94 H 20 138/78 100 06/27/16 16:00 06/27/16 16:00 06/27/16 16:00 06/27/16 16:00 06/27/16 16:00 Intake and Output: 06/27/16 06/28/16 18:59 06:59 Intake Total 775 Output Total 0 Balance 775 - Medications Medications: Current Medications Acetaminophen (Tylenol 325mg Tab) 650 mg PO Q6 PRN PRN Reason: Headache Enoxaparin Sodium (Lovenox) 40 mg SC DAILY [facility] Last Admin: 06/27/16 09:14 Dose: 40 mg Sodium Chloride (Sodium Chloride 0.9%) 1,000 mls @ 75 mls/hr IV .[id number] [facility] Last Admin: 06/27/16 19:16 Dose: 75 mls/hr Insulin Aspart (Novolog) 12 unit SC AC [facility] Last Admin: 06/27/16 17:07 Dose: 12 unit Insulin Aspart (Novolog) 0 unit SC ACHS [facility] PRN Reason: Protocol Last Admin: 06/27/16 17:09 Dose: Not Given Insulin Glargine (Lantus) 30 unit SC Q12H [facility] Last Admin: 06/27/16 09:13 Dose: 30 u Morphine Sulfate (Morphine) 2 mg IVP Q4H PRN PRN Reason: Pain, moderate (4-7) Ondansetron HCl (Zofran Inj) 4 mg IVP Q6H PRN PRN Reason: Nausea/Vomiting - Labs Labs: 06/27/16 05:00 06/27/16 08:27 Attending/Attestation - Attestation I have personally seen and examined this patient.: Yes I have fully participated in the care of the patient.: Yes I have reviewed all pertinent clinical information, including history, physical exam and plan: Yes Notes (Text): 06/27/16 20:51 I have seen and examined patient with GI fellow. Patient is seen sitting in chair near bedside, appears quite comfortable. He denies abdominal pain, nausea , vomiting, fever/chills. Tolerating PO diet without difficulty. Review of vitals from today are normal. DM, acute DKA Acute pancreatitis - etiology unclear Esophageal wall thickening seen on CT imaging - Obtain pancreatic protocol CT for further evaluation - Diet as tolerated - Diabetic management as per medical team - Patient would benefit from outpatient elective EGD for evaluation of distal esophageal thickening noted on imaging. Further plan including potential need for elective outpatient EUS pending results of imaging study.
[2016-06-27] MEDS: Sodium Chloride 0.45% 1,000 ML IV SCH (10:31)
[2016-06-27] MEDS ORDERED: Sodium Chloride 0.45% 1,000 ML IV SCH (12:09)
[2016-06-27] MEDS ORDERED: Potassium Chloride 20 mEq 100 ML IVPB ONE (13:00)
[2016-06-27 16:14] VITALS: RESP 20
--- NOTE | 2016-06-27 17:38 | PN ---
DATE: 06/27/2016 ROOM: 370 This is a 46-year-old male with recent uncontrolled type insulin-dependent diabetes presenting here w ith diabetic ketoacidosis and refractory acidosis despite intensive insulin therapy with an insulin d rip infusion as given for almost 72 hours as noted. He was also restarted back on vigorous IV hydrat ion yesterday as ordered. His latest chemistries today showed a BUN of 8, sodium 134, potassium 3.4, chloride 102, CO2 17, glucose is 128, creatinine 0.6. His glucose levels have ranged from 116-162 a nd 163 mg/dL. His lipase level has lowered down to 748 as noted. His TSH is 3.35. So at this time, we will continue the modified basal and bolus insulin regimen to allow for dose equilibration as thi s was only started this morning as ordered. We will continue the Lantus given as 30 units subQ every 12 hours as given. We will also continue the NovoLog given as 12 units subQ t.i.d. before meals as ordered. We will continue the low-dose correction scale using NovoLog insulin as given. We will tit rate incrementally as indicated to optimize metabolic control. We will follow. Jessica De Jesus MD cc: [id number] TT: 06/27/2016 17:37:34 Confirmation # [id number] Dictation # [id number] tn
[2016-06-27] MEDS ORDERED: Sodium Chloride 0.9% 1,000 ML IV SCH (19:00)
[2016-06-27] MEDS: Sodium Chloride 0.9% 1,000 ML IV SCH (19:16)
[2016-06-27] MEDS ORDERED: Iohexol 240 (50 ml) PO ONE (19:55)
[2016-06-27] MEDS ORDERED: Iodixanol 320 MG/ML 100 ML BOTTLE IV ONE (21:19)
[2016-06-28] MEDS: Sodium Chloride 0.9% 1,000 ML IV SCH ×2 (06:03→11:21)
--- NOTE | 2016-06-28 07:45 | CP.PCM.PN ---
Subjective - Date & Time of Evaluation Date of Evaluation: 06/27/16 Time of Evaluation: 17:00 - Subjective Subjective: Patient feeling well; tolerating diet; reports having run out of humalog at home and was using regular insulin for meal-time coverage at home, otherwise reports using his lantus regularly; he does admit to non-adherence with blood sugar monitoring; Objective - Vital Signs/Intake and Output Vital Signs (last 24 hours): Temp Pulse Resp BP Pulse Ox 98.1 F 78 20 140/81 96 06/28/16 07:23 06/28/16 07:23 06/28/16 07:23 06/28/16 07:23 06/28/16 07:23 Intake and Output: 06/28/16 06/28/16 06:59 18:59 Intake Total 1740 Output Total 600 Balance 1140 - Medications Medications: Current Medications Acetaminophen (Tylenol 325mg Tab) 650 mg PO Q6 PRN PRN Reason: Headache Enoxaparin Sodium (Lovenox) 40 mg SC DAILY [facility] Last Admin: 06/27/16 09:14 Dose: 40 mg Sodium Chloride (Sodium Chloride 0.9%) 1,000 mls @ 75 mls/hr IV .[id number] [facility] Last Admin: 06/28/16 06:03 Dose: 75 mls/hr Insulin Aspart (Novolog) 12 unit SC AC [facility] Last Admin: 06/27/16 17:07 Dose: 12 unit Insulin Aspart (Novolog) 0 unit SC ACHS [facility] PRN Reason: Protocol Last Admin: 06/27/16 17:09 Dose: Not Given Insulin Glargine (Lantus) 30 unit SC Q12H [facility] Last Admin: 06/27/16 21:56 Dose: 30 u Morphine Sulfate (Morphine) 2 mg IVP Q4H PRN PRN Reason: Pain, moderate (4-7) Ondansetron HCl (Zofran Inj) 4 mg IVP Q6H PRN PRN Reason: Nausea/Vomiting - Labs Labs: 06/27/16 05:00 06/27/16 08:27 - Constitutional Appears: Well, Non-toxic, No Acute Distress - Head Exam Head Exam: NORMAL INSPECTION - Eye Exam Eye Exam: Normal appearance. absent: Scleral icterus - ENT Exam ENT Exam: Mucous Membranes Moist - Neck Exam Neck Exam: Normal Inspection - Respiratory Exam Respiratory Exam: Clear to Ausculation Bilateral, NORMAL BREATHING PATTERN. absent: Rhonchi, Wheezes - Cardiovascular Exam Cardiovascular Exam: REGULAR RHYTHM, +S1, +S2 Additional comments: Palpable DP pulses bilaterally; - GI/Abdominal Exam GI & Abdominal Exam: Soft. absent: Distended, Tenderness - Extremities Exam Additional comments: No leg edema - Neurological Exam Neurological Exam: Alert, Awake Additional comments: Bilateral toes - sensory to soft touch intact - Psychiatric Exam Psychiatric exam: Normal Affect, Normal Mood - Skin Skin Exam: Warm. absent: Cyanosis Additional comments: No foot ulcers Assessment and Plan (1) Acute pancreatitis Assessment & Plan: Clinically resolving with no abd pain/tenderness, lipase decreasing; unclear etiology; getting pancreatic protocol CT today; NS at 75 cc/hr to avoid contrast nephropathy; Status: Acute (2) DKA (diabetic ketoacidosis) Assessment & Plan: Anion gap only mildly elevated; off insulin drip; on lantus 30 u q12h and aspart 12 u with meals; f/u with endo for further recs; patient counseled on need for diabetic care including ophtho and podiatry visits; Status: Acute (3) Prophylactic measure Assessment & Plan: lovenox for dvt prophylaxis; Status: Acute (4) Electrolyte abnormality Assessment & Plan: Mild hypokalemia, replenished; anion gap and non-gap acidosis (from NS for IVF) ; will d/c IVF after contrast CT; Status: Acute
[2016-06-28 07:48] LABS: BASO % 0.6 % (0.0-2.0); EOS # 0.1 K/uL (0.0-0.7); EOS % 1.8 % (0.0-4.0); HEMATOCRIT 39.7 % (35.0-51.0); LYMPH # 1.5 K/uL (1.0-4.3); LYMPH % 26.7 % (20.0-40.0); MEAN CORPUSCULAR HEMOGLOBIN 27.1 pg (27.0-31.0); MEAN CORPUSCULAR HGB CONC 34.1 g/dL (33.0-37.0); MEAN PLATELET VOLUME 7.9 fL (7.2-11.7); MONO # 0.6 K/uL (0.0-0.8); MONO % 10.6 % (0.0-10.0); NRBC % 0.1 % (0.0-2.0); RED CELL DISTRIBUTION WIDTH 13.5 % (11.5-14.5); WHITE BLOOD COUNT 5.7 K/uL (4.8-10.8)
[2016-06-28 07:59] LABS: MEAN CELL VOLUME 79.5 fL (80.0-94.0)
[2016-06-28 08:01] LABS: CHLORIDE 102 mmol/L (98-107); SODIUM 137 mmol/L (132-148)
[2016-06-28 08:03] LABS: ALKALINE PHOSPHATASE 63 U/L (38-126); AST/SGOT 12 U/L (17-59); BILIRUBIN,TOTAL 0.6 mg/dL (0.2-1.3); CARBON DIOXIDE 21 mmol/L (22-30); GFR AFRICAN-AMERICAN > 60; TOTAL PROTEIN 5.5 g/dL (6.3-8.3)
[2016-06-28 08:04] LABS: ALT/SGPT 17 U/L (21-72); BLOOD UREA NITROGEN 7 mg/dL (9-20); CALCIUM 7.8 mg/dl (8.6-10.4); GLUCOSE,RANDOM 106 mg/dL (75-110); PHOSPHOROUS 3.2 mg/dL (2.5-4.5)
[2016-06-28 08:05] LABS: MAGNESIUM 1.8 mg/dL (1.6-2.3)
[2016-06-28] MEDS: (Novolog) Insulin Aspart, Recombinant 100 u/ml 10 ml vial SC SCH ×5 (08:31→17:19)
--- NOTE | 2016-06-28 10:41 | CP.PCM.PN ---
<Sherin Meade - Last Filed: 06/28/16 10:35> Subjective - Date & Time of Evaluation Date of Evaluation: 06/28/16 Time of Evaluation: 10:36 - Subjective Subjective: Gastroenterology Fellow/PGY4 Progress Note Patient feels well. Continues tolerated regular diet. Bowel movement yesterday. A 12-point review of systems negative except for as above. Objective - Vital Signs/Intake and Output Vital Signs (last 24 hours): Temp Pulse Resp BP Pulse Ox 98.1 F 78 20 140/81 96 06/28/16 07:23 06/28/16 07:23 06/28/16 07:23 06/28/16 07:23 06/28/16 07:23 Intake and Output: 06/28/16 06/28/16 06:59 18:59 Intake Total 1740 Output Total 600 Balance 1140 - Medications Medications: Current Medications Acetaminophen (Tylenol 325mg Tab) 650 mg PO Q6 PRN PRN Reason: Headache Enoxaparin Sodium (Lovenox) 40 mg SC DAILY [facility] Last Admin: 06/27/16 09:14 Dose: 40 mg Sodium Chloride (Sodium Chloride 0.9%) 1,000 mls @ 75 mls/hr IV .[id number] [facility] Last Admin: 06/28/16 06:03 Dose: 75 mls/hr Insulin Aspart (Novolog) 12 unit SC AC [facility] Last Admin: 06/28/16 08:35 Dose: 12 unit Insulin Aspart (Novolog) 0 unit SC ACHS [facility] PRN Reason: Protocol Last Admin: 06/28/16 08:31 Dose: Not Given Insulin Glargine (Lantus) 30 unit SC Q12H [facility] Last Admin: 06/27/16 21:56 Dose: 30 u Morphine Sulfate (Morphine) 2 mg IVP Q4H PRN PRN Reason: Pain, moderate (4-7) Ondansetron HCl (Zofran Inj) 4 mg IVP Q6H PRN PRN Reason: Nausea/Vomiting - Labs Labs: 06/28/16 07:40 06/28/16 07:40 - Constitutional Appears: Non-toxic, No Acute Distress - Head Exam Head Exam: ATRAUMATIC, NORMOCEPHALIC - Eye Exam Eye Exam: EOMI, PERRL Pupil Exam: PERRL. absent: Miosis, Mydriatic - ENT Exam ENT Exam: Mucous Membranes Moist, Normal Oropharynx - Neck Exam Neck Exam: Full ROM, Normal Inspection - Respiratory Exam Respiratory Exam: Clear to Ausculation Bilateral. absent: Rales, Rhonchi, Wheezes - Cardiovascular Exam Cardiovascular Exam: RRR, +S1, +S2. absent: Gallop, Rubs - GI/Abdominal Exam GI & Abdominal Exam: Soft, Normal Bowel Sounds. absent: Distended, Firm, Guarding, Rigid, Tenderness, Organomegaly, Rebound - Extremities Exam Extremities Exam: Full ROM. absent: Pedal Edema - Neurological Exam Neurological Exam: Alert, Awake - Psychiatric Exam Psychiatric exam: Normal Affect, Normal Mood - Skin Skin Exam: Dry, Intact, Normal Color, Warm Assessment and Plan - Assessment and Plan (Free Text) Assessment: 46 year old male with history of Type I diabetes and Hypertension presenting with epigastric pain, nausea, and vomiting. Active treatment of diabetic ketoacidosis, acute mild pancreatitis, and renal insufficiency. CT A/P shows distal esophageal wall thickening and pancreatic edema/stranding/adenopathy. Family history of pancreatic cancer. No prior EGD or colonoscopy. Poorly controlled T1DM DKA, resolved Acute mild pancreatitis, resolved Esophageal wall thickening Plan: >continue diabetic/low fat diet >Pancreatitis-unclear etiology >pending CT Pancreas protocol read, follow up outpatient with Dr. Xiao to re- assess need for further workup based on results >will benefit from elective EGD to evaluate esophageal wall thickening noted on imaging >Thank you for opportunity to participate in the care of this patient. Please contact with questions/concerns. <Jaime Collins - Last Filed: 06/28/16 11:43> Objective - Vital Signs/Intake and Output Vital Signs (last 24 hours): Temp Pulse Resp BP Pulse Ox 98.1 F 78 20 140/81 96 06/28/16 07:23 06/28/16 07:23 06/28/16 07:23 06/28/16 07:23 06/28/16 07:23 Intake and Output: 06/28/16 06/28/16 06:59 18:59 Intake Total 1740 Output Total 600 Balance 1140 - Medications Medications: Current Medications Acetaminophen (Tylenol 325mg Tab) 650 mg PO Q6 PRN PRN Reason: Headache Enoxaparin Sodium (Lovenox) 40 mg SC DAILY [facility] Last Admin: 06/28/16 11:19 Dose: 40 mg Sodium Chloride (Sodium Chloride 0.9%) 1,000 mls @ 75 mls/hr IV .[id number] [facility] Last Admin: 06/28/16 11:21 Dose: Not Given Insulin Aspart (Novolog) 0 unit SC ACHS [facility] PRN Reason: Protocol Last Admin: 06/28/16 08:31 Dose: Not Given Insulin Aspart (Novolog) 10 unit SC AC [facility] Insulin Glargine (Lantus) 30 unit SC Q12 [facility] Last Admin: 06/28/16 11:19 Dose: 30 units Morphine Sulfate (Morphine) 2 mg IVP Q4H PRN PRN Reason: Pain, moderate (4-7) Ondansetron HCl (Zofran Inj) 4 mg IVP Q6H PRN PRN Reason: Nausea/Vomiting - Labs Labs: 06/28/16 07:40 06/28/16 07:40 Attending/Attestation - Attestation I have personally seen and examined this patient.: Yes I have fully participated in the care of the patient.: Yes I have reviewed all pertinent clinical information, including history, physical exam and plan: Yes Notes (Text): Patient seen and examined with GI fellow. Agree with her note as documented above with the following additions/exceptions. This is a 46 year old male with history of type I DM, HTN who presents with abdominal pain, nausea and vomiting. He is found to have diabetic ketoacidosis and acute pancreatitis. He is symptomatically improved. No current abdominal pain, nausea or vomiting. He is tolerating diet. Had BM yesterday. CT pancreas protocol without any significant inflammatory change, normal caliber PD and no mass visualized. Continue low fat diet as tolerated. Management of diabetes as per endocrinology. He will need outpatient follow up/elective EGD for evaluation of esophagitis seen on CT. Will sign off, please call with any questions or concerns. 06/28/16 11:41 06/28/16 11:43
[2016-06-28] MEDS ORDERED: (Lantus) Insulin Glargine, Recombinant SC SCH (11:00)
[2016-06-28] MEDS: (Lantus) Insulin Glargine, Recombinant SC SCH (11:10)
[2016-06-28] MEDS: Enoxaparin 40 mg Syringe SC SCH (11:19)
--- NOTE | 2016-06-28 11:20 | CT ---
PROCEDURE: CT Abdomen and Pelvis with contrast HISTORY: unclear etiology of pancreatitis. Abnormal pancreas on prior ultrasound. COMPARISON: Comparison is made to the previous CT without contrast dated 06/24/2016 previous ultrasound of the abdomen without contrast dated 06/24/2016 TECHNIQUE: Contrast dose: 100 mL of Visipaque 320. Radiation dose: Total exam DLP = 2340.32 mGy-cm. FINDINGS: LOWER THORAX: Unremarkable. LIVER: Unremarkable. No gross lesion or ductal dilatation. GALLBLADDER AND BILE DUCTS: No evidence of cholecystitis. The biliary tree is not dilated. PANCREAS: The pancreas enhance homogeneously. No CT evidence of significant peripancreatic inflammatory changes. The main pancreatic duct is not dilated. No CT evidence of enhancing mass lesion in the pancreas. SPLEEN: Unremarkable. ADRENALS: Unremarkable. No mass. KIDNEYS AND URETERS: Unremarkable. No hydronephrosis. No solid mass. VASCULATURE: Unremarkable. No aortic aneurysm. BOWEL: Unremarkable. No obstruction. No gross mural thickening. APPENDIX: Normal appendix. PERITONEUM: Unremarkable. No free fluid. No free air. LYMPH NODES: Unremarkable. No enlarged lymph nodes. BLADDER: Mild urinary bladder wall thickening is noted. REPRODUCTIVE: Unremarkable. BONES: No acute fracture. OTHER FINDINGS: None. IMPRESSION: No CT evidence of acute pathology or suspicious mass in the pancreas. No evidence of acute pathology or mass lesion in the upper abdomen. Mild urinary bladder wall thickening.
[2016-06-28] MEDS ORDERED: (Novolog) Insulin Aspart, Recombinant 100 u/ml 10 ml vial SC SCH (11:38)
--- NOTE | 2016-06-28 13:13 | PN ---
DATE: 06/28/2016 ROOM: 370 This is a 46-year-old male with recent uncontrolled type 1 insulin-dependent diabetes, presenting her e with diabetic ketoacidosis and dehydration, and has since then improved remarkably overnight with a lmost 3 days of persistent metabolic acidosis and is now being followed closely for metabolic managem ent. His latest chemistries today showed a BUN of 7, sodium 137, potassium 3.0, chloride 102, CO2 21, gluc ose 106 and creatinine 0.6. So at this time, would actually replenish the potassium deficiency, preferably with oral supplementat ion. We will also lower the basal and bolus insulin regimen because of the very poor and variable or al intake with the hospital food with preferential food from home as noted. The Humalog has been low ered to 10 units subQ t.i.d. before meals as ordered. We will continue the Lantus given as 30 units subQ every 12 hours at 10 a.m. and 10 p.m. daily as ordered. We will continue the low-dose correctio n scale using Humalog insulin as given. We will obtain serial chemistries and supplement accordingly as needed. We will follow. Jessica De Jesus MD cc: [id number] TT: 06/28/2016 13:13:01 Confirmation # [id number] Dictation # [id number] en
[2016-06-28] MEDS: Potassium Chloride 20 mEq ER Tab PO SCH ×2 (13:14→15:39)
[2016-06-28 17:38] VITALS: BP 153/93; PULSE 90; TEMP 97.9; O2SAT 97
--- NOTE | 2016-06-28 21:11 | CP.PCM.DIS ---
Provider - Provider Date of Admission: 06/23/16 20:03 Attending physician: Wang Hernandez MD Time Spent in preparation of Discharge (in minutes): 35 Diagnosis - Discharge Diagnosis (1) Acute pancreatitis Status: Acute Comment: Resolved; f/u with pmd. (2) DKA (diabetic ketoacidosis) Status: Acute Comment: Resolved; regular adherence to meds strongly advised as was f/u with endocrinology, pmd, podiatry and ophtho. (3) Electrolyte abnormality Status: Acute Comment: Metabolic acidosis resolving; potassium repleted; Hospital Course - Lab Results Lab Results: Micro Results 06/27/16 15:10 Naris MRSA Culture - Final MRSA DETECTED 06/23/16 Unknown Urine Urine Culture - Final No Growth (<1,000 CFU/ML) 06/23/16 Unknown Naris MRSA Culture (Admit) - Final MRSA NOT DETECTED Most Recent Lab Values WBC 5.7 K/uL (4.8-10.8) 06/28/16 07:40 RBC 4.99 Mil/uL (4.40-5.90) 06/28/16 07:40 Hgb 13.5 g/dL (12.0-18.0) 06/28/16 07:40 Hct 39.7 % (35.0-51.0) 06/28/16 07:40 MCV 79.5 fL (80.0-94.0) L D 06/28/16 07:40 MCH 27.1 pg (27.0-31.0) 06/28/16 07:40 MCHC 34.1 g/dL (33.0-37.0) 06/28/16 07:40 RDW 13.5 % (11.5-14.5) 06/28/16 07:40 Plt Count 169 K/uL (130-400) 06/28/16 07:40 MPV 7.9 fL (7.2-11.7) 06/28/16 07:40 Neut % (Auto) 60.3 % (50.0-75.0) 06/28/16 07:40 Lymph % (Auto) 26.7 % (20.0-40.0) 06/28/16 07:40 [place] % (Auto) 10.6 % (0.0-10.0) H 06/28/16 07:40 Eos % (Auto) 1.8 % (0.0-4.0) 06/28/16 07:40 Baso % (Auto) 0.6 % (0.0-2.0) 06/28/16 07:40 Neut # 3.4 K/uL (1.8-7.0) 06/28/16 07:40 Lymph # 1.5 K/uL (1.0-4.3) 06/28/16 07:40 [place] # 0.6 K/uL (0.0-0.8) 06/28/16 07:40 Eos # 0.1 K/uL (0.0-0.7) 06/28/16 07:40 Baso # 0.0 K/uL (0.0-0.2) 06/28/16 07:40 Neutrophils % (Manual) 88 % (50-75) H 06/23/16 19:06 Lymphocytes % (Manual) 10 % (20-40) L 06/23/16 19:06 Monocytes % (Manual) 2 % (0-10) 06/23/16 19:06 Platelet Estimate Normal (NORMAL) 06/23/16 19:06 pO2 80 mm/Hg (30-55) H 06/23/16 19:10 VBG pH 6.90 (7.32-7.43) L* 06/23/16 19:10 VBG pCO2 12 mmHg (40-60) L* 06/23/16 19:10 VBG HCO3 1.8 mmol/L 06/23/16 19:10 VBG Total CO2 2.8 mmol/L (22-28) L 06/23/16 19:10 VBG O2 Sat (Calc) 97.6 % (40-65) H 06/23/16 19:10 VBG Base Excess -29.1 mmol/L (0.0-2.0) L 06/23/16 19:10 VBG Potassium 2.0 mmol/L (3.6-5.2) L* 06/23/16 19:10 Sodium 144.0 mmol/l (132-148) 06/23/16 19:10 Chloride 126.0 mmol/L (98-107) H 06/23/16 19:10 Glucose 284 mg/dl (75-110) H 06/23/16 19:10 Lactate 1.8 mmol/L (0.7-2.1) 06/23/16 19:10 Crit Value Called To Dr. gautam 06/23/16 19:10 Crit Value Called By Chanda liriano rcp 06/23/16 19:10 Crit Value Read Back Y 06/23/16 19:10 Blood Gas Notified Time 191906/23/16 19:10 Sodium 137 mmol/L (132-148) 06/28/16 07:40 Potassium 3.0 mmol/L (3.6-5.2) L 06/28/16 07:40 Chloride 102 mmol/L (98-107) 06/28/16 07:40 Carbon Dioxide 21 mmol/L (22-30) L 06/28/16 07:40 Anion Gap 17 (10-20) 06/28/16 07:40 BUN 7 mg/dL (9-20) L 06/28/16 07:40 Creatinine 0.6 MG/DL (0.8-1.5) L 06/28/16 07:40 Est GFR ( Amer) > 60 06/28/16 07:40 Est GFR (Non-Af Amer) > 60 06/28/16 07:40 POC Glucose (mg/dL) 160 mg/dL (65-110) H 06/28/16 16:46 Random Glucose 106 mg/dL (75-110) 06/28/16 07:40 Hemoglobin A1c 12.0 % (4.2-6.5) H 06/24/16 06:20 Calcium 7.8 mg/dl (8.6-10.4) L 06/28/16 07:40 Phosphorus 3.2 mg/dL (2.5-4.5) 06/28/16 07:40 Magnesium 1.8 mg/dL (1.6-2.3) 06/28/16 07:40 Total Bilirubin 0.6 mg/dL (0.2-1.3) 06/28/16 07:40 AST 12 U/L (17-59) L D 06/28/16 07:40 ALT 17 U/L (21-72) L D 06/28/16 07:40 Alkaline Phosphatase 63 U/L (38-126) 06/28/16 07:40 Troponin I < 0.0120 ng/mL (0.00-0.120) 06/23/16 19:06 Total Protein 5.5 g/dL (6.3-8.3) L 06/28/16 07:40 Albumin 2.8 g/dL (3.5-5.0) L 06/28/16 07:40 Globulin 2.8 gm/dL (2.2-3.9) 06/28/16 07:40 Albumin/Globulin Ratio 1.0 (1.0-2.1) 06/28/16 07:40 Triglycerides 98 mg/dL (0-149) 06/27/16 08:27 Cholesterol 146 mg/dL (0-199) 06/27/16 08:27 LDL Cholesterol Direct 91 mg/dL (0-129) 06/27/16 08:27 HDL Cholesterol 33 mg/dL (30-70) 06/27/16 08:27 Amylase 178 U/L (30-110) H D 06/26/16 06:08 Lipase 748 U/L (23-300) H 06/27/16 08:27 TSH 3rd Generation 3.35 mIU/L (0.46-4.68) 06/27/16 08:27 Venous Blood Potassium 2.0 mmol/L (3.6-5.2) L* 06/23/16 19:10 Urine Color Yellow (YELLOW) 06/25/16 10:33 Urine Clarity Clear (Clear) 06/25/16 10:33 Urine pH 5.0 (5.0-8.0) 06/25/16 10:33 Ur Specific Sims 1.025 (1.003-1.030) 06/25/16 10:33 Urine Protein Negative mg/dL (NEGATIVE) 06/25/16 10:33 Urine Glucose (UA) 3+ mg/dL (Normal) H 06/25/16 10:33 Urine Ketones 2+ mg/dL (NEGATIVE) H 06/25/16 10:33 Urine Blood Negative (NEGATIVE) 06/25/16 10:33 Urine Nitrate Negative (NEGATIVE) 06/25/16 10:33 Urine Bilirubin Negative (NEGATIVE) 06/25/16 10:33 Urine Urobilinogen Normal mg/dL (0.2-1.0) 06/25/16 10:33 Ur Leukocyte Esterase Neg Mariangel/uL (Negative) 06/25/16 10:33 Urine WBC (Auto) < 1 /hpf (0-5) 06/25/16 10:33 Urine RBC (Auto) < 1 /hpf (0-3) 06/25/16 10:33 Alcohol, Quantitative < 10 mg/dl (0-10) 06/24/16 14:40 Serum Ketones Small (NEGATIVE) 06/26/16 06:08 - Hospital Course Hospital Course: Patient admitted to ICU with DKA after presenting with persistent vomiting; also found to have acute pancreatitis high markedly elevated lipase level; DKA resolved with IVF and insulin drip; pancreatitis also resolved with decreasing lipase levels; GI consulted for pancreatitis as etiology was unclear; lipid panel unremarkable as was CT pancrease (pacreatic protocol) done on day before d/c; Endocrinology consulted for help in insulin dosing; Patient reportedly was not adherent to blood sugar monitoring at home; reports taking basal insulin regularly but with some change in his meal-time insulin after running out of the latter; A1C 12 overall consistent with poorly controlled blood sugar; Patient being discharged on lantus 30 u bid and novolog 10 u tid with meals; he is instructed to f/u with PMD and radiator tester within next 1 week, and to have f/u with podiatry and ophthalmology. Patient also found to have positive MRSA nasal screen, being discharged on bactroban ointment to apply to both nares bid for 5 days. Patient not being discharged on anti-htn meds as BP with normotensive readings off meds. Discharge Exam - Head Exam Head Exam: ATRAUMATIC, NORMOCEPHALIC - Eye Exam Eye Exam: Normal appearance. absent: Scleral icterus - Neck Exam Neck exam: Normal Inspection - Respiratory Exam Respiratory Exam: NORMAL BREATHING PATTERN. absent: Rales, Rhonchi - Cardiovascular Exam Cardiovascular Exam: REGULAR RHYTHM, +S1, +S2 - GI/Abdominal Exam Additional comments: Obese; - Extremities Exam Additional comments: No leg edema; - Neurological Exam Neurological exam: Alert, Normal Gait - Psychiatric Exam Psychiatric exam: Normal Affect, Normal Mood - Skin Skin Exam: Warm Discharge Plan - Discharge Medications Prescriptions: Mupirocin 2% Nasal [Bactroban 2% Nasal] 1 gm GHADA BID #22 gm Insulin Glargine, Recombina [Lantus] 30 unit SC Q12 #20 ml Insulin Aspart, Recombinant [Novolog] 10 unit SC AC #10 ml Simvastatin [Zocor] 20 mg PO HS #30 tablet - Follow Up Plan Condition: IMPROVED Disposition: HOME/ ROUTINE Instructions: Simvastatin (By mouth), Insulin Aspart, Recombinant (By injection ), Mupirocin (Into the nose), Insulin Glargine (By injection), Diabetic Ketoacidosis (DC), Meal Planning with Diabetes Exchanges (DC), Diabetic Foot Ulcers (DC) Additional Instructions: Patient to be discharged home per Dr. Rosenberg. Patient will continue his current insulin regimen. He will also take Zocor 20mg at night daily. Patient will be given a 30 supply of his medication. He will follow up with his PMD for post hospital follow up care and for medication refill. He will also follow up with his radiator tester within 1 week of discharge as well. Patient will return to ED if symptoms return.
== END 2016-06-28 20:00 | disposition home or self-care (01) | DRG 637 ==
LOC: C.ER 18:26 → C.9I 20:03 → C.3T 06-27 14:15
PROVIDERS: ADMIT Internal Medicine; ATTEND Internal Medicine
DX: E10.10 Type 1 diabetes mellitus with ketoacidosis without coma (principal); K85.90 Acute pancreatitis without necrosis or infection, unspecified; I11.9 Hypertensive heart disease without heart failure; E86.0 Dehydration; E87.6 Hypokalemia; E78.5 Hyperlipidemia, unspecified; K20.9 Esophagitis, unspecified; N28.9 Disorder of kidney and ureter, unspecified; Z82.49 Family history of ischemic heart disease and other diseases of the circulatory system; Z80.0 Family history of malignant neoplasm of digestive organs; Z79.4 Long term (current) use of insulin